=== PATIENT | male | born 1960 | race African-American/Black ===

== ENCOUNTER 2024-11-16 16:19 | Outpatient (AMB) | payer OTHER, SELFPAY ==
--- OUTSIDE RECORDS SUMMARY | 2024-11-16 16:20 | XMS_ITS | Clinical Summary ---
Author Organization [facility] Address [address] [place] [address] Care Team Providers Care President Practicing Urologist Name Role Phone Philomena Mendez Primary Care Provider [phone] Source Comments PLEASE NOTE, if this patient is a minor, it may be UNLAWFUL to discuss sensitive information that is contained in these records (such as FAMILY PLANNING, MENTAL HEALTH or SUBSTANCE ABUSE) with the minor patient's parent or other person without the patient's specific authorization.[facility] Allergies No known active allergies Medications metFORMIN (GLUCOPHAGE) 500 mg tablet Take 500 mg by mouth twice a day 4 Active BIKTARVY 50-200-25 mg tabIndications: Asymptomatic HIV infection (HCC-CMS) Take 1 Tablet by mouth daily. VACATION REFILL 90 Tablet 1 5 Active albuterol HFA (VENTOLIN HFA) 90 mcg/actuation inhalerIndicati ons:Chronic obstructive pulmonary disease, unspecified COPD type (HCC-CMS) Inhale 1-2 Puffs into the lungs every 6 (six) hours as needed for shortness of breath for up to 30 days 18 g 2 5 11/18/19 25 Active fluticasone propion-salmete roL (ADVAIR DISKUS) 250-50 mcg/dose diskus inhalerIndicati ons:Chronic obstructive pulmonary disease, unspecified COPD type (HCC-CMS) Inhale 1 Puff into the lungs 2 (two) times daily 120 Each 3 5 Active atorvastatin (LIPITOR) 80 mg tabletIndicatio ns:Coronary artery disease involving [place] heart without angina pectoris, unspecified vessel or lesion type Take 1 Tablet by mouth once daily 90 Tablet 1 5 Active apixaban (ELIQUIS) 5 mg tab Take 1 Tablet by mouth 2 (two) times daily 90 Tablet 5 Active metoprolol succinate XL (TOPROL-XL) 25 mg 24 hr tabletIndicatio ns:Coronary artery disease involving [place] heart without angina pectoris, unspecified vessel or lesion type Take 1 Tablet by mouth daily 90 Tablet 1 5 Active ezetimibe (ZETIA) 10 mg tablet Take 1 Tablet by mouth once daily 90 Tablet 1 5 Active TAB-A-RIC 400 mcg tab Take 1 Tablet by mouth daily. Separate from Biktarvy by 6 hours 90 Tablet 3 5 Active ammonium lactate (AMLACTIN) 12 % cream Apply topically as needed for dry skin 140 g 3 5 Active ammonium lactate (AMLACTIN) 12 % cream Apply topically as needed for dry skin 140 g 3 4 10/19/19 25 Discontinu ed(Reorder (E-Cancel Not Sent)) TAB-A-RIC 400 mcg tab Take 1 Tablet by mouth daily. Separate from Biktarvy by 6 hours 90 Tablet 3 4 10/19/19 25 Discontinu ed(Reorder (E-Cancel Not Sent)) atorvastatin (LIPITOR) 80 mg tabletIndicatio ns:Coronary artery disease involving [place] heart without angina pectoris, unspecified vessel or lesion type Take 1 Tablet by mouth once daily 90 Tablet 1 4 10/19/19 25 Discontinu ed(Reorder (E-Cancel Not Sent)) metoprolol succinate XL (TOPROL-XL) 25 mg 24 hr tabletIndicatio ns:Coronary artery disease involving [place] heart without angina pectoris, unspecified vessel or lesion type Take 1 Tablet by mouth daily 90 Tablet 1 4 10/19/19 25 Discontinu ed(Reorder (E-Cancel Not Sent)) albuterol HFA (VENTOLIN HFA) 90 mcg/actuation inhalerIndicati ons:Chronic obstructive pulmonary disease, unspecified COPD type (HCC-CMS) Inhale 1-2 Puffs into the lungs every 6 (six) hours as needed for shortness of breath for up to 30 days 18 g 2 4 10/19/19 25 Discontinu ed(Reorder (E-Cancel Not Sent)) ezetimibe (ZETIA) 10 mg tablet Take 1 Tablet by mouth once daily 90 Tablet 1 4 10/19/19 25 Discontinu ed(Reorder (E-Cancel Not Sent)) apixaban (ELIQUIS) 5 mg tab Take 1 Tablet by mouth 2 (two) times daily 90 Tablet 4 10/19/19 25 Discontinu ed(Reorder (E-Cancel Not Sent)) fluticasone propion-salmete roL (ADVAIR DISKUS) 250-50 mcg/dose diskus inhalerIndicati ons:Chronic obstructive pulmonary disease, unspecified COPD type ([facility]) Inhale 1 Puff into the lungs 2 (two) times daily 120 Each 3 4 10/19/19 25 Discontinu ed(Reorder (E-Cancel Not Sent)) BIKTARVY 50-200-25 mg tabIndications: Asymptomatic HIV infection ([facility]-CMS) Take 1 Tablet by mouth daily. VACATION REFILL 90 Tablet 1 4 10/19/19 25 Discontinu ed(Reorder (E-Cancel Not Sent)) Active Problems Problem Noted Date Diagnosed Date Multiple lung nodules on CT 01/21/2023 Overview (02/05/2023): LDCT 10/24/2022- 3mm solid nodule in upper lobe 5mm solid nodule in right upper lobe 8mm solid nodule in LL lobe 6mm solid nodule in RLL 4mm solid nodule in RLL 3mm solid nodule in JOHAN 6mm solid nodule in LLL Severe centrilobular emphysema, linear atelectasis left posterior costophrenic angle LUNG RADS category 4A( suspicious 5-15% chance of malignancy) Radiologist recommend LDCT repeat in 3 months - was done 01/29/2023 At risk for decreased bone density 01/21/2023 Overview (01/21/2023): Bone dexa 10/04/2022, normal bone density LS z score -1.4, L fem neck z-score -0.7, left total hip z-score -0.6 Coronary artery disease invo lving [place] heart without angina pectoris 09/21/2022 History of COPD 09/21/2022 History of heart attack 09/21/2022 Overview (09/23/2022): CA x1 2020- stents x 3. Sees radio board operator announcer Dr. Trey Chavez - sees three times a year Kaposi's sarcoma, unspecified ([facility]) 09/21/20 Chronic ulcer of left leg, l imited to breakdown of skin ([facility]) 09/21/2022 Tobacco abuse 09/21/2022 Adjustment disorder with mixed anxiety and depre ssed mood 08/15/2022 Asymptomatic HIV infection ([facility]) 02/24/2014 Overview (04/01/2023): Dx 1986 , vale 300 Initiated ART 1987 OI hx: PCP, [place] Denies lymphadenopathy, fatigue, night sweats, vision changes, myalgias, rashes ART Hx Viread, Combivir, TZV Atripla--->(switched 01/2018 bc VL 103 and CD4 >400 but KS growing despite only a few doses missed atripla) Biktarvy- does not recall otherwise. 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 -PI- intermediate resistance to SQV/IDV, low level resistance to ATR/FPV Cachexia ([facility]) 06/04/2012 History of DVT (deep vein thrombosis) 05/25/2012 Overview (09/23/2022): Hx DVT 1997 unknown cause (possibly r/t flight) -stopped coumadin 2012 ok'd by hem Resolved Problems Problem Noted Date Diagnosed Date Resolved Date Lichenified eczema 09/21/2022 2 Mixed emotional features as adjustment reaction 01/27/2014 09/23/2022 Lymphadenopathy 05/25/2012 09/23/2022 Encounters Date Type Department Care Team Description 09/01/2024 11:15 AM EST Office Visit [facility] [address] [place] [address] Philomena Mendez Asymptomatic HIV infection ([facility]) (Primary Dx); Encounter for long-term (current) use of medications from Last 3 Months Immunizations Name Administration Dates Next Due Flu, Preservative Free 08/21/2023,2020,08/26/2016,08/28 INFLUENZA, SEASONAL, INJECTA BLE, PRESERVATIVE FREE 07/07/2024 JASVIR COVID-19 VACCINE 01/10/2021 MENINGOCOCCAL MCV4O (MENVEO) 05/18/2019 MODERNA COVID-19 VACCINE BIV ALENT, BLUE CAP, 6M+ 09/23/2022 PNEUMOCOCCAL CONJUGATE PCV 13 03/19/2016 PNEUMOCOCCAL POLYSACCHARIDE PPV23 05/18/2019 Smallpox Mpox (JYNNEOS) Vaccine 07/03/2022,05/31 TDAP 11/08/2019 ZOSTER VACCINE, RECOMBINANT (SHINGRIX) 2 Family History Medical History Relation Name Comments Colon Cancer Other Father in Law Relation Name Status Comments Father Other Father in Law Social History Tobacco Use Types Packs/Day Years Used Date Smoking Tobacco: Every Day Cigarettes Smokeless Tobacco: Never Alcohol Use Standard Drinks/Week Comments Yes 0 (1 standard drink = 0.6 oz pur e alcohol) Social Connections Answer Date Recorded Connectedness 0 06/25/2024 Financial Resource Strain Answer Date R ecorded Financial Resource Strain 0 2021 Stress Answer Date Recorded Stress 0 07/12/2022 Physical Activity Answer Date Recorded Physical Activity 0 07/12/2022 Food Insecurity Answer Date Recorded Food 0 07/08/2024 Transportation Needs Answer Date Record ed Transportation 0 07/12/2022 Housing Stability Answer Date Recorded Housing 0 07/12/2022 Safety and Environment Answer Date Demarco rded Safety 0 07/12/2022 Utilities Answer Date Recorded Utilities 0 07/12/2022 Employment Answer Date Recorded Stress 0 06/25/2024 Sex and Gender Information Value Date Recorded Sex Assigned at Male 08/15/2022 5:19 AM PDT Legal Sex Male 6:59 AM PDT Gender Identity Male 07/22/2022 10:02 AM PDT Sexual Orientation Son 07/22/2022 10 :02 AM PDT Last Filed Vital Signs Vital Sign Reading Time Taken Comments Blood Pressure 132/75 09/01/2024 11:26 AM EST Pulse 71 09/01/2024 11:26 AM EST Temperature 36.8 ??C (98.2 ??F) 09/01/2024 11:[address] Respiratory Rate 16 09/01/2024 11:26 AM EST Oxygen Saturation 94% 09/01/2024 11:26 AM EST Inhaled Oxygen Concentration - - Weight 74.2 kg (163 lb 9.6 oz) 09/01/2024 11:26 AM EST Height 170.2 cm (5' 7 ) 09/01/2024 11:26 AM EST Body Mass Index 25.62 09/01/2024 11:26 AM EST Plan of Treatment Health Maintenance Due Date Last Done Comments Hepatitis B Screening 1960 Tobacco Cessation Counseling (#1) 1960 Imm-MMR (1 of 2 - Risk 2-dos e series) 1978 Imm-Hepatitis A (1 of 2 - Ri sk 2-dose series) 1979 CT Colonography 2005 Colonoscopy 2005 Colorectal Cancer Screening 2005 FIT/gFOBT 2005 Fecal DNA 2005 Flexible Sigmoidoscopy 2005 Imm-Meningococcal (2 - Risk 2-dose series) 07/13/2019 05/18/2019 Imm-Hepatitis B (1 of 3 - Ri sk 3-dose series) 2020 Lipid Screening 09/23/2023 09/23/2022, 01/2022, 03/25/2022, Additional history exists Imm-Pneumococcal (3 of 3 - PPSV23, PCV20 or PCV21) 05/18/2024 05/18/2019, 03/19/2016 Byt-UPSIW-25 ( season) 2024 09/23/2022, 03/25/2022, 08/27/2021, Additional history exists Alcohol and Drug Screen 10/13/2024 09/01/2024, 09/01 Depression Annual Screen 10/13/2024 09/23/2022 Anal Pap Testing 03/24/2025 03/24/2024, , 06/07/2020, Additional history exists Diabetes Screening 09/01/2025 09/01/2024, 0 04/06/2024, 03/24/2024, Additional history exists Hypertension Screening (#1) 09/01/2025 Imm-DTaP/Tdap/Td (2 - Td or Tdap) 11/08/2029 020 Imm-Zoster, Recombinant Discontinued 05/21/2022 Imm-Mpox (formerly Monkeypox) Completed 07/03/2022, 05/31/2022 Hepatitis C Screening Completed 01/20/2023 , 09/23/2022, 08/27/2021, Additional history exists Imm-Influenza Completed 07/07/2024, 06/2023, 08/27/2021, Additional history exists Procedures Procedure Name Priority Date/Time Associated Diagnosis Comments T CELLS ABSOLUTE CD4&CD8 COUNT RATIO Routine 09/01/2024 12:14 PM EST Asymptomatic HIV infection (HCC-CMS) Encounter for long-term (current) use of medications IADNA HIV-1 QUANT & REVERSE NAIL CUTTER Routine 09/01/2024 12:14 PM EST Asymptomatic HIV infection (HCC-[facility]) Encounter for long-term (current) use of medications HEMOGLOBIN GLYCOSYLATED A1C Routine 09/01/2024 12:14 PM EST Asymptomatic HIV infection (HCC-CMS) Encounter for long-term (current) use of medications ANAL (RECTAL) CYTOLOGY Routine 1:52 PM EDT Asymptomatic HIV infection (HCC-CMS) History of heart attack Coronary artery disease involving [place] heart without angina pectoris, unspecified vessel or lesion type Screening for malignant neoplasm of the rectum Encounter for long-term (current) use of medications HEPATITIS C ANTIBODY WITH REFLEX TO HCV, RNA, QUANTITATIVE, REAL-TIME PCR (REFL) Routine 01/20/2023 3:58 PM EDT Asymptomatic HIV infection (HCC-CMS) LIPID PANEL Routine 09/23/2022 2:54 PM EST Asymptomatic HIV infection (HCC-CMS) from Last 3 Months or Most Recently Relevant to Health Maintenance Results * HIV 1, QUANT, REAL-TIME PCR (09/01/2024 12:14 PM EST) HIV-1,RNA,PCR,ULTR A <20 D <20 copies/mL [facility] Comment: HIV-1 ULTRAQUANT,RNA INTERPRETATION ? HIV-1 (copies/mL) ?Interpretation ? <20 ND ?Not Detected ? <20 D ? Detected* ? 20 - >10,000,000 ?Detected ?*Low positive values for HIV-1, PCR may not be ?useful for diagnostic evaluation. NOTE: Results for [employer] 8800 HIV-1 assay reports ?with a range of <20-10 million copies/mL. This test ?should be used for prognostic purposes only. HIV-1 RNA (log-10) <1.30 D <1.30 log-10 [facility] Blood Blood / Unknown 09/01/2024 1 2:14 PM EST 09/01/2024 9:14 PM EST Philomena Mendez LAB - BLOOD DRAW Final Result [facility] [address] [place] [address], * (ABNORMAL) T CELLS ABSOLUTE CD4&CD8 COUNT RATIO (09/01/2024 12:14 PM EST) WBC 5.55 3.66 - 10.60 x10(3)/uL [facility] RBC 4.96 3.94 - 5.76 x10(6)/uL [facility] HGB 15.1 12.0 - 16.9 g/dL [facility] HCT 44.2 34.6 - 49.6 % [facility] MCV 89.1 78.0 - 98.0 fL [facility] MCH 30.4 25.8 - 33.1 pg [facility] MCHC 34.2 31.7 - 35.3 g/dL [facility] RDW 12.5 12.2 - 15.3 % [facility] POLYS 41.1 34.9 - 75.3 % [facility] ABSOLUTE POLYS COUNT 2.28 1.30 - 7.00 x10(3)/uL [facility] LYMPH % 45.9 14.0 - 51.8 % [facility] ABSOLUTE LYMPHOCYTE COUNT 2.55 0.80 - 3.00 x10(3)/uL [facility] MONOS 8.5 3.5 - 13.2 % [facility] ABSOLUTE MONOCYTE COUNT 0.47 0.00 - 1.00 x10(3)/uL [facility] EOS 3.6 0.0 - 6.2 % [facility] ABSOLUTE EOSINOPHIL COUNT 0.20 0.00 - 0.40 x10(3)/uL [facility] BASOPHILS 0.7 0.0 - 1.0 % [facility] ABSOLUTE BASOPHIL COUNT 0.04 0.00 - 0.10 x10(3)/uL [facility] IMMATURE GRANULOCYTES 0.2 0.0 - 1.0 % [facility] PLATELET 213 140 - 425 x10(3)/uL [facility] MPV 11.7 8.6 - 12.1 fL [facility] IG, ABS. COUNT 0.01 0.00 - 0.09 x10(3)/uL [facility] % CD 3 POS. LYMPH. 66.8 54.9 - 87.2 % [facility] ABSOLUTE CD 3 1,702 859 - 2,957 cells/uL [facility] % CD 4 POS. LYMPH. 26.1(L) 31.6 - 60.4 % [facility] ABSOLUTE CD 4 HELPER 665 591 - 1,588 cells/uL [facility] % CD 8 POS. LYMPH. 40.1 12.9 - 49.9 % [facility] ABSOLUTE CD 8 (SUPP) 1,022 213 - 1,782 cells/uL [facility] CD4/CD8 RATIO 0.65 0.60 - 4.40 [facility] CD19, PERCENTAGE 16.8 6.9 - 27.4 % [facility] TOTAL B CELLS CD19, ABSOLUTE 428 110 - 822 cells/uL [facility] CD16+/CD56+ NK-IUH 16.0 4.5 - 33.1 % [facility] ABS CD16+/CD56+-IUH 408 105 - 834 cells/uL [facility] Comment:Note: IMMUNE DEF.[facility])CD4/CD8: Reference ranges eff. 02/18/2014. Blood Blood / Unknown 09/01/2024 1 2:14 PM EST 09/01/2024 9:14 PM EST Philomena Mendez LAB - BLOOD DRAW Final Result [facility] [address] [place] [address], * (ABNORMAL) HEMOGLOBIN GLYCOSYLATED A1C (09/01/2024 12:14 PM EST) Hemoglobin A1c (Glycohgb) 6.7(H) <5.7 % [facility] Comment: HEMOGLOBIN A1c AND eAG REFERENCE RANGES ? A1c(%) ? DIABETES CATEGORY* ? <5.7 ? Normal (non-diabetic) ?5.7-6.4 ? Increased risk of diabetes ? =>6.5 ?Consistent with diabetes ? A1c(%) ? eAG(ESTIMATED AVERAGE PLASMA GLUCOSE)(mg/dL) ?6 ? 126 ?7 ? 154 ?8 ? 183 ?9 ? 212 ? 10 ? 240 ? 11 ? 269 ? 12 ? 298 ? *recommended ranges-[place] [employer](2010) NOTE: The amount of glycated hemoglobin as measured by the HbA1c test may be ?overestimated in Americans and should not be used as the sole ?parameter of glycemic burden. ??Similarly, hemolysis, genetic hemoglobin ?variants and chemically modified hemoglobin derivatives (as seen in ?renal failure, smoking, aspirin use) may also affect glycated hemoglobin ?levels. Blood Blood / Unknown 09/01/2024 1 2:14 PM EST 09/01/2024 9:14 PM EST Philomena Mendez LAB - BLOOD DRAW Final Result Performing Organization Address City/[facility] [address]/ZIP Co de Phone Number [facility] [address] [place] [address], * (ABNORMAL) ANAL (RECTAL) CYTOLOGY (03/24/2024 1:52 PM EDT) ANAL CYTOPATHOLOGY, THINPREP ASC-US(A) Normal [facility] Comment: DIAGNOSIS: ? Atypical squamous cells of undetermined ? significance (ASC-US) ADEQUACY: ?Satisfactory for evaluation / No transformation ? zone component identified. SPECIMEN SOURCE: ?? ANAL CYTOPATHOLOGY, THINPREP, ANAL CLINICAL ? INFORMATION: ? Provided Diagnosis Codes: ? Z21,I25.2,I25.10,Z12.12,Z79.899 ELECTRONICALLY ? SIGNED BY: ? Screened By: Adalgisa Hedrick CT (ASCP) ? Pathologist Review By: Amira Davila M.D. ? Case Electronically Signed 03/26/2024 RECTAL SWAB Specimen from rectum / Unknown 03/24/2024 1:52 PM EDT 03/24/2024 10:49 PM EDT Philomena Mendez LAB - NO BLOOD DRAW Final Result Performing Organization Address City/[facility] [address]/ZIP Co de Phone Number [facility] [address] [place] [address], [place] [phone] * HEPATITIS C ANTIBODY WITH REFLEX TO HCV, RNA, QUANTITATIVE, REAL-TIME PCR (REFL) (01/20/2023 3:58 PM EDT) HCV AB Non Reactive Non Reactive [facility] Blood Blood / Unknown 01/20/2023 3 :58 PM EDT 01/20/2023 Narrative [facility] - 01/21/2023 7:06 AM EDT Performed at: ??01 - [facility] [address] ??[id number] Airplane Navigator: Lou Aldana MD, Phone: ??[phone] Danyell Mitchell LAB - BLOOD DRAW Final Result Performing Organization Address [facility] [address]/[facility] de Phone Number [facility] * LIPID PANEL (09/23/2022 2:54 PM EST) CHOLESTEROL, TOTAL 161 100 - 199 mg/dL [facility] TRIGLYCERIDES 85 0 - 149 mg/dL [facility] HDL CHOLESTEROL 48 >39 mg/dL [facility] VLDL CHOLESTEROL KECIA 16 5 - 40 mg/dL [facility] LDL CHOL CALC (NIH) 97 0 - 99 mg/dL [facility] Blood Blood / Unknown 09/23/2022 2 :54 PM EST 09/23/2022 Narrative [facility] - 09/24/2022 3:06 AM EST Performed at: ??01 - [facility] [address] ??[id number] Airplane Navigator: Lilli Caruso MD, Phone: ??[phone] Danyell Mitchell LAB - BLOOD DRAW Final Result Performing Organization Address City/[facility] [address]/[facility] Co de Phone Number [facility] from Last 3 Months or Most Recently Relevant to Health Maintenance Insurance [facility] Member Subscriber Plan / Payer (Ef fective 2016-Present) Name:Dez Aaron Relation to Subscriber:Self Name:Dez Aaron Payer ID:[id number] Group ID:Not on file Type:Managed Medicaid Address: [address] [place] [address] [facility] Member Subscriber Plan / Payer (Ef fective 2016-Present) Name:Dez Aaron Relation to Subscriber:Self Name:Dez Aaron Payer ID:[id number] Group ID:Not on file Type:Medicaid Address: [address] [place] [address] Care Teams President Practicing Urologist Relationship Specialty Start Date End Date Philomena Mendez [address] [place] [address] PCP - General CONSUMER AFFAIRS DIRECTOR Nurse Practitioner 06/04/23
--- OUTSIDE RECORDS SUMMARY | 2024-11-16 16:20 | XMS_ITS | Encounter Summary ---
Author Organization [facility] Address [address] [place] [address] Care Team Providers Care Ed Educational Aide Name Role Phone Philomena Mendez Primary Care Provider [phone] Reason for Visit * Reason Comments Office Visit: Converted Data Conversion Encounter Details Date Type Department Care Team (Late st Contact Info) Description 08/06/2022 Dental Interim Note [facility] [address] [address] Default, Provider [place] Social History Tobacco Use Types Packs/Day Years Used Date Smoking Tobacco: Never Assessed Social Connections Answer Date Recorded Social Connections and Isolation 0 07/12/2022 Financial Resource Strain Answer Date R ecorded Financial Resource Strain 0 2021 Stress Answer Date Recorded Stress 0 07/12/2022 Physical Activity Answer Date Recorded Physical Activity 0 07/12/2022 Food Insecurity Answer Date Recorded Food 0 07/12/2022 Transportation Needs Answer Date Record ed Transportation 0 07/12/2022 Housing Stability Answer Date Recorded Housing 0 07/12/2022 Safety and Environment Answer Date Demarco rded Safety 0 07/12/2022 Utilities Answer Date Recorded Utilities 0 07/12/2022 Employment Answer Date Recorded Employment 0 07/12/2022 Sex and Gender Information Value Date Recorded Sex Assigned at Male 08/15/2022 5:19 AM PDT Legal Sex Male 6:59 AM PDT Gender Identity Male 07/22/2022 10:02 AM PDT Sexual Orientation Son 07/22/2022 10 :02 AM PDT documented as of this encounter Plan of Treatment Not on file documented as of this encounter Visit Diagnoses Not on filedocumented in this encounter Care Teams Ed Educational Aide Relationship Specialty Start Date End Date Philomena Mendez [address] [place] [address] PCP - General CAN OPERATOR Nurse Practitioner 06/04/23 documented as of this encounter
[2024-11-16 16:37] VITALS: BP 116/80; PULSE 82; O2SAT 96; BMI 26.5
--- NOTE | 2024-11-16 16:37 | A.OFFPC_ITS ---
Vital Signs 11/16/24 16:37 Height 5 ft 5.75 in Weight 163 lb BMI 26.5 BP 116/80 Blood Pressure Location Lt brachial Position Sitting Pulse 82 Pulse Source Pulse Oximeter Pulse Oximetry (%) 96 Oxygen Delivery Method Room Air Intake Visit Reasons: establish care Electronic Test Technician Required: No Accompanied by: Self / Same As Patient Allergies No Known Allergies Allergy (Verified 11/16/24 17:03) Medication List - Last Reconciled 11/16/24 by Roberto Carlos Nuñez MD ammonium lactate 12% appl topical apixaban (Eliquis) 5 mg PO BID atorvastatin 80 mg PO DAILY lsytrtdpg-zldmnlzj-sicnzgi ala 50-200-25 mg (Biktarvy) 1 tab PO DAILY ezetimibe 10 mg PO DAILY fluticasone propion-salmeterol 250-50 mcg/dose (Advair Diskus) inhalation isosorbide mononitrate ER 30 mg PO DAILY metformin 500 mg PO BID metoprolol succinate ER 25 mg PO DAILY multivitamin with folic acid 400 mcg (One Daily Essential) 1 tab PO DAILY multivitamin with folic acid 400 mcg (Tab-A-Landon) 1 tab PO DAILY Tobacco use date assessed: 11/16/24 Fall risk assessment: No Falls in past year Last assessed Fall Risk: 11/16/24 Dental Screening Dental Screen Date: 11/16/24 Did you have a dental visit in the last 12 months?: No Did you have a dental problem in the last 6 months where you did not have access to dental care?: No Was dental information given to patient?: No HPI establish care HPI Details Patient comes in today to establish care - is a new patient to the practice Patient moved here from [facility] a couple of months ago on 09/12/24 States that he has multiple medical conditions and is on several medications Relates that his previous PCP gave him enough refills on his medications for several months but he will eventually need to get his Rx refilled in a few months (+) HIV and states that his CD4 count wa s most recently at 665 on 09/01/24 Patient states that he feels okay He denies any headaches or dizziness Denies any chest pains, no increased SOB No nausea/vomiting, no abdominal pain No change in bowel habits noted Adds that he has a patch of hypopigmented rash around the tip of his penis that he states has been present for a couple of weeks now and would like to get checked and make sure that he does not have diabetes [facility] Medical History (Updated 11/22/24 @ 00:33 by Roberto Carlos Nuñez MD) History 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 History of cocaine abuse COPD (chronic obstructive pulmonary disease) Myocardial infarction Coronary atherosclerosis Kaposi's sarcoma Mixed hyperlipidemia HIV (human immunodeficiency virus infection) Surgical History (Updated 11/22/24 @ 00:09 by Roberto Carlos Nuñez MD) History of coronary artery stent placement History of mandibular surgery Family History Other Diabetes Social History Housing: Apartment Patient Tobacco Use Status: Former Tobacco user e-Cigarette/Vaping Use: Currently Using service: No Current occupational status: unemployed Current occupational exposures/hazards: No Cognitive needs: No Hearing needs: No Vision needs: No Questionnaire PHQ-9 Over the last 2 weeks, how often have you been bothered by any of the following problems? 1. Little interest or pleasure in doing things: several days 2. Feeling down, depressed, or hopeless: several days 3. Trouble falling or staying asleep, or sleeping too much: not at all 4. Feeling tired or having little energy: not at all 5. Poor appetite or overeating: not at all 6. Feeling bad about yourself - or that you are a failure or have let yourself or your family down: not at all 7. Trouble concentrating on things, such as reading the newspaper or watching television: several days 8. Moving or speaking so slowly that other people could have noticed. Or the opposite - being so fidgety or restless that you have been moving around a lot more than usual: not at all 9. Thoughts that you would be better off or of hurting yourself in some way: not at all Total score: 3 Depression Screening Interpretation: Negative Depression Screening Done: Yes 87213 - PHQ-9 Billing: Yes Source: Developed by Drs. Blade Aguilar, Mee Balderas, Leopoldo Sheppard and colleagues, with an educational bill from [employer]. Thrive Questionnaire Date Thrive assessed: 11/16/24 I am a: Patient What is your living situation today?: I have a place to live, but I am worried about losing it in the future Within the past 12 months, did the food you bought not last and you didn't have the money to get more?: Never true Within the past 12 months, did you worry whether your food would run out before you got money to buy more?: Never true Do you have trouble paying for medicines?: No Do you have trouble getting transportation to medical appointments?: No Do you have trouble paying your heating and electricity bill?: No Do you have trouble taking care of your child, family member or friend?: No Do you have trouble with day-to-day activities such as bathing, preparing meals, shopping, managing finances, etc.?: No Are you currently unemployed and looking for a job?: No Are you interested in more education?: No Please select the resources that you would like help with: Housing/Alf Currently or been in a relationship where the following occur: No concerns reported THRIVE Score: 1 AUDIT C Alcohol Use Questionnaire (AUDIT-C) 1. How often do you have a drink containing alcohol?: Never 3. How often do you have six or more drinks on one occasion?: Never Total Score: 0 Score Reviewed/Action Taken: Yes JUAN-7 AMB Questionnaire JUAN-7 Date JUAN - 7 assessed: 11/16/24 Feeling nervous, anxious, or on edge: 0 = Not at all Not being able to stop or control worryin = Not at all Worrying too much about different things: 0 = Not at all Trouble relaxin = Not at all Being so restless that it is hard to sit still: 0 = Not at all Becoming easily annoyed or irritable: 0 = Not at all Feeling afraid as if something awful might happen: 0 = Not at all Total JUAN-7 score (0-4 normal; 5-9 mild; 10-14 moderate; 15-21 severe): 0 Source: Developed by Drs. Blade Aguilar, Mee Balderas, Leopoldo Sheppard and colleagues, with an educational bill from [employer]. Review of Systems Const Denies chills, Denies fatigue, Denies fever(s) and Denies headache(s) ENT Denies dysphagia, Denies dizziness, Denies otalgia, Denies headache(s), Denies neck pain, Denies odynophagia and Denies sore throat Card Denies chest pain, Denies palpitations and Denies dyspnea Resp Denies chest congestion, Denies cough and Denies dyspnea GI Denies abdominal pain, Denies constipation, Denies dysphagia, Denies heartburn, Denies diarrhea, Denies nausea, Denies odynophagia and Denies vomiting Denies dysuria, Denies nocturia and Denies urinary frequency Musc Denies back pain and Denies neck pain Skin/Breast Reports rash (around the tip of the penis) Neuro Denies dizziness and Denies headache(s) Endo Denies fatigue and Denies palpitations Physical exam (Primary Care) Vital Signs: Last Vital Signs Pulse 82 11/16/24 16:37 BP 116/80 11/16/24 16:37 Pulse Ox 96 11/16/24 16:37 Oxygen Delivery Method Room Air 11/16/24 16:37 BMI result Body Mass Index 26.5 Tobacco/Smoking Status: Tobacco use Status Tobacco use date assessed 11/16/24 11/16/24 16:47 Patient Tobacco Use Status Former Tobacco user 11/16/24 16:47 e-Cigarette/Vaping Use Currently Using 11/16/24 16:47 PHQ-9: PHQ-9 Score PHQ-9: Total score 3 11/16/24 17:08 Depression Screening Interpretation: Negative Thrive Assessment: Date of Thrive Assessment Date Thrive assessed 11/16/24 11/16/24 16:47 Currently or been in a relationship where the following occur: No concerns reported Const General: no acute distress and alert HENMT Ears: TM's normal bilaterally and EAC's normal Throat: Yes posterior oropharynx normal and Yes tonsils normal (no TP congestion) Neck Neck: Yes supple and No lymphadenopathy Thyroid: Thyroid normal Resp Auscultation: clear to auscultation bilaterally, no rales and no wheezes Cardio Rate: regular rate Rhythm: regular rhythm Heart sounds: no murmurs GI Palpation (GI): Soft to palpation and nontender Auscultation: normal bowel sounds General: Yes no CVA tenderness Back/Spine/Pelvis Back: no CVA tenderness Thoracic/Lumbar Spine: No lumbar spinal tenderness Skin Other: (+) large patch of hypopigmented rash around the glans penis Extrem General: Yes no clubbing, cyanosis or edema Coding Level of Care Code New Pt Level 4 (21647) Diagnoses Atherosclerosis of [place] coronary artery of [place] heart without angina pectoris I25.10 Coronary Disease-Associated Artery/Lesion type: [place] artery [place] vs. transplanted heart: [place] heart Associated angina: without angina Mixed hyperlipidemia E78.2 Chronic bronchitis, unspecified chronic bronchitis type J42 COPD type: chronic bronchitis Chronic bronchitis type: unspecified Currently asymptomatic HIV infection, with history of HIV-related illness B20 HIV symptom status: currently asymptomatic, with history of HIV-related illness History of DVT of lower extremity Z86.718 Penile rash R21 Additional Codes PHQ-9 - 46304 - PHQ-9 Billing: Yes ([id number]) Assessment & Plan Assessment & Plan (1) Coronary atherosclerosis: Code(s): I25.10 - Atherosclerotic heart disease of [place] coronary artery without angina pectoris Category: Medical Qualifiers: Coronary Disease-Associated Artery/Lesion type: [place] artery [place] vs. transplanted heart: [place] heart Associated angina: without angina Qualified Code(s): I25.10 - Atherosclerotic heart disease of [place] coronary artery without angina pectoris Plan: S/P myocardial infarction on 02/02/2021 Patient underwent coronary angiography and stenting of the circulflex, LAD and RCA Continue Isosorbide Mononitrate ER 30 mg QD, Aspirin 81 mg QD and Metoprolol ER 25 mg QD (2) Mixed hyperlipidemia: Code(s): E78.2 - Mixed hyperlipidemia Category: Medical Plan: Reinforced low cholesterol diet Continue Atorvastatin 80 mg QD and Ezetimibe 10 mg QD Will have patient recheck his labs and fasting lipids in 2 months for follow up (3) COPD (chronic obstructive pulmonary disease): Code(s): J44.9 - Chronic obstructive pulmonary disease, unspecified Category: Medical Qualifiers: COPD type: chronic bronchitis Chronic bronchitis type: unspecified Qualified Code(s): J42 - Unspecified chronic bronchitis Plan: Continue Advair Diskus 250-50 mcg 1 inhalation BID (4) HIV (human immunodeficiency virus infection): Code(s): Z21 - Asymptomatic human immunodeficiency virus [HIV] infection status Category: Medical Qualifiers: HIV symptom status: currently asymptomatic, with history of HIV-related illness Qualified Code(s): B20 - Human immunodeficiency virus [HIV] disease Plan: (+) Hx of Kaposi's sarcoma Patient's most recent CD4 count was at 665 back on 09/01/2024 Continue Biktarvy 50-200-25 mg 1 tablet QD Will refer patient to infectious disease for continuing management of his HIV disease (5) History of DVT of lower extremity: Code(s): Z86.718 - Personal history of other venous thrombosis and embolism Category: Medical Plan: Continue Apixaban 5 mg BID (6) Penile rash: Code(s): R21 - Rash and other nonspecific skin eruption Category: Medical Plan: Patient is advised that this is likely balanitis Will start him for now on Clotrimazole 1% cream BID Will include testing for chlamydia and gonorrhea for further evaluation when patient gets his labs done in a couple of months Plan Follow up in 2 months Orders: Orders Comprehensive [place]. Panel Fast 11/17/24 E78.00 - Pure hypercholesterolemia, unspecified Lipid Panel 11/17/24 E78.00 - Pure hypercholesterolemia, unspecified TSH reflex Free T4 11/17/24 E78.00 - Pure hypercholesterolemia, unspecified UA CC w/rflx Micro + Cult 11/17/24 R30.0 - Dysuria Vitamin D 25-OH Total 11/17/24 E55.9 - Vitamin D deficiency, unspecified Hemoglobin A1c 11/17/24 E11.9 - Type 2 diabetes mellitus without complications Vitamin B12 and Folate 11/17/24 E53.8 - Deficiency of other specified B group vitamins HSV I and II,IHC 11/16/24 R21 - Rash and other nonspecific skin eruption Complete Blood Count Auto Diff 11/17/24 D64.9 - Anemia, unspecified CT NG by PCR 11/17/24 R21 - Rash and other nonspecific skin eruption Referrals Infectious Disease Referral Z21 - Asymptomatic human immunodeficiency virus [HIV] infection status Medications: New clotrimazole 1% 1 appl topical BID 2 weeks 30 grams 0RF
== END 2024-11-16 17:21 | disposition home or self-care (01) ==
PROVIDERS: PCP Internal Medicine; Visit Provider Internal Medicine
DX: I25.10 Atherosclerotic heart disease of native coronary artery without angina pectoris (principal); E78.2 Mixed hyperlipidemia; J42 Unspecified chronic bronchitis; B20 Human immunodeficiency virus [HIV] disease; Z86.718 Personal history of other venous thrombosis and embolism; R21 Rash and other nonspecific skin eruption

== ENCOUNTER → 2024-11-16 16:19 | Outpatient (BNVA) | payer OTHER, SELFPAY | PROVIDERS: Visit Provider Internal Medicine | DX: I25.10 Atherosclerotic heart disease of native coronary artery without angina pectoris (principal); E78.2 Mixed hyperlipidemia; J42 Unspecified chronic bronchitis; B20 Human immunodeficiency virus [HIV] disease; R21 Rash and other nonspecific skin eruption; Z86.718 Personal history of other venous thrombosis and embolism | CPT/HCPCS: 96127; 99202 ==

== ENCOUNTER 2024-11-17 14:51 | Outpatient (REF) | payer OTHER, SELFPAY ==
[2024-11-17 15:23] LABS: MANUAL DIFF FLAG NO
[2024-11-17 15:36] LABS: Basophils Percent Auto 0.7 % (0-2); Eosinophils Absolute Auto 0.2 X10*3/uL (0.0-0.4); Eosinophils Percent Auto 3.9 % (0-4); Hematocrit 41.7 % (42.0-52.0); Hemoglobin 13.8 g/dl (14.0-18.0); Imm Gran Abs Auto 0.01 X10*3/uL (0.00-0.03); Imm Gran Pct Auto 0.2 % (0.0-0.4); Lymphocytes Absolute Auto 2.1 X10*3/uL (1.2-4.9); Lymphocytes Percent Auto 35.7 % (20-40); Mean Corpuscular HGB Conc 33.1 g/dl (31.0-36.0); Mean Corpuscular Hemoglobin 29.6 pg (27.0-33.0); Mean Corpuscular Volume 89.5 fL (80.0-98.0); Mean Platelet Volume 9.5 fL (9.4-12.4); Monocytes Absolute Auto 0.5 X10*3/uL (0.1-1.2); Monocytes Percent Auto 8.7 % (2-11); Neutrophils Percent Auto 50.8 % (45-73); Platelet Count 224 X10*3/uL (160-400); Red Blood Count 4.66 X10*6/uL (4.60-5.80); White Blood Count 5.9 X10*3/uL (4.8-10.8)
[2024-11-17 15:42] LABS: Appearance Urine Clear; Color Urine Yellow; Glucose Urine UA Negative (Negative); Leukocyte Esterase Urine Trace (Negative); Nitrite Urine Negative (Negative); Specific Gravity - Urine 1.025 (1.005-1.025); UMIC TRIGGER UACC YES; Urine Blood Negative (Negative); Urine Ketones Trace mg/dL (Negative); Urine Protein Negative (Neg-Trace)
[2024-11-17 15:55] LABS: Bacteria Urine None Seen (None Seen); Hyaline Casts Urine 0-2 /LPF (0-2); RBC Urine 0-2 /HPF (0-2); WBC Urine 0-5 /HPF (0-5)
--- OUTSIDE RECORDS SUMMARY | 2024-11-17 15:59 | XMS_ITS | Encounter Summary ---
Author Organization [facility] Address [address] [place] [address] Care Team Providers Care Gas Engine Mechanic Name Role Phone Philomena Mendez Primary Care Provider [phone] Reason for Visit * Reason Comments Office Visit: Converted Data Conversion Encounter Details Date Type Department Care Team (Late st Contact Info) Description 08/06/2022 Dental Interim Note [facility] [address] [address] Default, Provider PA Social History Tobacco Use Types Packs/Day Years [...] on filedocumented in this encounter Care Teams Gas Engine Mechanic Relationship Specialty Start Date End Date Philomena Mendez [address] [place] [address] PCP - General LODGING FACILITIES ATTENDANT Nurse Practitioner 06/04/23 documented as of this encounter
--- OUTSIDE RECORDS SUMMARY | 2024-11-17 15:59 | XMS_ITS | Clinical Summary ---
Author Organization [facility] Address [address] [place] [address] Care Team Providers Care Communications Manager Name Role Phone Philomena Mendez Primary Care Provider [phone] Source Comments PLEASE NOTE, if this patient [...] 80 mg tabletIndicatio ns:Coronary artery disease involving [place]il[place] heart without angina pectoris, unspecified vessel or lesion type Take 1 Tablet by mouth once daily 90 Tablet 1 5 Active apixaban (ELIQUIS) 5 mg tab Take 1 Tablet by mouth 2 (two) times daily 90 Tablet 5 Active metoprolol succinate XL (TOPROL-XL) 25 mg 24 hr tabletIndicatio ns:Coronary artery disease involving [place] heart without angina pectoris, unspecified vessel or [...] 80 mg tabletIndicatio ns:Coronary artery disease involving [place]ilkat heart without angina pectoris, unspecified vessel or lesion type Take 1 Tablet by mouth once daily 90 Tablet 1 4 10/19/19 25 Discontinu ed(Reorder (E-Cancel Not Sent)) metoprolol succinate XL (TOPROL-XL) 25 mg 24 hr tabletIndicatio ns:Coronary artery disease involving chilkat heart without angina pectoris, unspecified vessel or [...] ons:Chronic obstructive pulmonary disease, unspecified COPD type ([facility]) Inhale 1 Puff into the lungs 2 (two) times daily 120 Each 3 4 10/19/19 25 Discontinu ed(Reorder (E-Cancel Not Sent)) BIKTARVY 50-200-25 mg tabIndications: Asymptomatic HIV infection ([facility]) Take 1 Tablet by [...] z-score -0.6 Coronary artery disease invo lving chilkat heart without angina pectoris 09/21/2022 History of COPD 09/21/2022 History of heart attack 09/21/2022 Overview (09/23/2022): NC x1 2020- stents x 3. Sees flag signaler Dr. Trey Chavez - sees three times a year Kaposi's sarcoma, unspecified ([facility]) 09/21/20 Chronic ulcer of left leg, l imited to breakdown of skin ([facility]) 09/21/2022 Tobacco abuse 09/21/2022 Adjustment disorder with mixed anxiety and depre ssed mood 08/15/2022 Asymptomatic HIV infection ([facility]) 02/24/2014 Overview (04/01/2023): Dx 1986 , vale [...] SQV/IDV, low level resistance to ATR/FPV Cachexia ([facility]) 06/04/2012 History of DVT (deep vein thrombosis) 05/25/2012 Overview (09/23/2022): Hx DVT 1997 unknown cause (possibly r/t flight) -stopped coumadin 2012 ok'd by hem Resolved Problems Problem Noted Date Diagnosed Date Resolved Date Lichenified eczema 09/21/2022 2 Mixed emotional features as adjustment reaction 01/27/2014 09/23/2022 Lymphadenopathy 05/25/2012 09/23/2022 Encounters Date Type Department Care Team Description 09/01/2024 11:15 AM EST Office Visit [facility] [address] [place] [address] Philomena Mendez Asymptomatic HIV infection ([facility]) (Primary Dx); Encounter for long-term (current) [...] PPSV23, PCV20 or PCV21) 05/18/2024 05/18/2019, 03/19/2016 [id number] ( season) 2024 09/23/2022, 03/25/2022, 08/27/2021, Additional [...] of medications IADNA HIV-1 QUANT & REVERSE TRAILER ASSEMBLER Routine 09/01/2024 12:14 PM EST Asymptomatic HIV infection ([facility]) Encounter for long-term (current) use of medications HEMOGLOBIN GLYCOSYLATED A1C Routine 09/01/2024 12:14 PM EST Asymptomatic HIV infection ([facility]) Encounter for long-term (current) use of medications ANAL (RECTAL) CYTOLOGY Routine 1:52 PM EDT Asymptomatic HIV infection ([facility]) History of heart attack Coronary artery disease involving chilkat heart without angina pectoris, unspecified vessel or [...] EST) HIV-1,RNA,PCR,ULTR A <20 D <20 copies/mL [facility] Comment: HIV-1 ULTRAQUANT,RNA INTERPRETATION ? HIV-1 (copies/mL) [...] HIV-1 RNA (log-10) <1.30 D <1.30 log-10 [facility] Blood Blood / Unknown 09/01/2024 1 2:14 PM EST 09/01/2024 9:14 PM EST Philomena Mendez LAB - BLOOD DRAW Final Result [facility] [address] [place] [address], * (ABNORMAL) T CELLS ABSOLUTE CD4&CD8 COUNT RATIO (09/01/2024 12:14 PM EST) WBC 5.55 3.66 - 10.60 x10(3)/uL [facility] RBC 4.96 3.94 - 5.76 x10(6)/uL [facility] HGB 15.1 12.0 - 16.9 g/dL [facility] HCT 44.2 34.6 - 49.6 % [facility] MCV 89.1 78.0 - 98.0 fL [facility] MCH 30.4 25.8 - 33.1 pg [facility] MCHC 34.2 31.7 - 35.3 g/dL [facility] RDW 12.5 12.2 - 15.3 % [facility] POLYS 41.1 34.9 - 75.3 % [facility] ABSOLUTE POLYS COUNT 2.28 1.30 - 7.00 x10(3)/uL [facility] LYMPH % 45.9 14.0 - 51.8 % [facility] ABSOLUTE LYMPHOCYTE COUNT 2.55 0.80 - 3.00 x10(3)/uL [facility] MONOS 8.5 3.5 - 13.2 % [facility] ABSOLUTE MONOCYTE COUNT 0.47 0.00 - 1.00 x10(3)/uL [facility] EOS 3.6 0.0 - 6.2 % [facility] ABSOLUTE EOSINOPHIL COUNT 0.20 0.00 - 0.40 x10(3)/uL [facility] BASOPHILS 0.7 0.0 - 1.0 % [facility] ABSOLUTE BASOPHIL COUNT 0.04 0.00 - 0.10 x10(3)/uL [facility] IMMATURE GRANULOCYTES 0.2 0.0 - 1.0 % [facility] PLATELET 213 140 - 425 x10(3)/uL [facility] MPV 11.7 8.6 - 12.1 fL [facility] IG, ABS. COUNT 0.01 0.00 - 0.09 x10(3)/uL [facility] % CD 3 POS. LYMPH. 66.8 54.9 - 87.2 % [facility] ABSOLUTE CD 3 1,702 859 - 2,957 cells/uL [facility] % CD 4 POS. LYMPH. 26.1(L) 31.6 - 60.4 % [facility] ABSOLUTE CD 4 HELPER 665 591 - 1,588 cells/uL [facility] % CD 8 POS. LYMPH. 40.1 12.9 - 49.9 % [facility] ABSOLUTE CD 8 (SUPP) 1,022 213 - 1,782 cells/uL [facility] CD4/CD8 RATIO 0.65 0.60 - 4.40 [facility] CD19, PERCENTAGE 16.8 6.9 - 27.4 % [facility] TOTAL B CELLS CD19, ABSOLUTE 428 110 - 822 cells/uL [facility] CD16+/CD56+ NK-IUH 16.0 4.5 - 33.1 % [facility] ABS CD16+/CD56+-IUH 408 105 - 834 cells/uL [facility] Comment:Note: IMMUNE DEF.DALTON EL([facility])CD4/CD8: Reference ranges eff. 02/18/2014. Blood Blood / Unknown 09/01/2024 1 2:14 PM EST 09/01/2024 9:14 PM EST Philomena Mendez LAB - BLOOD DRAW Final Result [facility] [address] [place] [address], * (ABNORMAL) HEMOGLOBIN GLYCOSYLATED A1C (09/01/2024 12:14 PM EST) Hemoglobin A1c (Glycohgb) 6.7(H) <5.7 % [facility] Comment: HEMOGLOBIN A1c AND eAG REFERENCE RANGES ? A1c(%) ? DIABETES CATEGORY* ? <5.7 ? Normal (non-diabetic) ?5.7-6.4 ? Increased risk of diabetes ? =>6.5 ?Consistent with diabetes ? A1c(%) ? eAG(ESTIMATED AVERAGE PLASMA GLUCOSE)(mg/dL) ?6 ? 126 ?7 ? 154 ?8 ? 183 ?9 ? 212 ? 10 ? 240 ? 11 ? 269 ? 12 ? 298 ? *recommended ranges-[place] [employer](2010) NOTE: The amount of glycated [...] BLOOD DRAW Final Result Performing Organization Address City/[facility]/ZIP Co de Phone Number [facility] [address] [place] [address], * (ABNORMAL) ANAL (RECTAL) CYTOLOGY (03/24/2024 1:52 PM EDT) ANAL CYTOPATHOLOGY, THINPREP ASC-US(A) Normal [facility] Comment: DIAGNOSIS: ? Atypical squamous cells [...] BLOOD DRAW Final Result Performing Organization Address City/[facility]/ZIP Co de Phone Number [facility] [address] [place] [address], [place] [phone] * HEPATITIS C ANTIBODY WITH REFLEX TO HCV, RNA, QUANTITATIVE, REAL-TIME PCR (REFL) (01/20/2023 3:58 PM EDT) HCV AB Non Reactive Non Reactive [facility] Blood Blood / Unknown 01/20/2023 3 :58 PM EDT 01/20/2023 Narrative [facility] - 01/21/2023 7:06 AM EDT Performed at: ??01 - [facility] [address] ??[id number] Adjunct Instructor In Economics: Lou Aldana MD, Phone: ??[phone] Danyell Mitchell LAB - BLOOD DRAW Final Result Performing Organization Address [facility] de Phone Number [facility] [...] AM EST Performed at: ??01 - [facility] [address] ??[id number] Adjunct Instructor In Economics: Lilli Caruso MD, Phone: ??[phone] Danyell Mitchell LAB - BLOOD DRAW Final Result Performing Organization Address City/[facility] Co de Phone Number [facility] from Last 3 Months or Most Recently Relevant to Health Maintenance Insurance [facility] Member Subscriber Plan / Payer (Ef fective 2016-Present) Name:Dez Aaron Relation to Subscriber:Self Name:Dez Aaron Payer ID:[id number] Group ID:Not on file Type:Managed Medicaid Address: [address] [place] [address] [facility] Medicaid Address: [address] [place] [id number] [facility] Member Subscriber Plan / Payer (Ef fective 2016-Present) Name:Dez Aaron Relation to Subscriber:Self Name:Dez Aaron Payer ID:[id number] Group ID:Not on file Type:Medicaid Address: [address] [place] [address] Care Teams Communications Manager Relationship Specialty Start Date End Date Philomena Mendez [address] [place] [address] PCP - General PROCUREMENT REPRESENTATIVE Nurse Practitioner 06/04/23
[2024-11-17 16:40] LABS: Estimated Average Glucose 126 mg/dL; Hemoglobin A1C 158.6163 umol/L; Total Hemoglobin (HGBA1C) 3747.9596 umol/L
[2024-11-17 16:52] LABS: Alanine Aminotransferase 21 U/L (0-40); Albumin Level 4.1 g/dL (3.5-5.0); Anion Gap 10 (12-20); Aspartate Amino Transferase 28 U/L (5-37); Bilirubin Total 0.6 mg/dL (0.0-1.0); Blood Urea Nitrogen 17 mg/dL (9-16); Calcium 10.2 mg/dL (8.4-10.2); Carbon Dioxide 28 mmol/L (22-29); Chloride 103 mmol/L (96-108); Cholesterol 135 mg/dL (<200); Estimated Glomerular Filt Rate > 60; Glucose Fasting 76 mg/dL (60-99); HDL Cholesterol 41 mg/dL (>40); LDL Cholesterol Calculated 78 mg/dL (<100); Potassium 3.9 mmol/L (3.3-5.1); Sodium 137 mmol/L (135-145); Total Protein 9.3 g/dL (6.5-8.0); Triglycerides 84 mg/dL (<150)
[2024-11-17 16:59] LABS: Vitamin D 25-OH Total 32.5 ng/mL (>30)
[2024-11-17 17:10] LABS: Alkaline Phosphatase 87 U/L (39-117)
[2024-11-17 17:11] LABS: Vitamin B12 521 pg/mL (200-900)
[2024-11-18 04:51] LABS: CT PCR NOT DETECTED (Not Detect.); NG PCR NOT DETECTED (Not Detect.)
== END 2024-11-17 14:52 | disposition home or self-care (01) ==
LOC: HO.LAB 14:51
PROVIDERS: PCP Internal Medicine; Visit Provider Internal Medicine
DX: E78.00 Pure hypercholesterolemia, unspecified (principal); E53.8 Deficiency of other specified B group vitamins; R21 Rash and other nonspecific skin eruption; E55.9 Vitamin D deficiency, unspecified; E11.9 Type 2 diabetes mellitus without complications; D64.9 Anemia, unspecified; R30.0 Dysuria; Z11.3 Encounter for screening for infections with a predominantly sexual mode of transmission
CPT/HCPCS: 36415; 80053; 80061; 81001; 82306; 82607; 82746; 83036; 84443; 85025; 86695; 86696; 87491; 87591

== ENCOUNTER 2024-12-13 14:07 | Outpatient (AMB) | payer OTHER, SELFPAY ==
--- NOTE | 2024-12-13 15:01 | A.OFFVIS_ITS ---
Vital Signs 12/13/24 15:02 Height 5 ft 5 in Weight 163 lb BMI 27.1 Pulse 76 Pulse Source Pulse Oximeter Temp 98.2 F Pulse Oximetry (%) 95 Oxygen Delivery Method Room Air Intake Visit Reasons: HIV,ref.DR Nuñez Allergies No Known Allergies Allergy (Verified 12/13/24 15:05) HPI Comments Details: He is here for HIV care. Records reviewed from [facility] in [place]. He has lived in [place] most of life. He is living with friend here now. He was diagnosed asymptomatic HIV positive in 1985 with CD4 count vale of 300. He reports OIs of PJP and KS. He started ART in 1987 with Viread, Combivir and then Trizivir. He has been on Atripla and in 01/2018 switched to Biktarvy as KS was still progressing with CD4 count over 400 and viral load 103. He had genotype pansensitive of HAART in 2011 and then again in 02/2023 showed some PI mutation ( E35D) and INSTIS maier sensitive. He has been adherent to Biktarvy and reports undetectable on 09/01/2024. He has ASCUS with negative HPV 05/2024 and due for recheck this May. He has persistent reddened lesion on tip penis which is shrinking with clotrimazole cream he reports. He also has multiple lung nodules on screening CT chest and is supposed to repeat. He reports normal PSA in past and is following with PCP. [facility] Medical History (Updated 12/14/24 @ 22:22 by Analilia Rodrigues MD) Osteopenia Lung nodules Penile ulcer History 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 History of cocaine abuse COPD (chronic obstructive pulmonary disease) Myocardial infarction Coronary atherosclerosis Kaposi's sarcoma Mixed hyperlipidemia HIV (human immunodeficiency virus infection) (Unknown) Surgical History History of coronary artery stent placement History of mandibular surgery Family History Other Diabetes Social History Housing: Apartment Patient Tobacco Use Status: Former Tobacco user e-Cigarette/Vaping Use: Currently Using service: No Current occupational status: unemployed Current occupational exposures/hazards: No Cognitive needs: No Hearing needs: No Vision needs: No Review of Systems Const All systems reviewed & are unremarkable except as noted in HPI and below Physical Exam Vital Signs: Last Vital Signs Temp 98.2 F 12/13/24 15:02 Pulse 76 12/13/24 15:02 Pulse Ox 95 12/13/24 15:02 Oxygen Delivery Method Room Air 12/13/24 15:02 BMI result Body Mass Index 27.1 Const General: cooperative Orientation/consciousness: patient oriented x3 HEENT Head: Yes normal to inspection Mouth: Normal oral and palatal mucosa present Eyes General: appearance normal, both eyes and all related structures Pupils: Equal, round and reactive pupils present Resp Effort & Inspection: normal respiratory effort Cardio Rate: regular rate Rhythm: regular rhythm GI Palpation (GI): Soft to palpation and nontender Other: 1 cm reddened nonnodular lesion tip of penis,not painful General: Yes no CVA tenderness Back/Spine/Pelvis Back: no CVA tenderness Skin General skin exam: no rashes or lesions noted Neuro General: patient oriented x3 Cranial nerves: Yes CN's II-XII intact bilaterally and Yes Equal, round and reactive pupils present Extrem General: Yes normal to inspection Psych Appearance: grossly normal Assessment & Plan Assessment & Plan (1) HIV (human immunodeficiency virus infection): Onset Date: Unknown Comment: He is doing well. Continue Biktarvy. Check CD4 count and viral load as well as syphilis,Hepatitis C testing per labs. See in six months and need to do rectal Pap then. Code(s): Z21 - Asymptomatic human immunodeficiency virus [HIV] infection status Category: Medical Qualifiers: HIV symptom status: currently asymptomatic, with history of HIV-related illness Qualified Code(s): B20 - Human immunodeficiency virus [HIV] disease Plan: na (2) Penile ulcer: Comment: Check RPR. Gave some Valtrex and let us know if better. Further check with Urology if not better for malignancy. Code(s): N48.5 - Ulcer of penis Category: Medical Plan: na (3) Lung nodules: Comment: Check screening CT chest Code(s): R91.8 - Other nonspecific abnormal finding of lung field Category: Medical Plan: na (4) Osteopenia: Comment: Check bone density Code(s): M85.80 - Other specified disorders of bone density and structure, unspecified site Category: Medical Plan: na Orders: Orders Complete Blood Count Auto Diff 12/13/24 - Human immunodeficiency virus [HIV] disease Hepatitis C Viral Load 12/13/24 - Human immunodeficiency virus [HIV] disease RPR Monitor reflex titer 12/13/24 B2 - Human immunodeficiency virus [HIV] disease HIV-1 RNA QN PCR Expanded 12/13/24 - Human immunodeficiency virus [HIV] disease PSA,Total (Free>4and<10) 12/13/24 B20 - Human immunodeficiency virus [HIV] disease Testosterone, Total 12/13/24 B20 - Human immunodeficiency virus [HIV] disease Hepatitis B Core Antibody 12/13/24 - Human immunodeficiency virus [HIV] disease Hepatitis B Surface Antigen 12/13/24 - Human immunodeficiency virus [HIV] disease T Spot TB 12/13/240 - Human immunodeficiency virus [HIV] disease XR DEXA axial skeleton Today M85.80 - Other specified disorders of bone density and structure, unspecified site Basic Metabolic Panel 12/13/24 B20 - Human immunodeficiency virus [HIV] disease Liver Panel 12/13/24 B20 - Human immunodeficiency virus [HIV] disease Lymphocyte Subset Panel 3 12/13/24 B20 - Human immunodeficiency virus [HIV] disease Hepatitis B Surface Antibody 12/13/240 - Human immunodeficiency virus [HIV] disease CT chest wo con - High Res Today R91.8 - Other nonspecific abnormal finding of lung field Medications: New valacyclovir (Valtrex) 1,000 mg PO TID 7 days 21 tabs 0RF Coding Level of Care Code New Pt Level 4 (61186) Diagnoses Currently asymptomatic HIV infection, with history of HIV-related illness B20 HIV symptom status: currently asymptomatic, with history of HIV-related illness Penile ulcer N48.5 Lung nodules R91.8 Osteopenia M85.80
[2024-12-13 15:02] VITALS: PULSE 76; TEMP 36.8; O2SAT 95; BMI 27.1
--- OUTSIDE RECORDS SUMMARY | 2024-12-13 16:56 | XMS_ITS | Encounter Summary ---
Author Organization [facility] Address [address] [place] [address] Care Team Providers Care Radio Mechanic Helper Name Role Phone Philomena Mendez Primary Care Provider [phone] Reason for Visit * Reason Comments Office Visit: Converted Data Conversion Encounter Details Date Type Department Care Team (Late st Contact Info) Description 08/06/2022 Dental Interim Note [facility] [address] [address] Default, Provider [place] Social History Tobacco Use Types Packs/Day Years [...] on filedocumented in this encounter Care Teams Radio Mechanic Helper Relationship Specialty Start Date End Date Philomena Mendez [address] [place] [address] PCP - General GEOTECHNICAL ENGINEERING TECHNICIAN Nurse Practitioner 06/04/23 documented as of this encounter
--- OUTSIDE RECORDS SUMMARY | 2024-12-13 16:56 | XMS_ITS | Clinical Summary ---
Author Organization [facility] Address [address] [place] [address] Care Team Providers Care Firmware Test Engineer Name Role Phone Philomena Mendez Primary Care Provider [phone] Source Comments PLEASE NOTE, if this patient [...] a day 4 Active BIKTARVY 50-200-25 mg tabIndications:A symptomatic HIV infection (HCC-CMS) Take 1 Tablet by mouth daily. VACATION REFILL 90 Tablet 1 5 Active albuterol HFA (VENTOLIN HFA) 90 mcg/actuation inhalerIndicatio ns:Chronic obstructive pulmonary disease, unspecified COPD type (HCC-CMS) Inhale 1-2 Puffs into the lungs every 6 (six) hours as needed for shortness of breath for up to 30 days 18 g 2 5 Active fluticasone propion-salmeter oL (ADVAIR DISKUS) 250-50 mcg/dose diskus inhalerIndicatio ns:Chronic obstructive pulmonary disease, unspecified COPD type (HCC-CMS) Inhale 1 Puff into the lungs 2 (two) times daily 120 Each 3 5 Active atorvastatin (LIPITOR) 80 mg tabletIndication s:Coronary artery disease involving [place] heart without angina pectoris, unspecified vessel or lesion type Take 1 Tablet by mouth once daily 90 Tablet 1 5 Active apixaban (ELIQUIS) 5 mg tab Take 1 Tablet by mouth 2 (two) times daily 90 Tablet 5 Active metoprolol succinate XL (TOPROL-XL) 25 mg 24 hr tabletIndication s:Coronary artery disease involving [place] heart without angina pectoris, unspecified vessel or [...] dry skin 140 g 3 5 Active Active Problems Problem Noted Date Diagnosed Date [...] z-score -0.6 Coronary artery disease invo lving [place] heart without angina pectoris 09/21/2022 History of COPD 09/21/2022 History of heart attack 09/21/2022 Overview (09/23/2022): [place] x1 2020- stents x 3. Sees scrapper Dr. Trey Chavez - sees three times a year Kaposi's sarcoma, unspecified ([facility]) 09/21/20 22 Chronic ulcer of left leg, l imited to breakdown of skin ([facility]) 09/21/2022 Tobacco abuse 09/21/2022 Adjustment disorder with mixed anxiety and depre ssed mood 08/15/2022 Asymptomatic HIV infection ([facility]) 02/24/2014 Overview (04/01/2023): Dx 1985 , vale 300 Initiated ART 1987 OI [...] SQV/IDV, low level resistance to ATR/FPV Cachexia ([facility]) 06/04/2012 History of DVT (deep vein thrombosis) 05/25/2012 Overview (09/23/2022): Hx DVT 1997 unknown cause (possibly r/t flight) -stopped coumadin 2012 ok'd by hem Resolved Problems Problem Noted Date Diagnosed Date Resolved Date Lichenified eczema 09/21/2022 2 Mixed emotional features as adjustment reaction 01/27/2014 09/23/2022 Lymphadenopathy 05/25/2012 09/23/2022 Immunizations Name Administration Dates Next Due Flu, Preservative Free 08/21/2023,2020,08/26/2016,08/28 INFLUENZA, SEASONAL, INJECTA BLE, PRESERVATIVE FREE 07/07/2024 JASVIR COVID-19 VACCINE 01/10/2021 MENINGOCOCCAL MCV4O (MENVEO) 05/18/2019 MODERNA COVID-19 VACCINE BIV YULIANA JOHNSON CAP, 6M+ 09/23/2022 PNEUMOCOCCAL CONJUGATE PCV 13 03/19/2016 PNEUMOCOCCAL POLYSACCHARIDE PPV23 05/18/2019 Smallpox Mpox (JYNNEOS) Vaccine 07/03/2022,05/31 TDAP 11/08/2019 ZOSTER VACCINE, RECOMBINANT (SHINGRIX) Family History Medical History Relation Name Comments [...] 3-dose series) 2020 Lipid Screening 09/23/2023 09/23/2022, 08/0 01/2022, 03/25/2022, Additional history exists Imm-Pneumococcal (3 of 3 - PPSV23, PCV20 or PCV21) 05/18/2024 05/18/2019, 03/19/2016 [id number] ( season) 2024 09/23/2022, 03/25/2022, 08/27/2021, Additional [...] Procedure Name Priority Date/Time Associated Diagnosis Comments HEMOGLOBIN GLYCOSYLATED A1C Routine 09/01/2024 12:14 PM EST Asymptomatic HIV infection (HCC-CMS) Encounter for long-term (current) use of medications ANAL (RECTAL) CYTOLOGY Routine 03/24/2024 1:52 PM EDT Asymptomatic HIV infection (HCC-CMS) History of heart attack Coronary artery disease involving [place] heart without angina pectoris, unspecified vessel or [...] Recently Relevant to Health Maintenance Results * (ABNORMAL) HEMOGLOBIN GLYCOSYLATED A1C (09/01/2024 12:14 PM EST) Hemoglobin A1c (Glycohgb) 6.7(H) <5.7 % [facility] Comment: HEMOGLOBIN A1c AND eAG REFERENCE RANGES ? A1c(%) ? DIABETES CATEGORY* ? <5.7 ? Normal (non-diabetic) ?5.7-6.4 ? Increased risk of diabetes ? =>6.5 ?Consistent with diabetes ? A1c(%) ? eAG(ESTIMATED AVERAGE PLASMA GLUCOSE)(mg/dL) ?6 ? 126 ?7 ? 154 ?8 ? 183 ?9 ? 212 ? 10 ? 240 ? 11 ? 269 ? 12 ? 298 ? *recommended ranges-[place] Diabetes Association(2010) NOTE: The amount of glycated [...] 2:14 PM EST 09/01/2024 9:14 PM EST us Philomena Mendez LAB - BLOOD DRAW Final Result Performing Organization Address City/[facility]/ZIP Co de Phone Number [facility] [address] [place] [address], * (ABNORMAL) ANAL (RECTAL) CYTOLOGY (03/24/2024 1:52 PM EDT) Pathologist [facility] ANAL CYTOPATHOLOGY, THINPREP ASC-US(A) Normal [facility] Comment: DIAGNOSIS: ? Atypical squamous cells of undetermined ? significance (ASC-US) ADEQUACY: ?Satisfactory for evaluation / No transformation ? zone component identified. SPECIMEN SOURCE: ?? ANAL CYTOPATHOLOGY, THINPREP, ANAL CLINICAL ? INFORMATION: ? Provided Diagnosis Codes: ? Z21,I25.2,I25.10,Z12.12,Z79.899 ELECTRONICALLY ? SIGNED BY: ? Screened By: ROSANNA Whitney (ASCP) ? Pathologist Review By: Amira Davila M.D. ? Case Electronically Signed 03/26/2024 RECTAL SWAB Specimen from rectum / Unknown 03/24/2024 1:52 PM EDT 03/24/2024 10:49 PM EDT Philomena Mendez LAB - NO BLOOD DRAW Final Result [facility] [address] [place] [address], * HEPATITIS C ANTIBODY WITH REFLEX TO HCV, RNA, QUANTITATIVE, REAL-TIME PCR (REFL) (01/20/2023 3:58 PM EDT) HCV AB Non Reactive Non Reactive [facility] Blood Blood / Unknown 01/20/2023 3 :58 PM EDT 01/20/2023 Narrative [facility] - 01/21/2023 7:06 AM EDT Performed at: ??01 - [facility] [address] ??[id number] Senior Sales Engineer: Lou Aldana MD, Phone: ??[phone] Danyell Mitchell LAB - BLOOD DRAW Final Result [facility] * LIPID PANEL (09/23/2022 2:54 PM EST) Pathologist [facility] CHOLESTEROL, TOTAL 161 100 - 199 mg/dL [facility] TRIGLYCERIDES 85 0 - 149 mg/dL [facility] HDL CHOLESTEROL 48 >39 mg/dL [facility] VLDL CHOLESTEROL KECIA 16 5 - 40 mg/dL [facility] LDL CHOL CALC (NIH) 97 0 - 99 mg/dL [facility] Blood Blood / Unknown 09/23/2022 2 :54 PM EST 09/23/2022 Narrative [facility] - 09/24/2022 3:06 AM EST Performed at: ??01 - [facility] [address] ??[id number] Senior Sales Engineer: Lilli Caruso MD, Phone: ??[phone] Danyell Mitchell LAB - BLOOD DRAW Final Result [facility] from Last 3 Months or Most Recently Relevant to Health Maintenance Insurance [employer] Member Subscriber Plan / Payer (Ef fective 2016-Present) Name:Dez Aaron Relation to Subscriber:Self Name:Galen Dez Payer ID:[id number] Group ID:Not on file Type:Managed Medicaid Address: [place] [address] [address] [place] [address] MEDICAID DENTAL [employer] Member Subscriber Plan / Payer (Ef fective 2016-Present) Name:Dez Aaron Relation to Subscriber:Self Name:Dez Aaron Payer ID:[id number] Group ID:Not on file Type:Medicaid Address: [address] [address] Care Teams Firmware Test Engineer Relationship Specialty Start Date End Date Philomena Mendez [address] [place] [address] PCP - General MANAGER SPECIALTY Nurse Practitioner 06/04/23
== END 2024-12-13 15:10 | disposition home or self-care (01) ==
PROVIDERS: PCP Internal Medicine; Visit Provider Internal Medicine
DX: B20 Human immunodeficiency virus [HIV] disease (principal); N48.5 Ulcer of penis; R91.8 Other nonspecific abnormal finding of lung field; M85.80 Other specified disorders of bone density and structure, unspecified site
CPT/HCPCS: 99204

== ENCOUNTER 2024-12-13 14:07 | Outpatient (REF) | payer OTHER, SELFPAY ==
[2024-12-13 15:54] LABS: MANUAL DIFF FLAG NO
[2024-12-13 16:41] LABS: Basophils Percent Auto 0.5 % (0-2); Eosinophils Absolute Auto 0.2 X10*3/uL (0.0-0.4); Eosinophils Percent Auto 2.9 % (0-4); Hematocrit 41.4 % (42.0-52.0); Hemoglobin 13.8 g/dl (14.0-18.0); Imm Gran Abs Auto 0.01 X10*3/uL (0.00-0.03); Imm Gran Pct Auto 0.2 % (0.0-0.4); Lymphocytes Percent Auto 34.6 % (20-40); Mean Corpuscular HGB Conc 33.3 g/dl (31.0-36.0); Mean Corpuscular Hemoglobin 29.6 pg (27.0-33.0); Mean Corpuscular Volume 88.7 fL (80.0-98.0); Mean Platelet Volume 10.3 fL (9.4-12.4); Monocytes Absolute Auto 0.4 X10*3/uL (0.1-1.2); Neutrophils Absolute Auto 3.2 x10*3/uL (2.0-8.3); Neutrophils Percent Auto 54.8 % (45-73); Platelet Count 222 X10*3/uL (160-400); Red Blood Count 4.67 X10*6/uL (4.60-5.80); Red Cell Distribution Width 13.2 % (11.0-16.0); White Blood Count 5.9 X10*3/uL (4.8-10.8)
[2024-12-13 17:15] LABS: Alanine Aminotransferase 20 U/L (0-40); Albumin Level 4.1 g/dL (3.5-5.0); Alkaline Phosphatase 78 U/L (39-117); Anion Gap 12 (12-20); Aspartate Amino Transferase 24 U/L (5-37); Bilirubin Direct 0.2 mg/dL (0.0-0.5); Bilirubin Total 0.4 mg/dL (0.0-1.0); Blood Urea Nitrogen 20 mg/dL (9-16); Calcium 10.1 mg/dL (8.4-10.2); Carbon Dioxide 27 mmol/L (22-29); Chloride 106 mmol/L (96-108); Estimated Glomerular Filt Rate > 60; Glucose Random 69 mg/dL (60-115); Potassium 3.9 mmol/L (3.3-5.1); Sodium 141 mmol/L (135-145); Total Protein 9.2 g/dL (6.5-8.0)
[2024-12-13 17:36] LABS: PSA,Total (Free>4and<10) 1.75 ng/mL (0.00-4.00)
--- OUTSIDE RECORDS SUMMARY | 2024-12-13 18:20 | XMS_ITS | Clinical Summary ---
Author Organization [facility] Address [address] [place] [address] Care Team Providers Care Combination Machine Tool Operator Name Role Phone Philomena Mendez Primary Care Provider [phone] Source Comments PLEASE NOTE, if this patient [...] 80 mg tabletIndication s:Coronary artery disease involving [place] heart without angina pectoris, unspecified vessel or lesion type Take 1 Tablet by mouth once daily 90 Tablet 1 5 Active apixaban (ELIQUIS) 5 mg tab Take 1 Tablet by mouth 2 (two) times daily 90 Tablet 5 Active metoprolol succinate XL (TOPROL-XL) 25 mg 24 hr tabletIndication s:Coronary artery disease involving [place] heart without angina pectoris, unspecified vessel or [...] z-score -0.6 Coronary artery disease invo lving [place] heart without angina pectoris 09/21/2022 History of COPD 09/21/2022 History of heart attack 09/21/2022 Overview (09/23/2022): [place] x1 2020- stents x 3. Sees cytology teacher Dr. Trey Chavez - sees three times a year Kaposi's sarcoma, unspecified ([facility]) 09/21/20 22 Chronic ulcer of left leg, l imited to breakdown of skin ([facility]) 09/21/2022 Tobacco abuse 09/21/2022 Adjustment disorder with mixed anxiety and depre ssed mood 08/15/2022 Asymptomatic HIV infection ([facility]) 02/24/2014 Overview (04/01/2023): Dx 1985 , vale [...] SQV/IDV, low level resistance to ATR/FPV Cachexia ([facility]) 06/04/2012 History of DVT (deep vein [...] PPSV23, PCV20 or PCV21) 05/18/2024 05/18/2019, 03/19/2016 [id number] ( season) 2024 09/23/2022, 03/25/2022, 08/27/2021, Additional [...] of heart attack Coronary artery disease involving [place] heart without angina pectoris, unspecified vessel or [...] EST) Hemoglobin A1c (Glycohgb) 6.7(H) <5.7 % [facility] Comment: HEMOGLOBIN A1c AND eAG REFERENCE RANGES ? A1c(%) ? DIABETES CATEGORY* ? <5.7 ? Normal (non-diabetic) ?5.7-6.4 ? Increased risk of diabetes ? =>6.5 ?Consistent with diabetes ? A1c(%) ? eAG(ESTIMATED AVERAGE PLASMA GLUCOSE)(mg/dL) ?6 ? 126 ?7 ? 154 ?8 ? 183 ?9 ? 212 ? 10 ? 240 ? 11 ? 269 ? 12 ? 298 ? *recommended ranges-[place] Diabetes Association(2010) NOTE: The amount of glycated [...] BLOOD DRAW Final Result Performing Organization Address City/[facility]/ZIP Co de Phone Number [facility] [address] [place] [address], * (ABNORMAL) ANAL (RECTAL) CYTOLOGY (03/24/2024 1:52 PM EDT) Pathologist [facility] ANAL CYTOPATHOLOGY, THINPREP ASC-US(A) Normal [facility] Comment: DIAGNOSIS: ? Atypical squamous cells [...] LAB - NO BLOOD DRAW Final Result [facility] [address] [place] [address], * HEPATITIS C ANTIBODY WITH REFLEX TO HCV, RNA, QUANTITATIVE, REAL-TIME PCR (REFL) (01/20/2023 3:58 PM EDT) HCV AB Non Reactive Non Reactive [facility] Blood Blood / Unknown 01/20/2023 3 :58 PM EDT 01/20/2023 Narrative [facility] - 01/21/2023 7:06 AM EDT Performed at: ??01 - [facility] [address] ??[id number] Tonal Regulator: Lou Aldana MD, Phone: ??[phone] Danyell Mitchell LAB - BLOOD DRAW Final Result [facility] * LIPID PANEL (09/23/2022 2:54 PM EST) Pathologist [facility] CHOLESTEROL, TOTAL 161 100 - 199 mg/dL [facility] TRIGLYCERIDES 85 0 - 149 mg/dL [facility] HDL CHOLESTEROL 48 >39 mg/dL [facility] VLDL CHOLESTEROL KECIA 16 5 - 40 mg/dL [facility] LDL CHOL CALC (NIH) 97 0 - 99 mg/dL [facility] Blood Blood / Unknown 09/23/2022 2 :54 PM EST 09/23/2022 Narrative [facility] - 09/24/2022 3:06 AM EST Performed at: ??01 - [facility] [address] ??[id number] Tonal Regulator: Lilli Caruso MD, Phone: ??[phone] Danyell Mitchell LAB - BLOOD DRAW Final Result [facility] from Last 3 Months or Most Recently Relevant to Health Maintenance Insurance [employer] Member Subscriber Plan / Payer (Ef fective 2016-Present) Name:Dez Aaron Relation to Subscriber:Self Name:Galen Dez Payer ID:[id number] Group ID:Not on file Type:Managed Medicaid Address: [place] [address] [address] [place] [address] MEDICAID DENTAL [facility] Member Subscriber Plan / Payer (Ef fective 2016-Present) Name:Dez Aaron Relation to Subscriber:Self Name:Dez Aaron Payer ID:[id number] Group ID:Not on file Type:Medicaid Address: [address] [address] Care Teams Combination Machine Tool Operator Relationship Specialty Start Date End Date Philomena Mendez [address] [place] [address] PCP - General HOME HEALTH PROVIDER Nurse Practitioner 06/04/23
--- OUTSIDE RECORDS SUMMARY | 2024-12-13 18:20 | XMS_ITS | Encounter Summary ---
Author Organization [facility] Address [address] [place] [address] Care Team Providers Care Outside Machinist Name Role Phone Philomena Mendez Primary Care Provider [phone] Reason for Visit * Reason Comments Office Visit: Converted Data Conversion Encounter Details Date Type Department Care Team (Late st Contact Info) Description 08/06/2022 Dental Interim Note [facility] [address] [address] Default, Provider [place] Social History Tobacco Use Types Packs/Day Years [...] on filedocumented in this encounter Care Teams Outside Machinist Relationship Specialty Start Date End Date Philomena Mendez [address] [place] [address] PCP - General MUSIC GRAPHER Nurse Practitioner 06/04/23 documented as of this encounter
[2024-12-14 08:14] LABS: HBS Num1 18.74 mIU/mL (0-7.99); HBc Num1 3.07 S/CO (0.00-0.79); HBsAGNum1 0.32 S/CO (0.00-0.99); Hepatitis B Surface Antigen Negative (Negative); ~Hepatitis B Surface Antibody REACTIVE (Nonreactive)
[2024-12-14 10:38] LABS: HBc Num2 2.98 S/CO; HBc Num3 3.18 S/CO; Hepatitis B Core Antibody Reactive (Nonreactive)
[2024-12-14 11:48] LABS: RPR Rapid Plasma Reagin NON-REACTIVE (NON-REACTIVE)
[2024-12-14 14:54] LABS: HCV Log PCR <1.18 NOT DETECTED Log IU/mL (NOT DETECTED); HepC Viral Load <15 NOT DETECTED IU/mL (NOT DETECTED)
[2024-12-15 14:54] LABS: HIV RNA PCR Qn Copies 89 copies/mL (NOT DETECTED); HIV RNA PCR Qn Log Copies 1.95 (NOT DETECTED)
[2024-12-16 16:08] LABS: TS Negative Control Passed; TS Panel A 1; TS Panel B 0; TS Positive Control Passed; TSpotTB Negative (Negative)
[2024-12-16 16:49] LABS: Absolute CD3 Count 1046 cells/uL (840-3060); Absolute CD4 Count 460 cells/uL (490-1740); Absolute CD8 Count 632 cells/uL (180-1170); Absolute Lymphocytes 1537 cells/uL (850-3900); CD4 CD8 Ratio 0.73 (0.86-5.00); Percent CD3 Cells 68 % (57-85); Percent CD4 Cells 30 % (30-61); Percent CD8 Cells 41 % (12-42)
[2024-12-19 13:54] LABS: Testosterone, Total 408 ng/dL (250-1100)
== END 2024-12-13 14:08 | disposition home or self-care (01) ==
LOC: HO.LAB 14:07
PROVIDERS: PCP Internal Medicine; Visit Provider Internal Medicine
DX: B20 Human immunodeficiency virus [HIV] disease (principal); N48.5 Ulcer of penis; R91.8 Other nonspecific abnormal finding of lung field; M85.80 Other specified disorders of bone density and structure, unspecified site
CPT/HCPCS: 36415; 80048; 80076; 84153; 84403; 85025; 86359; 86360; 86481; 86592; 86704; 86706; 87340; 87522; 87536; 99202

== ENCOUNTER 2025-01-10 13:30 | Outpatient (AMB) | payer OTHER, SELFPAY ==
--- NOTE | 2025-01-10 13:36 | A.OFFVIS_ITS ---
Vital Signs 01/10/25 13:42 Height 5 ft 5 in Weight 160 lb BMI 26.6 BP 90/59 L Blood Pressure Location Lt brachial Position Sitting Pulse 87 Pulse Source Pulse Oximeter Pulse Oximetry (%) 98 Oxygen Delivery Method Room Air Intake Visit Reasons: hiv lab result questions/and personal concern Allergies No Known Allergies Allergy (Verified 01/10/25 13:42) HPI HPI hiv lab result questions/and personal concern: Details: He has viral load of 89 and CD4 count of 460. He comes in to get lab results and complains his penile ulcer not better on Valtrex tid for 10 days I told him last visit to get referral to Urologist check biopsy and cultures if not better. [facility] Medical History Osteopenia Lung nodules Penile ulcer History 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 History of cocaine abuse COPD (chronic obstructive pulmonary disease) Myocardial infarction Coronary atherosclerosis Kaposi's sarcoma Mixed hyperlipidemia HIV (human immunodeficiency virus infection) (Unknown) Surgical History History of coronary artery stent placement History of mandibular surgery Family History Other Diabetes Social History Housing: Apartment Patient Tobacco Use Status: Former Tobacco user e-Cigarette/Vaping Use: Currently Using service: No Current occupational status: unemployed Current occupational exposures/hazards: No Cognitive needs: No Hearing needs: No Vision needs: No Review of Systems Const All systems reviewed & are unremarkable except as noted in HPI and below Physical Exam Vital Signs: Last Vital Signs Pulse 87 01/10/25 13:42 BP 90/59 L 01/10/25 13:42 Pulse Ox 98 01/10/25 13:42 Oxygen Delivery Method Room Air 01/10/25 13:42 BMI result Body Mass Index 26.6 Assessment & Plan Assessment & Plan (1) Penile rash: Code(s): R21 - Rash and other nonspecific skin eruption Category: Medical Plan: Follow with PCP for Urology referral. (2) HIV (human immunodeficiency virus infection): Onset Date: Unknown Comment: He is doing well. Continue Biktarvy. Check CD4 count and viral load as well as syphilis,Hepatitis C testing per labs. See in six months and need to do rectal Pap then. Code(s): Z21 - Asymptomatic human immunodeficiency virus [HIV] infection status Category: Medical Qualifiers: HIV symptom status: currently asymptomatic, with history of HIV-related illness Qualified Code(s): B20 - Human immunodeficiency virus [HIV] disease Plan: na Coding Level of Care Code Est Pt Level 3 (00763) Diagnoses Penile rash R21 Currently asymptomatic HIV infection, with history of HIV-related illness B20 HIV symptom status: currently asymptomatic, with history of HIV-related illness
[2025-01-10 13:42] VITALS: BP 90/59; PULSE 87; O2SAT 98; BMI 26.6
--- OUTSIDE RECORDS SUMMARY | 2025-01-10 15:14 | XMS_ITS | Encounter Summary ---
Author Organization [facility] Address [address] [place] [address] Care Team Providers Care Camp Dishwasher Name Role Phone Philomena Mendez Primary Care Provider [phone] Reason for Visit * Reason Comments Office Visit: Converted Data Conversion Encounter Details Date Type Department Care Team (Late st Contact Info) Description 08/06/2022 Dental Interim Note [facility] [address] [address] Default, Provider [place] Social History Tobacco Use Types Packs/Day Years [...] on filedocumented in this encounter Care Teams Camp Dishwasher Relationship Specialty Start Date End Date Philomena Mendez [address] [place] [address] PCP - General TACK CUTTER Nurse Practitioner 06/04/23 documented as of this encounter
--- OUTSIDE RECORDS SUMMARY | 2025-01-10 15:14 | XMS_ITS | Clinical Summary ---
Author Organization [facility] Address [address] [place] [address] Care Team Providers Care Stoner Hand Name Role Phone Philomena Mendez Primary Care Provider [phone] Source Comments PLEASE NOTE, if this patient [...] History of heart attack 09/21/2022 Overview (09/23/2022): ID x1 2020- stents x 3. Sees utility tech Dr. Trey Chavez - sees three times a year Kaposi's sarcoma, unspecified ([facility]) 09/21/20 22 Chronic ulcer of left leg, l imited to breakdown of skin ([facility]) 09/21/2022 Tobacco abuse 09/21/2022 Adjustment disorder with mixed anxiety and depre ssed mood 08/15/2022 Asymptomatic HIV infection ([facility]) 02/24/2014 Overview (04/01/2023): Dx 1985 , vale [...] SQV/IDV, low level resistance to ATR/FPV Cachexia ([facility]) 06/04/2012 History of DVT (deep vein thrombosis) 05/25/2012 Overview (09/23/2022): Hx DVT 1997 unknown cause (possibly r/t flight) -stopped coumadin 2012 ok'd by hem Resolved Problems Problem Noted Date Diagnosed Date Resolved Date Lichenified eczema 09/21/2022 2 Mixed emotional features as adjustment reaction 01/27/2014 09/23/2022 Lymphadenopathy 05/25/2012 09/23/2022 Immunizations Immunization Administration Dates Next Due Flu, Preservative Free [...] Health Maintenance Due Date Last Done Comments Anxiety Screening 1960 Hepatitis B Screening 1960 Tobacco Cessation Counseling [...] 3-dose series) 2020 Lipid Screening 09/23/2023 09/23/2022, 08/01/2022, 03/25/2022, Additional history exists Imm-Pneumococcal (3 of 3 - PPSV23, PCV20 or PCV21) 05/18/2024 05/18/2019, 03/19/2016 [id number] ( season) 2024 09/23/2022, 03/25/2022, 08/27/2021, Additional [...] EST) Hemoglobin A1c (Glycohgb) 6.7(H) <5.7 % [facility] Comment: HEMOGLOBIN A1c AND eAG REFERENCE RANGES ? A1c(%) ? DIABETES CATEGORY* ? <5.7 ? Normal (non-diabetic) ?5.7-6.4 ? Increased risk of diabetes ? =>6.5 ?Consistent with diabetes ? A1c(%) ? eAG(ESTIMATED AVERAGE PLASMA GLUCOSE)(mg/dL) ?6 ? 126 ?7 ? 154 ?8 ? 183 ?9 ? 212 ? 10 ? 240 ? 11 ? 269 ? 12 ? 298 ? *recommended ranges-[place] [employer](2010) NOTE: The amount of glycated [...] BLOOD DRAW Final Result Performing Organization Address City/[facility]/ZIP Co de Phone Number [facility] [address] [place] [address], * (ABNORMAL) ANAL (RECTAL) CYTOLOGY (03/24/2024 1:52 PM EDT) ANAL CYTOPATHOLOGY, THINPREP ASC-US(A) Normal [facility] Comment: DIAGNOSIS: ? Atypical squamous cells [...] LAB - NO BLOOD DRAW Final Result [facility] [address] [place] [address], [place] [phone] * HEPATITIS C ANTIBODY WITH REFLEX TO HCV, RNA, QUANTITATIVE, REAL-TIME PCR (REFL) (01/20/2023 3:58 PM EDT) HCV AB Non Reactive Non Reactive [facility] Blood Blood / Unknown 01/20/2023 3 :58 PM EDT 01/20/2023 Narrative [facility] - 01/21/2023 7:06 AM EDT Performed at: ??01 - [facility] [address] ??[id number] Yarder Boss: Lou Aldana MD, Phone: ??[phone] Danyell Mitchell LAB - BLOOD DRAW Final Result [facility] * LIPID PANEL (09/23/2022 2:54 PM EST) Pathologist [facility] CHOLESTEROL, TOTAL 161 100 - 199 mg/dL [facility] TRIGLYCERIDES 85 0 - 149 mg/dL [facility] HDL CHOLESTEROL 48 >39 mg/dL [facility] VLDL CHOLESTEROL KECIA 16 5 - 40 mg/dL [facility] LDL CHOL CALC (NIH) 97 0 - 99 mg/dL [facility] Blood Blood / Unknown 09/23/2022 2 :54 PM EST 09/23/2022 Narrative [facility] - 09/24/2022 3:06 AM EST Performed at: ??01 - [facility] [address] ??[id number] Yarder Boss: Lilli Caruso MD, Phone: ??[phone] Danyell Mitchell LAB - BLOOD DRAW Final Result [facility] from Last 3 Months or Most Recently Relevant to Health Maintenance Insurance [facility] Member Subscriber Plan / Payer (Ef fective 2016-Present) Name:Galen Dez Relation to Subscriber:Self Name:Galen Dez Payer ID:[id number] Group ID:Not on file Type:Managed Medicaid Address: [place] [address] [address] [place] [address] MEDICAID DENTAL [facility] Member Subscriber Plan / Payer (Ef fective 2016-Present) Name:Dez Aaron Relation to Subscriber:Self Name:Dez Aaron Payer ID:[id number] Group ID:Not on file Type:Medicaid Address: [address] [address] Care Teams Stoner Hand Relationship Specialty Start Date End Date Philomena Mendez [address] [place] [address] PCP - General TICKET SALES SUPERVISOR Nurse Practitioner 06/04/23
== END 2025-01-10 14:33 | disposition home or self-care (01) ==
LOC: HO.HID 13:30
PROVIDERS: PCP Internal Medicine; Visit Provider Internal Medicine
DX: R21 Rash and other nonspecific skin eruption (principal); B20 Human immunodeficiency virus [HIV] disease
CPT/HCPCS: 99213

== ENCOUNTER → 2025-01-10 13:30 | Outpatient (BNVA) | payer OTHER, SELFPAY | PROVIDERS: PCP Internal Medicine; Visit Provider Internal Medicine | DX: B20 Human immunodeficiency virus [HIV] disease (principal); R21 Rash and other nonspecific skin eruption; L98.499 Non-pressure chronic ulcer of skin of other sites with unspecified severity | CPT/HCPCS: 99212 ==

== ENCOUNTER 2025-01-17 08:34 | Outpatient (AMB) | payer OTHER, SELFPAY ==
[2025-01-17 08:39] VITALS: BP 130/74; PULSE 82; O2SAT 95; BMI 26.3
--- NOTE | 2025-01-17 08:39 | A.OFFPC_ITS ---
Vital Signs 01/17/25 08:39 Height 5 ft 5 in Weight 158 lb 4 oz BMI 26.3 BP 130/74 Blood Pressure Location Lt brachial Position Sitting Pulse 82 Pulse Source Pulse Oximeter Pulse Oximetry (%) 95 Oxygen Delivery Method Room Air Intake Visit Reasons: discuss neurologist referral/lab results Cardiac Tech Required: No Accompanied by: Self / Same As Patient Allergies No Known Allergies Allergy (Verified 01/17/25 09:12) Medication List - Last Reconciled 01/17/25 by Roberto Carlos Nuñez MD ammonium lactate 12% appl topical apixaban (Eliquis) 5 mg PO BID atorvastatin 80 mg PO DAILY sfbwxlpne-useqdvbt-wplqkhr ala 50-200-25 mg (Biktarvy) 1 tab PO DAILY 90 days ezetimibe 10 mg PO DAILY fluticasone propion-salmeterol 250-50 mcg/dose (Advair Diskus) 1 inh inhalation BID isosorbide mononitrate ER 30 mg PO DAILY metformin 500 mg PO BID 90 days metoprolol succinate ER 25 mg PO DAILY multivitamin with folic acid 400 mcg (Tab-A-Landon) 1 tab PO DAILY 90 days valacyclovir (Valtrex) 1,000 mg PO TID 7 days Tobacco use date assessed: 01/17/25 Fall risk assessment: No Falls in past year Last assessed Fall Risk: 01/17/25 Dental Screening Dental Screen Date: 01/17/25 Did you have a dental visit in the last 12 months?: No Did you have a dental problem in the last 6 months where you did not have access to dental care?: No Was dental information given to patient?: No HPI discuss neurologist referral/lab results HPI Details Patient comes in today for his follow up visit States that he continues to have the penile rash/lesion that he previously complained about and that the topical Rx that we prescribed for him helped only temporarily and he is requesting for a referral to see urology to have this further evaluated and possibly biopsied States that he feels okay otherwise He denies any headaches or dizziness Denies any chest pains, no increased shortness of breath No nausea/vomiting, no abdominal pain No change in bowel habits noted He also needs several of his Rx refilled States that he had some labs done last month after he was seen by Dr. Rodrigues for Infectious Disease consult then was somewhat concerned about the slight rise in his HIV viral load Recalls that he was out of his antiviral Rx for a few weeks earlier this year when his prescription ran out [facility] Medical History Osteopenia Lung nodules Penile ulcer History 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 History of cocaine abuse COPD (chronic obstructive pulmonary disease) Myocardial infarction Coronary atherosclerosis Kaposi's sarcoma Mixed hyperlipidemia HIV (human immunodeficiency virus infection) (Unknown) Surgical History History of coronary artery stent placement History of mandibular surgery Family History Other Diabetes Social History Housing: Apartment Patient Tobacco Use Status: Former Tobacco user e-Cigarette/Vaping Use: Currently Using service: No Current occupational status: unemployed Current occupational exposures/hazards: No Cognitive needs: No Hearing needs: No Vision needs: No Questionnaire PHQ-9 Over the last 2 weeks, how often have you been bothered by any of the following problems? 1. Little interest or pleasure in doing things: several days 2. Feeling down, depressed, or hopeless: several days 3. Trouble falling or staying asleep, or sleeping too much: not at all 4. Feeling tired or having little energy: not at all 5. Poor appetite or overeating: not at all 6. Feeling bad about yourself - or that you are a failure or have let yourself or your family down: not at all 7. Trouble concentrating on things, such as reading the newspaper or watching television: several days 8. Moving or speaking so slowly that other people could have noticed. Or the opposite - being so fidgety or restless that you have been moving around a lot more than usual: not at all 9. Thoughts that you would be better off or of hurting yourself in some way: not at all Total score: 3 Depression Screening Interpretation: Negative Depression Screening Done: Yes 07175 - PHQ-9 Billing: Yes Source: Developed by Drs. Blade Aguilar, Mee Balderas, Leopoldo Sheppard and colleagues, with an educational bill from [employer]. Thrive Questionnaire Date Thrive assessed: 01/17/25 I am a: Patient What is your living situation today?: I have a place to live, but I am worried about losing it in the future Within the past 12 months, did the food you bought not last and you didn't have the money to get more?: Never true Within the past 12 months, did you worry whether your food would run out before you got money to buy more?: Never true Do you have trouble paying for medicines?: No Do you have trouble getting transportation to medical appointments?: No Do you have trouble paying your heating and electricity bill?: No Do you have trouble taking care of your child, family member or friend?: No Do you have trouble with day-to-day activities such as bathing, preparing meals, shopping, managing finances, etc.?: No Are you currently unemployed and looking for a job?: No Are you interested in more education?: No Please select the resources that you would like help with: Housing/Nursing Home Currently or been in a relationship where the following occur: No concerns reported THRIVE Score: 1 AUDIT C Alcohol Use Questionnaire (AUDIT-C) 1. How often do you have a drink containing alcohol?: Never 3. How often do you have six or more drinks on one occasion?: Never Total Score: 0 Score Reviewed/Action Taken: Yes JUAN-7 AMB Questionnaire JUAN-7 Date JUAN - 7 assessed: 01/17/25 Feeling nervous, anxious, or on edge: 0 = Not at all Not being able to stop or control worryin = Not at all Worrying too much about different things: 0 = Not at all Trouble relaxin = Not at all Being so restless that it is hard to sit still: 0 = Not at all Becoming easily annoyed or irritable: 0 = Not at all Feeling afraid as if something awful might happen: 0 = Not at all Total JUAN-7 score (0-4 normal; 5-9 mild; 10-14 moderate; 15-21 severe): 0 Source: Developed by Drs. Blade Aguilar, Mee Balderas, Leopoldo Sheppard and colleagues, with an educational bill from [employer]. Review of Systems Const Denies chills, Denies fatigue, Denies fever(s) and Denies headache(s) ENT Denies dysphagia, Denies dizziness, Denies otalgia, Denies headache(s), Denies neck pain, Denies odynophagia and Denies sore throat Card Denies chest pain, Denies palpitations and Denies dyspnea Resp Denies chest congestion, Denies cough and Denies dyspnea GI Denies abdominal pain, Denies constipation, Denies dysphagia, Denies heartburn, Denies diarrhea, Denies nausea, Denies odynophagia and Denies vomiting Details: (+) recurrent penile rash/lesion - see HPI Denies difficulty urinating, Denies dysuria, Denies nocturia and Denies urinary frequency Musc Denies back pain and Denies neck pain Skin/Breast Reports rash (around the tip of the penis - recurrent) Neuro Denies dizziness and Denies headache(s) Endo Denies fatigue and Denies palpitations Physical exam (Primary Care) Vital Signs: Last Vital Signs Pulse 82 01/17/25 08:39 BP 130/74 01/17/25 08:39 Pulse Ox 95 01/17/25 08:39 Oxygen Delivery Method Room Air 01/17/25 08:39 BMI result Body Mass Index 26.3 Tobacco/Smoking Status: Tobacco use Status Tobacco use date assessed 01/17/25 01/17/25 08:42 Patient Tobacco Use Status Former Tobacco user 01/17/25 08:42 e-Cigarette/Vaping Use Currently Using 01/17/25 08:42 PHQ-9: PHQ-9 Score PHQ-9: Total score 3 01/17/25 09:14 Depression Screening Interpretation: Negative Thrive Assessment: Date of Thrive Assessment Date Thrive assessed 01/17/25 01/17/25 08:42 Currently or been in a relationship where the following occur: No concerns re ported Const General: no acute distress and alert HENMT Ears: TM's normal bilaterally and EAC's normal Throat: Yes posterior oropharynx normal and Yes tonsils normal (no TP congestion) Neck Neck: Yes supple and No lymphadenopathy Thyroid: Thyroid normal Resp Auscultation: clear to auscultation bilaterally, no rales and no wheezes Cardio Rate: regular rate Rhythm: regular rhythm Heart sounds: no murmurs GI Palpation (GI): Soft to palpation and nontender Auscultation: normal bowel sounds General: Yes no CVA tenderness Back/Spine/Pelvis Back: no CVA tenderness Thoracic/Lumbar Spine: No lumbar spinal tenderness Skin Other: (+) large patch of hypopigmented rash around the glans penis Extrem General: Yes no clubbing, cyanosis or edema Results Reviewed Results Reviewed: Laboratory Tests 11/17/24 11/17/24 12/13/24 15:18 15:22 15:52 WBC 5.9 Hgb 13.8 L Hct 41.4 L Plt Count 222 Sodium 141 Potassium 3.9 Creatinine 1.09 Estimated GFR > 60 Random Glucose 69 Hemoglobin A1c % 6.0 Calcium 10.1 AST 24 ALT 20 Triglycerides 84 Cholesterol 135 LDL Cholesterol, Calc 78 HDL Cholesterol 41 Total PSA 1.75 Vitamin B12 521 25-OH Vitamin D Total 32.5 TSH 2.30 Total Testosterone 408 Ur Specific [place] 1.025 Urine Protein Negative Urine Glucose (UA) Negative Urine Blood Negative Urine Nitrite Negative Ur Leukocyte Esterase Trace H Absolute CD4 Count 460 L Laboratory Tests 11/17/24 12/13/24 15:22 15:52 Hep C Viral Load <15 NOT DETECTED Hep C Viral Load Log <1.18 NOT DETECTED HSV I IgG Ab 33.10 H HSV II IgG 19.80 H HIV-1 RNA copies/mL 89 H HIV-1 RNA logcopies/mL 1.95 H Coding Level of Care Code Est Pt Level 4 (41781) Complex EM visit Add On G2211 Diagnoses Atherosclerosis of ramona coronary artery of ramona heart without angina pectoris I25.10 Associated angina: without angina Coronary Disease-Associated Artery/Lesion type: ramona artery [place] vs. transplanted heart: ramona heart Mixed hyperlipidemia E78.2 Chronic bronchitis, unspecified chronic bronchitis type J42 COPD type: chronic bronchitis Chronic bronchitis type: unspecified Currently asymptomatic HIV infection, with history of HIV-related illness B20 HIV symptom status: currently asymptomatic, with history of HIV-related illness History of DVT of lower extremity Z86.718 Penile rash R21 Additional Codes PHQ-9 - 17463 - PHQ-9 Billing: Yes ([id number]) Time Spent (min) 38 Assessment & Plan Assessment & Plan (1) Coronary atherosclerosis: Code(s): I25.10 - Atherosclerotic heart disease of ramona coronary artery without angina pectoris Category: Medical Qualifiers: Associated angina: without angina Coronary Disease-Associated Artery/Lesion type: ram[place] artery [place] vs. transplanted heart: ramona heart Qualified Code(s): I25.10 - Atherosclerotic heart disease of ramona coronary artery without angina pectoris Plan: S/P myocardial infarction on 02/02/2021 Patient underwent coronary angiography and stenting of the circumflex, LAD and RCA at [facility] Continue Isosorbide Mononitrate ER 30 mg QD, Aspirin 81 mg QD and Metoprolol ER 25 mg QD Will refer him to cardiology here locally for continuing follow up and management as patient relocated here to [facility] last year (2) Mixed hyperlipidemia: Code(s): E78.2 - Mixed hyperlipidemia Category: Medical Plan: Results of his labs done last month reviewed and discussed with patient Reinforced low cholesterol diet Continue Atorvastatin 80 mg QD and Ezetimibe 10 mg QD Will have patient recheck his labs and fasting lipids in 4 months for follow up (3) COPD (chronic obstructive pulmonary disease): Code(s): J44.9 - Chronic obstructive pulmonary disease, unspecified Category: Medical Qualifiers: COPD type: chronic bronchitis Chronic bronchitis type: unspecified Qualified Code(s): J42 - Unspecified chronic bronchitis Plan: Controlled - continue Advair Diskus 250-50 mcg 1 inhalation BID (4) HIV (human immunodeficiency virus infection): Onset Date: Unknown Comment: He is doing well. Continue Biktarvy. Check CD4 count and viral load as well as syphilis,Hepatitis C testing per labs. See in six months and need to do rectal Pap then. Code(s): Z21 - Asymptomatic human immunodeficiency virus [HIV] infection status Category: Medical Qualifiers: HIV symptom status: currently asymptomatic, with history of HIV-related illness Qualified Code(s): B20 - Human immunodeficiency virus [HIV] disease Plan: (+) Hx of Kaposi's sarcoma Patient's most recent CD4 count was at 460 last month (was previously at 665 back on 09/01/2024) Continue Biktarvy 50-200-25 mg 1 tablet QD Follow up with nfectious disease (Dr. Rodrigues) for continuing management of his HIV disease (5) History of DVT of lower extremity: Code(s): Z86.718 - Personal history of other venous thrombosis and embolism Category: Medical Plan: Continue Apixaban 5 mg BID (6) Penile rash: Code(s): R21 - Rash and other nonspecific skin eruption Category: Medical Plan: Patient is advised that this is likely balanitis He was started previously on Clotrimazole 1% cream BID, which he states helped only temporarily Tests for syphilis, GC and Chlamydia done last month all came back negative Will refer him to urology for further evaluation and management - may need Bx for further evaluation Plan Follow up in 4 months Orders: Orders Complete Blood Count Auto Diff 4 Months D64.9 - Anemia, unspecified Lipid Panel 4 Months E78.00 - Pure hypercholesterolemia, unspecified Hemoglobin A1c 4 Months E11.9 - Type 2 diabetes mellitus without complications Microalbumin, Random (w Creat) 4 Months E11.9 - Type 2 diabetes mellitus without complications TSH reflex Free T4 4 Months E78.00 - Pure hypercholesterolemia, unspecified Vitamin D 25-OH Total 4 Months E55.9 - Vitamin D deficiency, unspecified Comprehensive [place]. Panel Fast 4 Months E78.00 - Pure hypercholesterolemia, unspecified UA CC w/rflx Micro + Cult 4 Months R30.0 - Dysuria Referrals Cardiology Referral B20 - Human immunodeficiency virus [HIV] disease, I25.10 - Atherosclerotic heart disease of ramona coronary artery without angina pectoris Urology Referral N48.5 - Ulcer of penis Medications: Changed From clotrimazole 1% 1 appl topical BID 2 weeks 30 grams 0RF To clotrimazole 1% 1 appl topical BID 45 grams 0RF Refilled atorvastatin 80 mg PO DAILY 90 tabs 1RF E78.2 - Mixed hyperlipidemia fluticasone propion-salmeterol 250-50 mcg/dose (Advair Diskus) 1 inh inhalation BID 60 ea 5RF J42 - Unspecified chronic bronchitis isosorbide mononitrate ER 30 mg PO DAILY 90 tabs 1RF I25.10 - Atherosclerotic heart disease of ramona coronary artery without angina pectoris metoprolol succinate ER 25 mg PO DAILY 90 tabs 1RF I25.10 - Atherosclerotic he art disease of ramona coronary artery without angina pectoris ezetimibe 10 mg PO DAILY 90 tabs 1RF E78.2 - Mixed hyperlipidemia
--- OUTSIDE RECORDS SUMMARY | 2025-01-17 09:05 | XMS_ITS | Encounter Summary ---
Author Organization [facility] Address [address] [place] [address] Care Team Providers Care Hide Grader Name Role Phone Philomena Mendez Primary Care Provider [phone] Reason for Visit * Reason Comments Office Visit: Converted Data Conversion Encounter Details Date Type Department Care Team (Late st Contact Info) Description 08/06/2022 Dental Interim Note [facility] [address] [address] Default, Provider MD Social History Tobacco Use Types Packs/Day Years [...] on filedocumented in this encounter Care Teams Hide Grader Relationship Specialty Start Date End Date Philomena Mendez [address] [place] [address] PCP - General ADAPTIVE PHYSICAL EDUCATION SPECIALIST Nurse Practitioner 06/04/23 documented as of this encounter
--- OUTSIDE RECORDS SUMMARY | 2025-01-17 09:05 | XMS_ITS | Clinical Summary ---
Author Organization [facility] Address [address] [place] [address] Care Team Providers Care Back Digger Operator Name Role Phone Philomena Mendez Primary Care Provider [phone] Source Comments PLEASE NOTE, if this patient [...] 80 mg tabletIndication s:Coronary artery disease involving [place] heart without angina pectoris, unspecified vessel or lesion type Take 1 Tablet by mouth once daily 90 Tablet 1 5 Active apixaban (ELIQUIS) 5 mg tab Take 1 Tablet by mouth 2 (two) times daily 90 Tablet 5 Active metoprolol succinate XL (TOPROL-XL) 25 mg 24 hr tabletIndication s:Coronary artery disease involving [place] heart without angina pectoris, unspecified vessel or [...] z-score -0.6 Coronary artery disease invo lving [place] heart without angina pectoris 09/21/2022 History of COPD 09/21/2022 History of heart attack 09/21/2022 Overview (09/23/2022): [place] x1 2020- stents x 3. Sees lumber puller Dr. Trey Chavez - sees three times a year Kaposi's sarcoma, unspecified ([facility]) 09/21/20 22 Chronic ulcer of left leg, l imited to breakdown of skin ([facility]) 09/21/2022 Tobacco abuse 09/21/2022 Adjustment disorder with mixed anxiety and depre ssed mood 08/15/2022 Asymptomatic HIV infection ([facility]) 02/24/2014 Overview (04/01/2023): Dx 1985 , vale [...] SQV/IDV, low level resistance to ATR/FPV Cachexia ([facility]) 06/04/2012 History of DVT (deep vein thrombosis) [...] PPSV23, PCV20 or PCV21) 05/18/2024 05/18/2019, 03/19/2016 [id number] ( season) 2024 09/23/2022, 03/25/2022, 08/27/2021, Additional [...] of heart attack Coronary artery disease involving [place] heart without angina pectoris, unspecified vessel or [...] EST) Hemoglobin A1c (Glycohgb) 6.7(H) <5.7 % [facility] Comment: HEMOGLOBIN A1c AND eAG REFERENCE RANGES ? A1c(%) ? DIABETES CATEGORY* ? <5.7 ? Normal (non-diabetic) ?5.7-6.4 ? Increased risk of diabetes ? =>6.5 ?Consistent with diabetes ? A1c(%) ? eAG(ESTIMATED AVERAGE PLASMA GLUCOSE)(mg/dL) ?6 ? 126 ?7 ? 154 ?8 ? 183 ?9 ? 212 ? 10 ? 240 ? 11 ? 269 ? 12 ? 298 ? *recommended ranges-[place] [employer](2010) NOTE: The amount of glycated [...] BLOOD DRAW Final Result Performing Organization Address City/[facility]/ZIP Co de Phone Number [facility] [address] [place] [address], * (ABNORMAL) ANAL (RECTAL) CYTOLOGY (03/24/2024 1:52 PM EDT) ANAL CYTOPATHOLOGY, THINPREP ASC-US(A) Normal [facility] Comment: DIAGNOSIS: ? Atypical squamous cells [...] LAB - NO BLOOD DRAW Final Result [facility] [address] [place] [address], [place] [phone] * HEPATITIS C ANTIBODY WITH REFLEX TO HCV, RNA, QUANTITATIVE, REAL-TIME PCR (REFL) (01/20/2023 3:58 PM EDT) HCV AB Non Reactive Non Reactive [facility] Blood Blood / Unknown 01/20/2023 3 :58 PM EDT 01/20/2023 Narrative [facility] - 01/21/2023 7:06 AM EDT Performed at: ??01 - [facility] [address] ??[id number] Knock Out Hand: Lou Aldana MD, Phone: ??[phone] Danyell Mitchell LAB - BLOOD DRAW Final Result [facility] * LIPID PANEL (09/23/2022 2:54 PM EST) Pathologist [facility] CHOLESTEROL, TOTAL 161 100 - 199 mg/dL [facility] TRIGLYCERIDES 85 0 - 149 mg/dL [facility] HDL CHOLESTEROL 48 >39 mg/dL [facility] VLDL CHOLESTEROL KECIA 16 5 - 40 mg/dL [facility] LDL CHOL CALC (NIH) 97 0 - 99 mg/dL [facility] Blood Blood / Unknown 09/23/2022 2 :54 PM EST 09/23/2022 Narrative [facility] - 09/24/2022 3:06 AM EST Performed at: ??01 - [facility] [address] ??[id number] Knock Out Hand: Lilli Caruso MD, Phone: ??[phone] Danyell Mitchell LAB - BLOOD DRAW Final Result [facility] from Last 3 Months or Most Recently Relevant to Health Maintenance Insurance [facility] Member Subscriber Plan / Payer (Ef fective 2016-Present) Name:Galen Dez Relation to Subscriber:Self Name:Galen Dez Payer ID:[id number] Group ID:Not on file Type:Managed Medicaid Address: [place] [address] [address] [place] [address] MEDICAID DENTAL [facility] Member Subscriber Plan / Payer (Ef fective 2016-Present) Name:Dez Aaron Relation to Subscriber:Self Name:Dez Aaron Payer ID:[id number] Group ID:Not on file Type:Medicaid Address: [address] [address] Care Teams Back Digger Operator Relationship Specialty Start Date End Date Philomena Mendez [address] [place] [address] PCP - General OFFICE SUPPORT ASSOCIATE Nurse Practitioner 06/04/23
== END 2025-01-17 09:30 | disposition home or self-care (01) ==
LOC: HO.HMCH 08:34
PROVIDERS: PCP Internal Medicine; Visit Provider Internal Medicine
DX: I25.10 Atherosclerotic heart disease of native coronary artery without angina pectoris (principal); E78.2 Mixed hyperlipidemia; J42 Unspecified chronic bronchitis; B20 Human immunodeficiency virus [HIV] disease; Z86.718 Personal history of other venous thrombosis and embolism; R21 Rash and other nonspecific skin eruption

== ENCOUNTER → 2025-01-17 08:34 | Outpatient (BNVA) | payer OTHER, SELFPAY | PROVIDERS: PCP Internal Medicine; Visit Provider Internal Medicine | DX: B20 Human immunodeficiency virus [HIV] disease (principal); I25.10 Atherosclerotic heart disease of native coronary artery without angina pectoris; E78.2 Mixed hyperlipidemia; J42 Unspecified chronic bronchitis; Z86.718 Personal history of other venous thrombosis and embolism; R21 Rash and other nonspecific skin eruption | CPT/HCPCS: 96127; 99212 ==

== ENCOUNTER 2025-03-14 14:41 | Outpatient (REF) | payer MEDICAID, SELFPAY ==
[2025-03-14 16:36] LABS: Urine Cytology See Pathology rpt
== END 2025-03-14 14:42 | disposition home or self-care (01) ==
LOC: HO.LAB 14:41
PROVIDERS: PCP Internal Medicine; Visit Provider Nurse Practitioner Family
DX: N48.5 Ulcer of penis (principal); R31.29 Other microscopic hematuria; B20 Human immunodeficiency virus [HIV] disease; C46.9 Kaposi's sarcoma, unspecified; F17.200 Nicotine dependence, unspecified, uncomplicated
CPT/HCPCS: 81003; 88112; 99212

== ENCOUNTER 2025-03-14 14:41 | Outpatient (AMB) | payer MEDICAID, SELFPAY ==
--- NOTE | 2025-03-14 14:44 | A.OFFVIS_ITS ---
Intake Visit Reasons: penile rash (balanitis) Intake Note: New Patient presents for initial visit for Balanitis Urology Medications: none - previously treated with clotrimazole cream Blood Thinner: none Machinery Cleaner Required: No Accompanied by: Self / Same As Patient Allergies No Known Allergies Allergy (Verified 03/14/25 15:28) Medication List - Last Reconciled 03/14/25 by MARIAMA Horta-NICKI ammonium lactate 12% appl topical apixaban (Eliquis) 5 mg PO BID atorvastatin 80 mg PO DAILY wemzboglm-fbciaxoc-cypcfot ala 50-200-25 mg (Biktarvy) 1 tab PO DAILY 90 days ezetimibe 10 mg PO DAILY fluticasone propion-salmeterol 250-50 mcg/dose (Advair Diskus) 1 inh inhalation BID isosorbide mononitrate ER 30 mg PO DAILY metformin 500 mg PO BID 90 days metoprolol succinate ER 25 mg PO DAILY multivitamin with folic acid 400 mcg (Tab-A-Landon) 1 tab PO DAILY 90 days valacyclovir (Valtrex) 1,000 mg PO TID 7 days HPI Comments Details: Dez is a very pleasant 64-year-old male patient of Dr. Nuñez. He has a past medical history of osteopenia, penile ulcer, DVT of lower extremity, cocaine abuse in remission, COPD, [place] 2020, mixed hyperlipidemia, HIV, and Kaposis sarcoma. He presents to the office today as a new patient for penile lesion. In discussion with the patient today he reports penile lesion has been present for approximately 1 year. He reports he was given, clomitrazole cream with minimal improvement at which time recommendations were made for urology referral for further assessment evaluation. In assessment of the patient today the penis is uncircumcised. Upon retraction of penile foreskin near penile meatus there is a 3-5 mm open area noted. There are otherwise no other lesions or open areas noted. There is no drainage and or foul order noted. We did discuss obtaining penile biopsy for further assessment evaluation. In office urinalysis results reviewed with the patient today 2+ microscopic hematuria. When asked he does report over a 40 year history of nicotine dependence however quit smoking 1 year ago and has switch to vaping. We did discussed at length potential causes of microscopic hematuria as well as further workup in risks and benefits of these interventions. He denies urinary urgency, urinary frequency, incontinence, nocturia, hematuria, dysuria, foul smelling urine, changes to urinary stream, flank pain, fever, and or chills. He is happy with his current voiding parameters. I discussed reasons for blood in the urine may include but are not limited to kidney stones, cancer in the urinary tract, BPH, kidney stone disease or inflammatory conditions of the urinary tract. I have discussed workup to include cystoscopy evaluation. All questions were answered. He otherwise offers no other issues or concerns at this time. In review of patient's chart it appears PSA 01/04 1.8 and total testosterone 408. PFSH Medical History Osteopenia Lung nodules Penile ulcer History 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 History of cocaine abuse COPD (chronic obstructive pulmonary disease) Myocardial infarction Coronary atherosclerosis Kaposi's sarcoma Mixed hyperlipidemia HIV (human immunodeficiency virus infection) (Unknown) Surgical History History of coronary artery stent placement History of mandibular surgery Family History Other Diabetes Social History Housing: Apartment Patient Tobacco Use Status: Former Tobacco user e-Cigarette/Vaping Use: Currently Using service: No Current occupational status: unemployed Current occupational exposures/hazards: No Cognitive needs: No Hearing needs: No Vision needs: No Review of Systems Const All systems reviewed & are unremarkable except as noted in HPI and below Physical Exam Const General: cooperative, comfortable, no acute distress, well developed, alert and awake Orientation/consciousness: patient oriented x3 Limitations: no limitations HEENT Head: Yes normal to inspection, Yes normocephalic and Yes atraumatic Ears: hearing grossly normal bilaterally Eyes General: appearance normal, both eyes and all related structures Neck Neck: Yes normal visual inspection and Yes trachea midline Chest Chest palpation & inspection: normal inspection of the chest Resp Effort & Inspection: normal respiratory effort and able to speak in complete sentences Cardio Rate: regular rate GI Inspection: Yes normal to inspection Other: As per HPI General: Yes no CVA tenderness Back/Spine/Pelvis Back: no CVA tenderness Skin General skin exam: no rashes or lesions noted Neuro General: patient oriented x3 Extrem General: Yes normal to inspection Psych Appearance: grossly normal and well kempt Mental Status: mental status grossly normal Speech and movement: Normal speech and movement present and Clear speech present Affect: normal affect Attitude: cooperative Thought process: Normal thought process present Thought content: Normal thought content present Insight: Fair insight present (Psych) Judgement: Fair judgement present (Psych) Results AMB Urinalysis, Automated UA Leukoctes 15 Ted/uL Last Edit by Andre Cannon on 03/14/25 15:02 UA Nitrite Negative Last Edit by Andre Cannon on 03/14/25 15:02 UA Urobilinogen 0.2 mg/dL Last Edit by Andre Cannon on 03/14/25 15:02 UA Protein 30 mg/dL Last Edit by Andre Cannon on 03/14/25 15:02 UA pH 6.0 Last Edit by Andre Cannon on 03/14/25 15:02 UA Blood 200 Fletcher/uL Last Edit by Andre Cannon on 03/14/25 15:02 UA Specific [place] 1.20 Last Edit by Andre Cannon on 03/14/25 15:02 UA Ketone Negative Last Edit by Andre Cannon on 03/14/25 15:02 UA Bilirubin 0 mg/dL Last Edit by Andre Cannon on 03/14/25 15:02 UA Glucose 0 mg/dL Last Edit by Andre Cannon on 03/14/25 15:02 Results Reviewed Results Reviewed: Laboratory Last Values Urine pH (Auto) 6.0 03/14/25 15:00 Specific [place] (Auto) 1.20 03/14/25 15:00 Urine Protein (Auto) 30 mg/dL 03/14/25 15:00 Glucose (UA)(Auto) 0 mg/dL 03/14/25 15:00 Urine Ketones (Auto) Negative 03/14/25 15:00 Urine Blood (Auto) 200 Fletcher/uL 03/14/25 15:00 Urine Nitrite (Auto) Negative 03/14/25 15:00 Urine Bilirubin (Auto) 0 mg/dL 03/14/25 15:00 Urine Urobilinogen (Auto) 0.2 mg/dL 03/14/25 15:00 Leukocyte Esterase (Auto) 15 Ted/uL 03/14/25 15:00 Assessment & Plan Assessment & Plan (1) Microscopic hematuria: Code(s): R31.29 - Other microscopic hematuria Category: Medical (2) Nicotine dependence: Code(s): F17.200 - Nicotine dependence, unspecified, uncomplicated Category: Medical (3) Penile ulcer: Comment: Check RPR. Gave some Valtrex and let us know if better. Further check with Urology if not better for malignancy. Code(s): N48.5 - Ulcer of penis Category: Medical Plan In office urinalysis results reviewed with the patient today; as noted above; will send for urine cytology. We discussed obtaining penile biopsy for further assessment evaluation of penile lesion. We also discussed potential causes of microscopic hematuria as well as further workup in risks and benefits of these interventions Recent PSA results reviewed with the patient today; as noted above. He currently denies any bothersome urinary issues. He reports be happy with current voiding parameters. We discussed the importance of limiting/quitting vaping for overall health and well-being. All questions were answered. Will proceed with penile biopsy. Orders: Orders Urine Cytology Today F17.200 - Nicotine dependence, unspecified, uncomplicated, R31.29 - Other microscopic hematuria AMB Urinalysis Automated Today Z13.9 - Encounter for screening, unspecified Patient Instructions: The patient had an opportunity to ask questions regarding the treatment plan. All questions were answered. Physical exam, labs, and imaging were discussed and reviewed in detail. As well as risks, benefits, and discussion of treatment choices. No major barriers to understanding were identified. The patient expressed understanding and agreement with the above treatment plan. The patient was made aware they should contact our office by phone for worsening of their current condition, the appearance of new symptoms, or with any questions or concerns. Compliance is encouraged with any medications and follow up testing that is ordered. It is a privilege to be allowed the opportunity to participate in? your urological care.? Again, if you have any questions or concerns If you have any questions or concerns please do not hesitate to contact me. The office is [phone]. This note is constructed using voice recognition software. While every effort has been made to ensure accuracy roofer applicator errors may have been included. Yours sincerely, MARIAMA Horta-NICKI Coding Level of Care Code New Pt Level 3 (10153) Diagnoses Microscopic hematuria R31.29 Nicotine dependence F17.200 Penile ulcer N48.5
--- OUTSIDE RECORDS SUMMARY | 2025-03-14 15:58 | XMS_ITS | Encounter Summary ---
Author Organization [facility] Address [address] [place] [address] Care Team Providers Care Sales Engineer Name Role Phone Philomena Mendez Primary Care Provider Reason for Visit * Reason Comments Office Visit: Converted Data Conversion Encounter Details Date Type Department Care Team (Late st Contact Info) Description 08/06/2022 Dental Interim Note [facility] [address] [address] Default, Provider [place] Social History Tobacco Use Types Packs/Day Years [...] on filedocumented in this encounter Care Teams Sales Engineer Relationship Specialty Start Date End Date Philomena Mendez [address] [place] [address] PCP - General COUNTERSINKER Nurse Practitioner 06/04/23 documented as of this encounter
== END 2025-03-14 15:24 | disposition home or self-care (01) ==
LOC: HO.HUSH 14:42
PROVIDERS: PCP Internal Medicine; Visit Provider Nurse Practitioner Family
DX: R31.29 Other microscopic hematuria (principal); F17.200 Nicotine dependence, unspecified, uncomplicated; N48.5 Ulcer of penis; Z13.9 Encounter for screening, unspecified
CPT/HCPCS: 99203

== ENCOUNTER 2025-03-24 16:42 | Outpatient (REF) | payer MEDICAID, SELFPAY ==
--- OUTSIDE RECORDS SUMMARY | 2025-03-24 18:20 | XMS_ITS | Encounter Summary ---
Author Organization [facility] Address [address] [place] [address] Care Team Providers Care Evp Of Products & Co Founder Name Role Phone Philomena Mendez Primary Care Provider [phone] Reason for Visit * Reason Comments Office Visit: Converted Data Conversion Encounter Details Date Type Department Care Team (Late st Contact Info) Description 08/06/2022 Dental Interim Note [facility] [address] [address] Default, Provider [place] Social History Tobacco Use Types Packs/Day Years [...] on filedocumented in this encounter Care Teams Evp Of Products & Co Founder Relationship Specialty Start Date End Date Philomena Mendez [address] [place] [address] PCP - General INVENTORY PLANNER Nurse Practitioner 06/04/23 documented as of this encounter
== END 2025-03-24 16:43 | disposition home or self-care (01) ==
LOC: HO.HHCLNP 16:42
PROVIDERS: Visit Provider Internal Medicine
DX: B20 Human immunodeficiency virus [HIV] disease (principal)
CPT/HCPCS: 88112

== ENCOUNTER 2025-03-25 10:37 | Outpatient (REF) | payer MEDICAID, SELFPAY ==
--- OUTSIDE RECORDS SUMMARY | 2025-03-25 11:40 | XMS_ITS | Encounter Summary ---
Author Organization [facility] Address [address] [place] [address] Care Team Providers Care Smoking Tobacco Packing Machine Hand Name Role Phone Philomena Mendez Primary Care Provider [phone] Reason for Visit * Reason Comments Office Visit: Converted Data Conversion Encounter Details Date Type Department Care Team (Late st Contact Info) Description 08/06/2022 Dental Interim Note [facility] [address] [address] Default, Provider [place] Social History Tobacco Use Types Packs/Day Years [...] on filedocumented in this encounter Care Teams Smoking Tobacco Packing Machine Hand Relationship Specialty Start Date End Date Philomena Mendez [address] [place] [address] PCP - General ELEVATOR STARTER Nurse Practitioner 06/04/23 documented as of this encounter
[2025-03-25 13:02] LABS: MANUAL DIFF FLAG NO
[2025-03-25 13:23] LABS: Basophils Percent Auto 0.5 % (0-2); Eosinophils Absolute Auto 0.1 X10*3/uL (0.0-0.4); Eosinophils Percent Auto 3.4 % (0-4); Hematocrit 39.9 % (42.0-52.0); Hemoglobin 13.4 g/dl (14.0-18.0); Imm Gran Abs Auto 0.01 X10*3/uL (0.00-0.03); Imm Gran Pct Auto 0.2 % (0.0-0.4); Lymphocytes Absolute Auto 1.5 X10*3/uL (1.2-4.9); Lymphocytes Percent Auto 36.7 % (20-40); Mean Corpuscular HGB Conc 33.6 g/dl (31.0-36.0); Mean Corpuscular Hemoglobin 30.2 pg (27.0-33.0); Mean Corpuscular Volume 89.9 fL (80.0-98.0); Mean Platelet Volume 10.4 fL (9.4-12.4); Monocytes Absolute Auto 0.4 X10*3/uL (0.1-1.2); Monocytes Percent Auto 8.5 % (2-11); Neutrophils Absolute Auto 2.1 x10*3/uL (2.0-8.3); Neutrophils Percent Auto 50.7 % (45-73); Platelet Count 229 X10*3/uL (160-400); Red Blood Count 4.44 X10*6/uL (4.60-5.80); Red Cell Distribution Width 13.3 % (11.0-16.0); White Blood Count 4.1 X10*3/uL (4.8-10.8)
[2025-03-25 13:25] LABS: Alanine Aminotransferase 24 U/L (0-40); Albumin Level 4.5 g/dL (3.5-5.0); Alkaline Phosphatase 74 U/L (39-117); Anion Gap 10 (12-20); Aspartate Amino Transferase 34 U/L (5-37); Bilirubin Total 0.5 mg/dL (0.0-1.0); Blood Urea Nitrogen 19 mg/dL (9-16); Calcium 9.9 mg/dL (8.4-10.2); Carbon Dioxide 28 mmol/L (22-29); Chloride 106 mmol/L (96-108); Cholesterol 125 mg/dL (<200); Estimated Glomerular Filt Rate > 60; Glucose Random 78 mg/dL (60-115); HDL Cholesterol 47 mg/dL (>40); LDL Cholesterol Calculated 68 mg/dL (<100); Potassium 4.3 mmol/L (3.3-5.1); Sodium 140 mmol/L (135-145); Total Protein 8.6 g/dL (6.5-8.0); Triglycerides 50 mg/dL (<150)
[2025-03-25 13:56] LABS: Prostate Specific Antigen Scr 2.46 ng/mL (<0.05-4.0)
[2025-03-25 14:07] LABS: Reflex LDLD? No
[2025-03-27 10:38] LABS: HIV RNA PCR Qn Copies 296 copies/mL (NOT DETECTED); HIV RNA PCR Qn Log Copies 2.47 (NOT DETECTED)
[2025-03-28 04:19] LABS: HBS Num1 15.61 mIU/mL (0-7.99); HBc Num1 2.72 S/CO (0.00-0.79); ~HepC Num1 0.17 S/CO (0.00-0.79); ~Hepatitis B Surface Antibody REACTIVE (Nonreactive); ~Hepatitis C Antibody Nonreactive (Nonreactive)
[2025-03-28 05:00] LABS: HBc Num2 2.85 S/CO; HBc Num3 2.82 S/CO; Hepatitis B Core Antibody Reactive (Nonreactive)
[2025-03-30 16:07] LABS: Absolute CD3 Count 920 cells/uL (840-3060); Absolute CD4 Count 382 cells/uL (490-1740); Absolute CD8 Count 623 cells/uL (180-1170); Absolute Lymphocytes 1355 cells/uL (850-3900); CD4 CD8 Ratio 0.61 (0.86-5.00); Percent CD3 Cells 68 % (57-85); Percent CD4 Cells 28 % (30-61); Percent CD8 Cells 46 % (12-42)
[2025-04-01 08:35] LABS: Hepatitis A Antibody IgG REACTIVE (Nonreactive); ~Hepatitis A Antibody IgG 8.86 S/CO (0.00-0.99)
== END 2025-03-25 10:38 | disposition home or self-care (01) ==
LOC: HO.HHCL 10:37
PROVIDERS: Visit Provider Internal Medicine
DX: B20 Human immunodeficiency virus [HIV] disease (principal); N40.0 Benign prostatic hyperplasia without lower urinary tract symptoms
CPT/HCPCS: 36415; 80053; 80061; 84153; 85025; 86359; 86360; 86704; 86705; 86706; 86708; 86803; 87536

== ENCOUNTER 2025-05-04 14:02 | Outpatient (AMB) | payer MEDICAID, SELFPAY ==
--- NOTE | 2025-05-04 14:08 | MHC.OFFVIS ---
Vital Signs 05/04/25 14:09 Height 5 ft 5 in Weight 152 lb 1.903 oz BMI 25.3 BP 106/60 Blood Pressure Location Lt brachial Position Sitting Pulse 99 Pulse Source Monitor Intake Visit Reasons: REPRODUCTION PRODUCTION MANAGER/Joaquin/Heart disease Allergies No Known Allergies Allergy (Verified 03/14/25 15:28) Medication List - Last Reconciled 05/04/25 by Veto Miguel MD ammonium lactate 12% appl topical apixaban (Eliquis) 5 mg PO BID atorvastatin 80 mg PO DAILY nxmamprqg-zzcnlvmj-zrxarec ala 50-200-25 mg (Biktarvy) 1 tab PO DAILY 90 days ezetimibe 10 mg PO DAILY fluticasone propion-salmeterol 250-50 mcg/dose (Advair Diskus) 1 inh inhalation BID isosorbide mononitrate ER 30 mg PO DAILY metformin 500 mg PO BID 90 days metoprolol succinate ER 25 mg PO DAILY multivitamin with folic acid 400 mcg (Tab-A-Landon) 1 tab PO DAILY 90 days valacyclovir (Valtrex) 1,000 mg PO TID 7 days HPI Comments Details: Dez is here for consultation regarding coronary artery disease. It seems that he used to live in [place] but has moved to the local area. History of coronary artery disease and in 2020, he had acute myocardial infarction. At that time, it appears that he had multivessel PCI to LAD, circumflex and RCA. Culprit was thought to be circumflex. Since that time, it seems that he has generally been stable. He has not had any exertional angina or any other form of chest pain. He does get some shortness of breath but it seems that he used to be a smoker and has COPD. More recently, he states he has just been vaping and not smoking cigarettes. Otherwise, has many comorbidities including diabetes, hypertension HIV, Kaposi sarcoma. He is here to establish cardiology care. [facility] Medical History Osteopenia Lung nodules Penile ulcer History 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 History of cocaine abuse COPD (chronic obstructive pulmonary disease) Myocardial infarction Coronary atherosclerosis Kaposi's sarcoma Mixed hyperlipidemia HIV (human immunodeficiency virus infection) (Unknown) Surgical History History of coronary artery stent placement History of mandibular surgery Family History (Updated 05/04/25 @ 14:19 by Amira Bryan) Mother No problems noted. Father No problems noted. Other Diabetes Social History (Updated 05/04/25 @ 14:18 by Amira Bryan) Housing: Apartment Alcohol intake: never Patient Tobacco Use Status: Former Tobacco user e-Cigarette/Vaping Use: Currently Using service: No Current occupational status: unemployed Current occupational exposures/hazards: No Cognitive needs: No Hearing needs: No Vision needs: No Review of Systems Const Denies weakness ENT Reports dizziness Card Denies chest pain, Denies chest pain with activity, Denies syncope, Denies rapid heart rate, Denies pedal edema, Denies edema, Denies leg edema, Denies lightheadedness, Denies palpitations, Reports dyspnea, Reports dyspnea on exertion and Denies orthopnea Resp Reports cough, Reports dyspnea and Reports dyspnea on exertion GI Denies hematochezia and Denies change in stool character Musc Denies abnormal gait, Denies muscle cramps, Denies muscle weakness, Denies numbness, Denies radiating pain into limb and Denies tingling Neuro Denies abnormal gait, Reports dizziness, Denies syncope, Denies numbness, Denies tingling and Denies weakness Endo Denies palpitations Physical Exam Vital Signs: Last Vital Signs Pulse 99 05/04/25 14:09 BP 106/60 05/04/25 14:09 BMI result Body Mass Index 25.3 Const General: comfortable and no acute distress Orientation/consciousness: patient oriented x3 HEENT Other: Unremarkable Head: Yes normal to inspection Neck Neck: Yes normal visual inspection Chest Chest palpation & inspection: normal inspection of the chest Resp Auscultation: clear to auscultation bilaterally Cardio Palpation: normal PMI Heart sounds: S1 normal heart sound present, S2 normal heart sound present, no gallops, no murmurs and no rubs GI Palpation (GI): Soft to palpation Back/Spine/Pelvis Other: unremarkable Skin General skin exam: no rashes or lesions noted Neuro General: patient oriented x3 Extrem General: Yes normal to inspection Psych Mental Status: mental status grossly normal Office Procedures EKG Details: EKG with underlying sinus rhythm at 99/Min; nonspecific ST-T changes; [place]. [id number]-[id number], Complete Assessment & Plan Assessment & Plan (1) Atherosclerotic cardiovascular disease: Code(s): I25.10 - Atherosclerotic heart disease of [place] coronary artery without angina pectoris Category: Medical (2) Ischemic cardiomyopathy: Code(s): I25.5 - Ischemic cardiomyopathy Category: Medical Plan Cardiac studies reviewed. Pharmacological stress test-10/2023-nontransmural infarct with emelina-infarct ischemia in the inferolateral wall. EF 64%. Cardiac catheterization-11/2023-WELFARE OFFICER of OM with collaterals; distal RCA severe disease; prior stents in LAD, circumflex, RCA were patent. No new lesions for intervention. [id number] 50%. Apical akinesis. Mild diastolic dysfunction. Overall, established coronary disease, multivessel PCI, hypertension, diabetes, dyslipidemia, HIV. We will repeat his echocardiogram for cardiac function assessment and wall motion abnormalities as baseline. With regard to medications, he is on rather Eliquis for DVT and not anymore antiplatelet drugs. He can continue that way. Continue beta-blockers, long-acting nitrates. Remains on statins and Zetia. Last LDL 68 mg/dL and triglycerides 50 mg/dL. We will see him in about 3 months' time with the echocardiogram. Orders: Orders CA echo transthoracic complete Today I25.5 - Ischemic cardiomyopathy Coding Level of Care Code New Pt Level 4 (15686) Complex EM visit Add On G2211 Diagnoses Atherosclerotic cardiovascular disease I25.10 Ischemic cardiomyopathy I25.5 CPT Codes EKG - CPT: 55245-Zaycujbszntjrleeu, Complete ([id number])
[2025-05-04 14:09] VITALS: BP 106/60; PULSE 99; BMI 25.3
--- OUTSIDE RECORDS SUMMARY | 2025-05-04 14:47 | XMS_ITS | Encounter Summary ---
Author Organization [facility] Address [address] [place] [address] Care Team Providers Care Dough Mixer Name Role Phone Philomena Mendez Primary Care Provider Reason for Visit * Reason Comments Office Visit: Converted Data Conversion Encounter Details Date Type Department Care Team (Late st Contact Info) Description 08/06/2022 Dental Interim Note [facility] [address] [address] Default, Provider [place] Social History Tobacco Use Types Packs/Day Years [...] on filedocumented in this encounter Care Teams Dough Mixer Relationship Specialty Start Date End Date Philomena Mendez [address] [place] [address] PCP - General VP STRATEGY Nurse Practitioner 06/04/23 documented as of this encounter
== END 2025-05-04 14:40 | disposition home or self-care (01) ==
LOC: HO.HCS 14:03
PROVIDERS: Visit Provider Internal Medicine
DX: I25.10 Atherosclerotic heart disease of native coronary artery without angina pectoris (principal); I25.5 Ischemic cardiomyopathy
CPT/HCPCS: 93010; 99204

== ENCOUNTER → 2025-05-04 14:02 | Outpatient (BNVA) | payer MEDICAID, SELFPAY | PROVIDERS: Visit Provider Internal Medicine | DX: I25.10 Atherosclerotic heart disease of native coronary artery without angina pectoris (principal); I25.5 Ischemic cardiomyopathy; Z79.01 Long term (current) use of anticoagulants; Z79.84 Long term (current) use of oral hypoglycemic drugs; Z79.899 Other long term (current) drug therapy; R94.31 Abnormal electrocardiogram [ECG] [EKG] | CPT/HCPCS: 93005; 99202 ==

== ENCOUNTER 2025-05-19 16:54 | Outpatient (REF) | payer MEDICAID, SELFPAY | END 2025-05-19 16:55 | disposition home or self-care (01) | LOC: HO.HHCLNP 16:54 | PROVIDERS: Visit Provider Family Medicine | DX: R31.9 Hematuria, unspecified (principal) | CPT/HCPCS: 87086 ==

== ENCOUNTER 2025-05-24 08:18 | Outpatient (REF) | payer MEDICAID, SELFPAY ==
--- OUTSIDE RECORDS SUMMARY | 2025-05-24 08:36 | XMS_ITS | Encounter Summary ---
Author Organization [facility] Address [address] [place] [address] Care Team Providers Care It Infrastructure Architect Name Role Phone Philomena Mendez Primary Care Provider [phone] Reason for Visit * Reason Comments Office Visit: Converted Data Conversion Encounter Details Date Type Department Care Team (Late st Contact Info) Description 08/06/2022 Dental Interim Note [facility] [address] [address] Default, Provider [place] Social History Tobacco Use Types Packs/Day Years [...] on filedocumented in this encounter Care Teams It Infrastructure Architect Relationship Specialty Start Date End Date Philomena Mendez [address] [place] [address] PCP - General RESIDENTIAL PROPERTY TAX APPRAISER Nurse Practitioner 06/04/23 documented as of this encounter
[2025-05-24 11:25] LABS: MANUAL DIFF FLAG NO
[2025-05-24 11:31] LABS: Hematocrit 42.6 % (42.0-52.0); Hemoglobin 13.8 g/dl (14.0-18.0); Imm Gran Abs Auto 0.01 X10*3/uL (0.00-0.03); Imm Gran Pct Auto 0.2 % (0.0-0.4); Lymphocytes Absolute Auto 1.9 X10*3/uL (1.2-4.9); Mean Corpuscular HGB Conc 32.4 g/dl (31.0-36.0); Mean Corpuscular Hemoglobin 29.6 pg (27.0-33.0); Mean Corpuscular Volume 91.2 fL (80.0-98.0); NRBC Abs Auto 0.000 X10*3/uL (0.0-0.012); NRBC Pct Auto 0.0 /100WBC (0.0-0.2); Platelet Count 260 X10*3/uL (160-400); Red Blood Count 4.67 X10*6/uL (4.60-5.80); White Blood Count 5.1 X10*3/uL (4.8-10.8)
[2025-05-24 11:32] LABS: Hematocrit 42.5 % (42.0-52.0); Hemoglobin 13.6 g/dl (14.0-18.0); Imm Gran Abs Auto 0.02 X10*3/uL (0.00-0.03); Imm Gran Pct Auto 0.4 % (0.0-0.4); Lymphocytes Absolute Auto 1.8 X10*3/uL (1.2-4.9); Mean Corpuscular HGB Conc 32.0 g/dl (31.0-36.0); Mean Corpuscular Hemoglobin 29.4 pg (27.0-33.0); Mean Corpuscular Volume 91.8 fL (80.0-98.0); NRBC Abs Auto 0.000 X10*3/uL (0.0-0.012); NRBC Pct Auto 0.0 /100WBC (0.0-0.2); Platelet Count 257 X10*3/uL (160-400); Red Blood Count 4.63 X10*6/uL (4.60-5.80); White Blood Count 5.0 X10*3/uL (4.8-10.8)
[2025-05-24 11:40] LABS: Appearance Urine Turbid; Glucose Urine UA Negative (Negative); PH 6.0 (5.0-9.0); Specific Gravity - Urine 1.020 (1.005-1.025); UMIC TRIGGER UACC YES
[2025-05-24 11:47] LABS: UACC Culture Trigger YES
[2025-05-24 11:55] LABS: Hemoglobin A1C 154.5301 umol/L; Total Hemoglobin (HGBA1C) 3628.9882 umol/L
[2025-05-24 12:35] LABS: Alanine Aminotransferase 34 U/L (0-40); Albumin Level 4.3 g/dL (3.5-5.0); Alkaline Phosphatase 74 U/L (39-117); Anion Gap 12 (12-20); Aspartate Amino Transferase 31 U/L (5-37); Blood Urea Nitrogen 13 mg/dL (9-16); Calcium 9.6 mg/dL (8.4-10.2); Carbon Dioxide 30 mmol/L (22-29); Chloride 104 mmol/L (96-108); Cholesterol 146 mg/dL (<200); Estimated Glomerular Filt Rate > 60; HDL Cholesterol 50 mg/dL (>40); Potassium 4.0 mmol/L (3.3-5.1); Sodium 142 mmol/L (135-145); Total Protein 8.7 g/dL (6.5-8.0); Triglycerides 84 mg/dL (<150)
[2025-05-24 12:53] LABS: PSA,Total (Free>4and<10) 3.39 ng/mL (0.00-4.00)
[2025-05-24 13:02] LABS: Microalbum/Creatinine Ratio Ur 399.0 ug/mg cr (<30)
[2025-05-25 04:13] LABS: HBsAGNum1 0.40 S/CO (0.00-0.99); Hepatitis B Surface Antigen Negative (Negative)
== END 2025-05-24 08:19 | disposition home or self-care (01) ==
LOC: HO.HHCL 08:18
PROVIDERS: Internal Medicine; PCP Internal Medicine Geriatric Medicine; Referring Provider Family Medicine; Visit Provider Internal Medicine
DX: D64.9 Anemia, unspecified (principal); E11.9 Type 2 diabetes mellitus without complications; E78.00 Pure hypercholesterolemia, unspecified; E55.9 Vitamin D deficiency, unspecified; B20 Human immunodeficiency virus [HIV] disease; R31.0 Gross hematuria; R30.0 Dysuria
CPT/HCPCS: 36415; 80053; 80061; 81001; 82043; 82306; 82570; 83036; 84153; 84443; 85025; 87086; 87340

== ENCOUNTER → 2025-06-03 13:08 | Outpatient (REF) | payer MEDICAID, SELFPAY ==
--- OUTSIDE RECORDS SUMMARY | 2025-06-03 13:10 | XMS_ITS | Encounter Summary ---
Author Organization [facility] Address [address] [place] [address] Care Team Providers Care Rehabilitation Director Name Role Phone Philomena Mendez Primary Care Provider [phone] Reason for Visit * Reason Comments Office Visit: Converted Data Conversion Encounter Details Date Type Department Care Team (Late st Contact Info) Description 08/06/2022 Dental Interim Note [facility] [address] [address] Default, Provider [place] Social History Tobacco Use Types Packs/Day Years [...] on filedocumented in this encounter Care Teams Rehabilitation Director Relationship Specialty Start Date End Date Philomena Mendez [address] [place] [address] PCP - General CORN CUTTER OPERATOR Nurse Practitioner 06/04/23 documented as of this encounter
--- NOTE | 2025-06-03 13:11 | CA_ITS ---
Transthoracic Echocardiogram Patient (Last, First, Middle): Dez Aaron, Gender: M Date of : 1960 Age: 64 Procedure Date: 06/03/2025 Procedure Type: Transthoracic Echocardiogram Location: OP Height: 165.1 cm Weight: 68.95 kg BSA: 1.76 m2 Heart Rate: 85 bpm BP: 106 / 60 mmHg Home Health Lvn: BISI Referring MD: Veto Miguel MD Roll Weigher: Alo Vick MD Symptoms: I25.5 - Ischemic cardiomyopathy Study Quality: Adequate w contrast ECG Rhythm: Sinus Conclusions: - 1. Normal LV ejection fraction 55-60% with grade 1 diastolic dysfunction with regional wall motion abnormality suggestive of underlying coronary artery disease 2. Normal cardiac valvular Dopplers with mild calcific aortic valve changes noted 3. No gross pericardial effusion Findings Procedure Information Contrast agent, definity, is being given per protocol without apparent complications. Left Ventricle Normal left ventricular size, thickness, and systolic function. The visually estimated ejection fraction is between 55-60%. Spectral Doppler is indicative of an impaired relaxation filling pattern. E/E prime ratio is <8, consistent with normal filling pressures. Evidence suggests grade I (mild) diastolic dysfunction. Wall Motion Rest Echo Findings The basal inferior, apical lateral, basal inferoseptal, mid anterolateral, and basal inferolateral segments are hypokinetic. All other scored wall segments showed normal motion. Right Ventricle Normal right ventricular cavity size and systolic function. Atria Both atria are normal in size. There is no evidence of interatrial shunt. Aortic Valve There is mild calcification of the aortic valve. There is mild thickening of the aortic valve. There is no aortic valve stenosis. There is no aortic valve regurgitation. Mitral Valve There is mild anterior and posterior mitral leaflet thickening. There is trace mitral valve regurgitation. There is no mitral valve stenosis. Pulmonic Valve The pulmonic valve is likely normal. Tricuspid Valve Normal tricuspid valve structure. Tricuspid regurgitation envelope is inadequate for calculation of right ventricular systolic pressure. Normal right atrial pressure. Great Vessels The pulmonary artery was not well visualized. There is no dilatation of the ascending aorta measuring 3.50 cm. Venous The inferior vena cava is normal in size and collapses greater than 50% with inspiration. Pericardium/Pleural There is no evidence of pericardial effusion. Prior Study Comparison No prior study available for comparison. Measurements 2D Linear Measurements IVSd: 0.68 0.6-0.9/0.6-1.0 cm LVIDd: 4.66 3.9-5.3/4.2-5.9 cm LVIDd Index: 2.65 2.4-3.2/2.2-3.1 cm/m2 LVIDs: 3.29 2.0-3.6 cm LVPWd: 0.55 0.7-1.1 cm LA Diam: 3.30 2.7-3.8/3.0-4.0 cm LAIDs Index: 1.88 1.5-2.3 cm/m2 LV Mass: 106.29 67-162/88-224 g LV Mass Index: 60.39 43-95/49-115 g/m2 LVOT Diam: 2.20 3.0+(-)1.3 cm 2D Systolic Function EF 4C: 54.30 >55% EF 2C: 62.50 >55% EF BiP: 59.40 >55% Mitral Valve MV Pk E: 0.60 MV PK A: 0.99 MV Decel Time: 198.00 E/A: 0.60 E'Lateral: 10.70 E'Medial: 7.94 E/E' Med: 7.60 E/E' Lat: 5.60 PHT: 58.00 MVA PHT: 3.79 Decel Marathon: 3.05 Aortic Valve AoV Pk Moise: 1.34 AoV Pk Grad: 7.00 TIFFANY: 2.54 LVOT LVOT Pk Moise: 0.92 LVOT Mn Moise: 0.60 LVOT VTI: 0.16 LVOT Pk Grad: 3.00 LVOT Mn Grad: 2.00 LVOT Diam: 2.20 LVOT Area: 3.80 Diastolic Function MV Pk E: 0.60 MV Pk A: 0.99 E/A: 0.60 E'Medial: 7.94 E/E' Med: 7.60 E' Laterial: 10.70 E/E' Lat: 5.60 Right Ventricle TAPSE (mm): 19.50 TVS' Moise: 13.40 Tricuspid Valve RA Press: 3.00 Great Vessels Aorta Sinus of Valsalva: 3.00 2.0-3.5 cm Ao Asc: 3.50 2.1-3.4 cm Pulmonary Veins Pulm Vein S/D 1.10 Pulmonary Valve PV Pk Moise: 1.02 Peak PV Grad: 4.00 Updated in Other Vendor System with Status of Final Alo Vick MD electronically signed on 06/04/2025 11:30:35 AM with status of Final
== END ==
LOC: HO.CARD 13:08
PROVIDERS: PCP Internal Medicine Geriatric Medicine; Visit Provider Internal Medicine
DX: I25.5 Ischemic cardiomyopathy (principal)
CPT/HCPCS: 93306; Q9957

== ENCOUNTER → 2025-06-03 13:11 | Outpatient (BNV) | payer MEDICAID, SELFPAY | PROVIDERS: PCP Internal Medicine Geriatric Medicine; Visit Provider Internal Medicine Cardiovascular Disease | DX: I25.5 Ischemic cardiomyopathy (principal); I35.8 Other nonrheumatic aortic valve disorders | CPT/HCPCS: 93306 ==

== ENCOUNTER 2025-06-09 09:05 | Outpatient (REF) | payer MEDICAID, SELFPAY ==
[2025-06-09 09:22] LABS: MANUAL DIFF FLAG NO
[2025-06-09 09:51] LABS: Hematocrit 42.0 % (42.0-52.0); Hemoglobin 13.5 g/dl (14.0-18.0); Imm Gran Abs Auto 0.01 X10*3/uL (0.00-0.03); Imm Gran Pct Auto 0.2 % (0.0-0.4); Lymphocytes Absolute Auto 2.0 X10*3/uL (1.2-4.9); Mean Corpuscular HGB Conc 32.1 g/dl (31.0-36.0); Mean Corpuscular Hemoglobin 29.3 pg (27.0-33.0); Mean Corpuscular Volume 91.1 fL (80.0-98.0); NRBC Abs Auto 0.000 X10*3/uL (0.0-0.012); NRBC Pct Auto 0.0 /100WBC (0.0-0.2); Platelet Count 212 X10*3/uL (160-400); Red Blood Count 4.61 X10*6/uL (4.60-5.80); White Blood Count 4.9 X10*3/uL (4.8-10.8)
--- OUTSIDE RECORDS SUMMARY | 2025-06-09 10:03 | XMS_ITS | Clinical Summary ---
Author Organization [facility] Address [address] [place] [address] Care Team Providers Care Flight Test Supervisor Name Role Phone Philomena Mendez Primary Care Provider [phone] Source Comments PLEASE NOTE, if this patient [...] BIKTARVY 50-200-25 mg tabIndications:A symptomatic HIV infection ([facility]) Take 1 Tablet by mouth daily. VACATION REFILL 90 Tablet 1 5 Active albuterol HFA (VENTOLIN HFA) 90 mcg/actuation inhalerIndicatio ns:Chronic obstructive pulmonary disease, unspecified COPD type ([facility]) Inhale 1-2 Puffs into the lungs every 6 (six) hours as needed for shortness of breath for up to 30 days 18 g 2 5 Active fluticasone propion-salmeter oL (ADVAIR DISKUS) 250-50 mcg/dose diskus inhalerIndicatio ns:Chronic obstructive pulmonary disease, unspecified COPD type ([facility]) Inhale 1 Puff into the lungs 2 (two) times daily 120 Each 3 5 Active atorvastatin (LIPITOR) 80 mg tabletIndication s:Coronary artery disease involving sleetmute heart without angina pectoris, unspecified vessel or lesion type Take 1 Tablet by mouth once daily 90 Tablet 1 5 Active apixaban (ELIQUIS) 5 mg tab Take 1 Tablet by mouth 2 (two) times daily 90 Tablet 5 Active metoprolol succinate XL (TOPROL-XL) 25 mg 24 hr tabletIndication s:Coronary artery disease involving sleetmute heart without angina pectoris, unspecified vessel or lesion type Take 1 Tablet by mouth daily 90 Tablet 1 5 Active ezetimibe (ZETIA) 10 mg tablet Take 1 Tablet by mouth once daily 90 Tablet 1 5 Active TAB-A-RIC 400 mcg tab Take 1 Tablet by mouth daily. Separate from Biktarvy by 6 hours 90 Tablet 3 5 Active ammonium lactate (AMLACTIN) 12 % creamIndications :Chronic ulcer of left leg, limited to breakdown of skin (CMS & HHS-HCC) APPLY TOPICALLY DAILY NEEDED FOR DRY SKIN 140 g 5 Active Active Problems Problem Noted Date [...] z-score -0.6 Coronary artery disease invo lving sleetmute heart without angina pectoris 09/21/2022 History of COPD 09/21/2022 History of heart attack 09/21/2022 Overview (09/23/2022): DC x1 2020- stents x 3. Sees clinical program manager Dr. Trey Chavez - sees three times a year Kaposi's sarcoma, unspecified ([facility]) Chronic ulcer of left leg, l imited to breakdown of skin ([facility]) 09/21/2022 Tobacco abuse 09/21/2022 Adjustment disorder with mixed anxiety and depre ssed mood 08/15/2022 Asymptomatic HIV infection ([facility]) 02/24 Overview (04/01/2023): Dx 1985 , vale 300 [...] SQV/IDV, low level resistance to ATR/FPV Cachexia ([facility]) 06/04/2012 History of DVT (deep [...] CONJUGATE PCV 13 03/19/2016 PNEUMOCOCCAL POLYSACCHARIDE PPV23 (Pneumovax 23) 05/18/2019 Smallpox Mpox (JYNNEOS) Vaccine 07/03/2022,05/31 TDAP [...] 71 09/01/2024 11:26 AM EST Temperature 36.8 C (98.2 F) 09/01/2024 11:26 AM EST Respiratory Rate 16 09/01/2024 11:26 AM EST [...] 1960 Imm-MMR (1 of 2 - Risk 2-dose series) 1978 Imm-Hepatitis A (1 of 2 - Risk 2-dose series) 1979 CT Colonography 2005 Colonoscopy 2005 Colorectal Cancer Screening 2005 FIT/gFOBT 2005 Fecal DNA 2005 Flexible Sigmoidoscopy 2005 Imm-Meningococcal (2 - Risk 2-dose series) 07/13/2019 05/18/2019 Imm-Hepatitis B (1 of 3 - Risk 3-dose series) 2020 Lipid Screening 09/23/2023 09/23/2022, 08/0 01/2022, 03/25/2022, Additional history exists Imm-Pneumococcal 50+ (3 of 3 - PCV20 or PCV21) 05/18/2024 05/18/2019, 03/19/2016 [id number] ( season) 2024 09/23/2022, 03/25/2022, 08/27/2021, Additional history exists Alcohol and Drug Screen 10/13/2024 09/01/2024, 09/01 Depression Annual Screen 10/13/2024 09/23/2022 Anal Cancer Screening 03/24/2025 Anal Pap 03/24/2025 03/24/2024, 08/13, 06/07/2020, Additional history exists Imm-Influenza (#1) 2025 07/07/2024, 1 10/21/2022, 08/27/2021, Additional history exists Diabetes Screening 09/01/2025 09/01/2024, 0 04/06/2024, 03/24/2024, Additional history exists Hypertension Screening (#1) 09/01/2025 Imm-DTaP/Tdap/Td (2 - Td or Tdap) 11/08/2029 11/08/2019 Imm-Zoster, Recombinant Discontinued 05/21/2022 Imm-Mpox (formerly Monkeypox) Completed 07/03/2022, 05/31/2022 Hepatitis C Screening Completed 01/20/2023 , 09/23/2022, 08/27/2021, Additional history exists HRA Discontinued 05/18/2024 Imm-HIB Aged Out No longer eligi ble based on patient's age to complete this topic Procedures Procedure Name Priority Date/Time Associated Diagnosis Comments HEMOGLOBIN GLYCOSYLATED A1C Routine 09/01/2024 12:14 PM EST Asymptomatic HIV infection (HCC-CMS) Encounter for long-term (current) use of medications ANOSCOPY DX W/HRA &CHEM AGNTS ENHANCEMENT W/BX Routine 05/18/2024 1:30 PM EDT Pap smear of anus with ASCUS ANAL (RECTAL) CYTOLOGY Routine 03/24/2024 1:52 PM EDT Asymptomatic HIV infection (HCC-CMS) History of heart attack Coronary artery disease involving sleetmute heart without angina pectoris, unspecified vessel or [...] Relevant to Health Maintenance Results * (ABNORMAL) > Hemoglobin A1C (HgbA1C) (B 0102-4) (09/01/2024 12:14 PM EST) Hemoglobin A1c (Glycohgb) 6.7(H) <5.7 % [facility] Comment: HEMOGLOBIN A1c AND eAG REFERENCE RANGES A1c(%) DIABETES CATEGORY* <5.7 Normal (non-diabetic) 5.7-6.4 Increased risk of diabetes =>6.5 Consistent with diabetes A1c(%) eAG(ESTIMATED AVERAGE PLASMA GLUCOSE)(mg/dL) 6 126 7 154 8 183 9 212 10 240 11 269 12 298 *recommended ranges-[employer](2010) NOTE: The amount of glycated hemoglobin as measured by the HbA1c test may be overestimated in Americans and should not be used as the sole parameter of glycemic burden. Similarly, hemolysis, genetic hemoglobin variants and chemically modified hemoglobin derivatives (as seen in renal failure, smoking, aspirin use) may also affect glycated hemoglobin levels. Blood Blood / Unknown 09/01/2024 1 2:14 PM EST 09/01/2024 9:14 PM EST Philomena Mendez LAB - BLOOD DRAW Final Result Performing Organization Address [facility] Co de Phone Number [facility] [place] [address], * (ABNORMAL) > Anal cytology (anal pap) (B 6626-6) (03/24/2024 1:52 PM EDT) ANAL CYTOPATHOLOGY, THINPREP ASC-US(A) Normal [facility] Comment: DIAGNOSIS: Atypical squamous cells of undetermined significance (ASC-US) ADEQUACY: Satisfactory for evaluation / No transformation zone component identified. SPECIMEN SOURCE: ANAL CYTOPATHOLOGY, THINPREP, ANAL CLINICAL INFORMATION: Provided Diagnosis Codes: Z21,I25.2,I25.10,Z12.12,Z79.899 ELECTRONICALLY SIGNED BY: Screened By: ROSANNA Whitney (ASCP) Pathologist Review By: Amira Davila M.D. Case Electronically Signed 03/26/2024 RECTAL SWAB Specimen from rectum / Unknown 03/24/2024 1:52 PM EDT 03/24/2024 10:49 PM EDT Philomena Mendez LAB - PATHOLOGY AND CYTOLOGY AMB ULATORY Final Result Performing Organization Address [facility] Co de Phone Number [employer] [address] [place] [address], * HEP C ANTIBODY W/REFLEX TO HCV RNA QUANT PCR (01/20/2023 3:58 PM EDT) HCV AB Non Reactive Non Reactive [facility] Blood Blood / Unknown 01/20/2023 3 :58 PM EDT 01/20/2023 Narrative [facility] - 01/21/2023 7:06 AM EDT Performed at: - [facility] [address] [id number] Sand Technician: Lou Aldana MD, Phone: [phone] Danyell Mitchell LAB - BLOOD DRAW Final Result [facility] * LIPID PANEL (0009-1) (09/23/2022 2:54 PM EST) Pathologist [facility] CHOLESTEROL, TOTAL 161 100 - 199 mg/dL [facility] TRIGLYCERIDES 85 0 - 149 mg/dL [facility] HDL CHOLESTEROL 48 >39 mg/dL [facility] VLDL CHOLESTEROL KECIA 16 5 - 40 mg/dL [facility] LDL CHOL CALC (NIH) 97 0 - 99 mg/dL [facility] Blood Blood / Unknown 09/23/2022 2 :54 PM EST 09/23/2022 Narrative [facility] - 09/24/2022 3:06 AM EST Performed at: - [facility] [address] [id number] Sand Technician: Lilli Caruso MD, Phone: [phone] Danyell Mitchell LAB - BLOOD DRAW Final Result [facility] from Last 3 Months or Most Recently Relevant to Health Maintenance Insurance [facility] Member Subscriber Plan / Payer (Ef fective 2016-Present) Name:Dez Aaron Relation to Subscriber:Self Name:Dez Aaron Payer ID:[id number] Group ID:Not on file Type:Managed Medicaid Address: [address] [place] [address] [facility] MEDICAID DENTAL , [facility] [address] [place] [address] [facility] Member Subscriber Plan / Payer (Ef fective 2016-Present) Name:Dez Aaron Relation to Subscriber:Self Name:Dez Aaron Payer ID:[id number] Group ID:Not on file Type:Medicaid Address: [address] [place] [address] Care Teams Flight Test Supervisor Relationship Specialty Start Date End Date Philomena Mendez [address] [place] [address] PCP - General [employer] Nurse Practitioner 06/04/23
--- OUTSIDE RECORDS SUMMARY | 2025-06-09 10:03 | XMS_ITS | Encounter Summary ---
Author Organization [facility] Address [address] [place] [address] Care Team Providers Care Housing Coordinator Name Role Phone Philomena Mendez Primary Care Provider [phone] Reason for Visit * Reason Comments Office Visit: Converted Data Conversion Encounter Details Date Type Department Care Team (Late st Contact Info) Description 08/06/2022 Dental Interim Note [facility] [address] [address] Default, Provider [place] Social History Tobacco Use Types Packs/Day Years [...] on filedocumented in this encounter Care Teams Housing Coordinator Relationship Specialty Start Date End Date Philomena Mendez [address] [place] [address] PCP - General [employer] Nurse Practitioner 06/04/23 documented as of this encounter
[2025-06-09 10:27] LABS: Alanine Aminotransferase 20 U/L (0-40); Albumin Level 4.2 g/dL (3.5-5.0); Alkaline Phosphatase 71 U/L (39-117); Anion Gap 10 (12-20); Aspartate Amino Transferase 18 U/L (5-37); Blood Urea Nitrogen 21 mg/dL (9-16); Calcium 9.8 mg/dL (8.4-10.2); Carbon Dioxide 29 mmol/L (22-29); Chloride 105 mmol/L (96-108); Estimated Glomerular Filt Rate > 60; Potassium 4.0 mmol/L (3.3-5.1); Sodium 140 mmol/L (135-145); Total Protein 8.6 g/dL (6.5-8.0)
[2025-06-09 10:30] LABS: Appearance Urine Clear; Glucose Urine UA Negative (Negative); PH 6.0 (5.0-9.0); Specific Gravity - Urine 1.025 (1.005-1.025); UMIC TRIGGER UACC YES
[2025-06-09 10:33] LABS: UACC Culture Trigger YES
[2025-06-09 10:59] LABS: Microalbum/Creatinine Ratio Ur 73.4 ug/mg cr (<30)
[2025-06-10 20:43] LABS: HIV RNA PCR Qn Copies <20 DETECTED copies/mL (NOT DETECTED); HIV RNA PCR Qn Log Copies <1.30 DETECTED (NOT DETECTED)
[2025-06-12 12:12] LABS: TS Negative Control Passed; TS Panel A 0; TS Panel B 1; TS Positive Control Passed; TSpotTB Negative (Negative)
[2025-06-15 16:12] LABS: Absolute CD3 Count 1173 cells/uL (840-3060); Absolute CD8 Count 829 cells/uL (180-1170); Percent CD3 Cells 71 % (57-85); Percent CD8 Cells 51 % (12-42)
== END 2025-06-09 09:06 | disposition home or self-care (01) ==
LOC: HO.LAB 09:05
PROVIDERS: Family Medicine; Internal Medicine; PCP Internal Medicine Geriatric Medicine; Visit Provider Internal Medicine
DX: Z11.1 Encounter for screening for respiratory tuberculosis (principal); Z11.3 Encounter for screening for infections with a predominantly sexual mode of transmission; B20 Human immunodeficiency virus [HIV] disease; R31.0 Gross hematuria
CPT/HCPCS: 36415; 80053; 81001; 81003; 82043; 82570; 85025; 86359; 86360; 86481; 86592; 87086; 87536

== ENCOUNTER 2025-06-22 14:07 | Outpatient (AMB) | payer MEDICAID, SELFPAY ==
--- NOTE | 2025-06-22 14:09 | A.OFFVIS_ITS ---
Vital Signs 06/22/25 14:12 Height 5 ft 5 in Weight 160 lb BMI 26.6 Pulse 100 Pulse Source Pulse Oximeter Pulse Oximetry (%) 97 Oxygen Delivery Method Room Air Intake Visit Reasons: 6 month f/u Allergies No Known Allergies Allergy (Verified 06/22/25 14:10) HPI Comments Details: The patient is a 64-year-old male presenting with a 6-month follow-up for HIV care. In May, his HIV viral load was undetectable with a stable CD4 count of 436 cells/?L. Laboratory assessments revealed normal hematology and liver function, alongside a glucose level indicative of prediabetes, for which lifestyle modifications are being undertaken. He currently manages hypercholesterolemia with atorvastatin and ezetimibe. Recent lipid profile included a total cholesterol of 146 mg/dL, an LDL of 80 mg/dL, and an HDL of 50 mg/dL. PSA screening showed a level of 3.39 ng/mL. Urological evaluation for a persistent penile ulcer resulted in an initial prescription of Valtrex, but subsequent management requires a biopsy after inconclusive outcomes. Vitamin D deficiency has been identified and supplementation is planned, with the patient maintaining stable health and denying any emergent issues. [facility] Medical History Osteopenia Lung nodules Penile ulcer History 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 History of cocaine abuse COPD (chronic obstructive pulmonary disease) Myocardial infarction Coronary atherosclerosis Kaposi's sarcoma Mixed hyperlipidemia HIV (human immunodeficiency virus infection) (Unknown) Surgical History History of coronary artery stent placement History of mandibular surgery Family History (Updated 05/04/25 @ 14:19 by Amira Bryan) Mother No problems noted. Father No problems noted. Other Diabetes Social History (Updated 05/04/25 @ 14:18 by Amira Bryan) Housing: Apartment Alcohol intake: never Patient Tobacco Use Status: Former Tobacco user e-Cigarette/Vaping Use: Currently Using service: No Current occupational status: unemployed Current occupational exposures/hazards: No Cognitive needs: No Hearing needs: No Vision needs: No Physical Exam Vital Signs: Last Vital Signs Pulse 100 06/22/25 14:12 Pulse Ox 97 06/22/25 14:12 Oxygen Delivery Method Room Air 06/22/25 14:12 BMI result Body Mass Index 26.6 Assessment & Plan Assessment & Plan (1) HIV (human immunodeficiency virus infection): Onset Date: Unknown Comment: He is doing well. Continue Biktarvy. Check CD4 count and viral load as well as syphilis,Hepatitis C testing per labs. See in six months and need to do rectal Pap then. Code(s): Z21 - Asymptomatic human immunodeficiency virus [HIV] infection status Category: Medical Qualifiers: HIV symptom status: currently asymptomatic, with history of HIV-related illness Qualified Code(s): B20 - Human immunodeficiency virus [HIV] disease Plan viral load and CD4 count before next visit in six months. Coding Level of Care Code Est Pt Level 4 (73999) Diagnoses Currently asymptomatic HIV infection, with history of HIV-related illness B20 HIV symptom status: currently asymptomatic, with history of HIV-related illness
[2025-06-22 14:12] VITALS: PULSE 100; O2SAT 97; BMI 26.6
--- OUTSIDE RECORDS SUMMARY | 2025-06-22 17:20 | XMS_ITS | Clinical Summary ---
Author Organization [facility] Address [address] [place] [address] Care Team Providers Care Coil Winding Machines Set Up Mechanic Name Role Phone Philomena Mendez Primary Care Provider [phone] Source Comments PLEASE NOTE, if this patient [...] BIKTARVY 50-200-25 mg tabIndications:A symptomatic HIV infection ([facility]) Take 1 Tablet by mouth daily. VACATION REFILL 90 Tablet 1 5 Active albuterol HFA (VENTOLIN HFA) 90 mcg/actuation inhalerIndicatio ns:Chronic obstructive pulmonary disease, unspecified COPD type ([facility]) Inhale 1-2 Puffs into the lungs every 6 (six) hours as needed for shortness of breath for up to 30 days 18 g 2 5 Active fluticasone propion-salmeter oL (ADVAIR DISKUS) 250-50 mcg/dose diskus inhalerIndicatio ns:Chronic obstructive pulmonary disease, unspecified COPD type ([facility]) Inhale 1 Puff into the lungs 2 (two) times daily 120 Each 3 5 Active atorvastatin (LIPITOR) 80 mg tabletIndication s:Coronary artery disease involving [place] heart without angina pectoris, unspecified vessel or lesion type Take 1 Tablet by mouth once daily 90 Tablet 1 5 Active apixaban (ELIQUIS) 5 mg tab Take 1 Tablet by mouth 2 (two) times daily 90 Tablet 5 Active metoprolol succinate XL (TOPROL-XL) 25 mg 24 hr tabletIndication s:Coronary artery disease involving [place] heart without angina pectoris, unspecified vessel or [...] z-score -0.6 Coronary artery disease invo lving [place] heart without angina pectoris 09/21/2022 History of COPD 09/21/2022 History of heart attack 09/21/2022 Overview (09/23/2022): [place] x1 2020- stents x 3. Sees rip tailer Dr. Trey Chavez - sees three times a year Kaposi's sarcoma, unspecified ([facility]) Chronic ulcer of left leg, l imited to breakdown of skin ([facility]) 09/21/2022 Tobacco abuse 09/21/2022 Adjustment disorder with mixed anxiety and depre ssed mood 08/15/2022 Asymptomatic HIV infection ([facility]) 02/24 Overview (04/01/2023): Dx 1985 , vale [...] SQV/IDV, low level resistance to ATR/FPV Cachexia ([facility]) 06/04/2012 History of DVT (deep vein [...] - PCV20 or PCV21) 05/18/2024 05/18/2019, 03/19/2016 Alcohol and Drug Screen 10/13/2024 09/01/2024, 09/01 Depression Annual Screen 10/13/2024 09/23/2022 Anal Cancer Screening 03/24/2025 Anal Pap 03/24/2025 03/24/2024, 08/13, 06/07/2020, Additional history exists Xty-ERERS-62 (2024- season) 2025 09/23/2022, 03/25/2022, 08/27/2021, Additional history exists Imm-Influenza (#1) 2025 07/07/2024, 1 10/21/2022, 08/27/2021, Additional history exists Diabetes Screening 09/01/2025 09/01/2024, 0 04/06/2024, 03/24/2024, Additional history exists Hypertension Screening (#1) 09/01/2025 Imm-DTaP/Tdap/Td (2 - Td or Tdap) 11/08/2029 11/08/2019 Imm-Zoster, Recombinant Discontinued 05/21/2022 Imm-Mpox (formerly Monkeypox) Completed 07/03/2022, 05/31/2022 Hepatitis C Screening Completed 01/20/2023 , 09/23/2022, 08/27/2021, Additional history exists Syphilis Screening Discontinued 03/24/2024, 0 05/19/2023, 01/20/2023, Additional history exists HRA Discontinued 05/18/2024 Imm-HIB [...] of heart attack Coronary artery disease involving [place] heart without angina pectoris, unspecified vessel or lesion type Screening for malignant neoplasm of the rectum Encounter for long-term (current) use of medications RPR Routine 03/24/2024 1:18 PM EDT Asymptomatic HIV infection ([facility]CC-CMS) History of heart attack Coronary artery disease involving [place] heart without angina pectoris, unspecified vessel or lesion type Encounter for screening for infections with a predominantly sexual mode of transmission Encounter for long-term (current) use of medications [...] EST) Hemoglobin A1c (Glycohgb) 6.7(H) <5.7 % [facility] Comment: HEMOGLOBIN A1c AND eAG REFERENCE RANGES A1c(%) DIABETES CATEGORY* <5.7 Normal (non-diabetic) 5.7-6.4 Increased risk of diabetes =>6.5 Consistent with diabetes A1c(%) eAG(ESTIMATED AVERAGE PLASMA GLUCOSE)(mg/dL) 6 126 7 154 8 183 9 212 10 240 11 269 12 298 *recommended ranges-[place] [employer](2010) NOTE: The amount of glycated [...] [facility] - BLOOD DRAW Final Result [facility] [address] [place] [address], * (ABNORMAL) > Anal cytology (anal pap) (B 6626-6) (03/24/2024 1:52 PM EDT) ANAL CYTOPATHOLOGY, THINPREP ASC-US(A) Normal [facility] Comment: DIAGNOSIS: Atypical squamous cells of [...] 1:52 PM EDT 03/24/2024 10:49 PM EDT Philomenaamy Mendez LAB - PATHOLOGY AND CYTOLOGY AMB ULATORY Final Result Performing Organization Address City/[facility]/ZIP Co de Phone Number [facility] [address] [place] [address] [place] [address], [place] [phone] * > RPR w/reflex to TPA (B 0142-0) (03/24/2024 1:18 PM EDT) Pathologist [facility] RPR Serology Non-Reacti ve Non-React rory {titer} [facility] Blood Blood / Unknown 03/24/2024 1 :18 PM EDT 03/24/2024 9:34 PM EDT Philomena Mendez LAB - BLOOD DRAW Final Result Performing Organization Address [facility]/ZIP Co de Phone Number [facility] [address] [place] [address] [place] [address], [place] [phone] * HEP C ANTIBODY W/REFLEX TO HCV RNA QUANT PCR (01/20/2023 3:58 PM EDT) [facility] HCV AB Non Reactive Non Reactive [facility] Blood Blood / Unknown 01/20/2023 3 :58 PM EDT 01/20/2023 Narrative [facility] - 01/21/2023 7:06 AM EDT Performed at: 01 - [facility] [id number] Geospatial Image Analyst: Lou Aldana MD, Phone: [phone] Danylel Mitchell [facility] - BLOOD DRAW Final Result Performing Organization Address City/[facility]/ZIP Co de Phone Number [facility] * LIPID PANEL ([id number]) (09/23/2022 2:54 PM EST) CHOLESTEROL, TOTAL 161 100 - 199 mg/dL [facility] TRIGLYCERIDES 85 0 - 149 mg/dL [facility] HDL CHOLESTEROL 48 >39 mg/dL [facility] VLDL CHOLESTEROL KECIA 16 5 - 40 mg/dL [facility] LDL CHOL CALC ([facility]) 97 0 - 99 mg/dL [facility] Blood Blood / Unknown 09/23/2022 2 :54 PM EST 09/23/2022 Narrative [facility] - 09/24/2022 3:06 AM EST Performed at: 01 - [facility] [address] [id number] Geospatial Image Analyst: Lilli Caruso MD, Phone: [phone] Danyell Mitchell [facility] - BLOOD DRAW Final Result [facility] from Last 3 Months or Most Recently Relevant to Health Maintenance Insurance [facility] Member Subscriber Plan / Payer (Ef fective 2016-Present) Name:Dez Aaron Relation to Subscriber:Self Name:Dez Aaron Payer ID:[id number] Group ID:Not on file Type:[employer] Medicaid Address: [address] [place] [id number] [employer] MEDICAID DENTAL [facility] Medicaid Address: [address] [place] [id number] [facility] Member Subscriber Plan / Payer (Ef fective 2016-Present) Name:Dez Aaron Relation to Subscriber:Self Name:Dez Aaron Payer ID:[id number] Group ID:Not on file Type:Medicaid Address: [address] [address] Care Teams Coil Winding Machines Set Up Mechanic Relationship Specialty Start Date End Date Philomena Mendez [address] [place] [address] PCP - General SODA FOUNTAIN MANAGER Nurse Practitioner 06/04/23
--- OUTSIDE RECORDS SUMMARY | 2025-06-22 17:20 | XMS_ITS | Encounter Summary ---
Author Organization [facility] Address [address] [place] [address] Care Team Providers Care Sole Molder Name Role Phone Philomena Mendez Primary Care Provider [phone] Reason for Visit * Reason Comments Office Visit: Converted Data Conversion Encounter Details Date Type Department Care Team (Late st Contact Info) Description 08/06/2022 Dental Interim Note [facility] [address] [address] Default, Provider [place] Social History Tobacco Use Types Packs/Day Years [...] on filedocumented in this encounter Care Teams Sole Molder Relationship Specialty Start Date End Date Philomena Mendez [address] [place] [address] PCP - General FINISHER MAP AND CHART Nurse Practitioner 06/04/23 documented as of this encounter
== END 2025-06-22 14:49 | disposition home or self-care (01) ==
LOC: HO.HID 14:07
PROVIDERS: PCP Internal Medicine Geriatric Medicine; Visit Provider Internal Medicine
DX: B20 Human immunodeficiency virus [HIV] disease (principal)
CPT/HCPCS: 99214

== ENCOUNTER → 2025-06-22 14:07 | Outpatient (BNVA) | payer MEDICAID, SELFPAY | PROVIDERS: PCP Internal Medicine Geriatric Medicine; Visit Provider Internal Medicine | DX: B20 Human immunodeficiency virus [HIV] disease (principal) | CPT/HCPCS: 99212 ==

== ENCOUNTER → 2025-07-28 09:40 | Outpatient (BNV) | payer MEDICAID, SELFPAY | PROVIDERS: PCP Internal Medicine Geriatric Medicine; Referring Provider Internal Medicine Geriatric Medicine; Visit Provider Internal Medicine | DX: Z85.831 Personal history of malignant neoplasm of soft tissue (principal) | CPT/HCPCS: 99204 ==

== ENCOUNTER 2025-08-04 14:10 | Outpatient (AMB) | payer MEDICAID, SELFPAY ==
--- NOTE | 2025-08-04 14:19 | A.OFFVIS_ITS ---
Vital Signs 08/04/25 14:20 Height 5 ft 7 in Weight 159 lb 2.78 oz BMI 24.9 BP 108/52 L Blood Pressure Location Lt brachial Position Sitting Pulse 90 Pulse Source Pulse Oximeter Intake Visit Reasons: 3 mth f/up Mangle Roller Required: No Accompanied by: Self / Same As Patient Allergies No Known Allergies Allergy (Verified 08/04/25 14:23) Medication List - Last Reconciled 08/04/25 by Kb Euceda NP albuterol sulfate 90 mcg/actuation (Ventolin HFA) 2 puffs inhalation Q6H PRN ammonium lactate 12% appl topical apixaban (Eliquis) 5 mg PO BID atorvastatin 80 mg PO DAILY azithromycin 250 mg PO BID mfybvbicn-ywgebjtm-qlxcchd ala 50-200-25 mg (Biktarvy) 1 tab PO DAILY 90 days ezetimibe 10 mg PO DAILY fluticasone propion-salmeterol 250-50 mcg/dose (Advair Diskus) 1 inh inhalation BID isosorbide mononitrate ER 30 mg PO DAILY metformin 500 mg PO BID 90 days metoprolol succinate ER 25 mg PO DAILY multivitamin with folic acid 400 mcg (Tab-A-Landon) 1 tab PO DAILY 90 days prednisone 20 mg PO BID valacyclovir (Valtrex) 1,000 mg PO TID 7 days HPI Comments Details: This is a 64-year-old male patient coming in for a follow-up visit. Patient with a history of coronary artery disease status post PCI to LAD, circumflex, and RCA in 2020. Patient also with a history of hyperlipidemia, and DVT on Eliquis. Today, patient reports that lately he has been having intermittent blood in his urine and is following with Urology for this and seems to have history of penile lesion as well. Patient is otherwise denying any cardiac symptoms of exertional chest pain, shortness of breath, palpitations, dizziness, orthopnea, PND, leg edema, presyncope or syncope. Patient is reporting compliance with all his medications. [facility] Medical History History of DC (myocardial infarction) Microscopic hematuria Kaposi sarcoma Ischemic cardiomyopathy Personal history of nicotine dependence Osteopenia Lung nodules Penile ulcer History 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 History of cocaine abuse COPD (chronic obstructive pulmonary disease) Coronary atherosclerosis Kaposi's sarcoma Mixed hyperlipidemia HIV (human immunodeficiency virus infection) (Unknown) Surgical History History of coronary artery stent placement History of mandibular surgery Family History Mother Anemia Father No problems noted. Brother Diabetes Social History Household Members: None Housing: Apartment Alcohol intake: never Patient Tobacco Use Status: Former Tobacco user e-Cigarette/Vaping Use: Currently Using service: No Current occupational status: unemployed and disabled Current occupational exposures/hazards: No Cognitive needs: No Hearing needs: No Vision needs: No Review of Systems Const Denies daytime sleepiness, Denies difficulty sleeping, Denies snoring, Denies stops breathing during sleep and Denies weakness Card Denies chest pain, Denies rapid heart rate, Denies irregular heart rhythm, Denies claudication, Denies leg edema, Denies lightheadedness, Denies palpitations, Reports dyspnea, Denies dyspnea on exertion, Denies orthopnea, Denies paroxysmal nocturnal dyspnea and Denies slow heart rate Resp Denies cough, Reports dyspnea, Denies dyspnea on exertion and Denies snoring GI Reports no additional complaints, Denies hematochezia, Denies change in stool character and Denies dyspepsia Musc Denies abnormal gait, Denies muscle weakness and Denies numbness Neuro Denies abnormal gait, Denies numbness and Denies weakness Endo Denies palpitations Physical Exam Vital Signs: Last Vital Signs Pulse 90 08/04/25 14:20 BP 108/52 L 08/04/25 14:20 BMI result Body Mass Index 24.9 Const General: cooperative, healthy appearing, comfortable and no acute distress Orientation/consciousness: patient oriented x3 HEENT Head: Yes normal to inspection Neck Neck: Yes normal visual inspection, Yes trachea midline and Yes supple Chest Chest palpation & inspection: normal inspection of the chest Resp Effort & Inspection: normal respiratory effort Auscultation: clear to auscultation bilaterally, no crackles, no rales, no rhonchi and no wheezes Cardio Jugular venous distension: no JVD Palpation: normal PMI Rate: regular rate Rhythm: regular rhythm Heart sounds: S1 normal heart sound present, S2 normal heart sound present, no click, no gallops, no murmurs and no rubs Peripheral pulses: Peripheral pulses 2+ throughout GI Inspection: Yes normal to inspection Palpation (GI): Soft to palpation Auscultation: normal bowel sounds Skin General skin exam: no rashes or lesions noted Neuro General: patient oriented x3 Extrem General: Yes normal to inspection, No no pedal edema and No calf tenderness Psych Appearance: grossly normal Mental Status: mental status grossly normal Speech and movement: Normal speech and movement present Assessment & Plan Assessment & Plan (1) Ischemic cardiomyopathy: Code(s): I25.5 - Ischemic cardiomyopathy Category: Medical Plan: In 2020 patient had an acute DC and underwent cardiac catheterization with a multivessel PCI to LAD, circumflex, and LAD. 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 06/03/2025-echo study showed a normal LV systolic function with an ejection fraction between 55-60% with grade 1 diastolic dysfunction with regional wall motion suggestive of underlying coronary artery disease. Clinically stable without any cardiac symptoms. Patient was previously on aspirin therapy however with his history of DVT, patient was switched to Eliquis. Continue Eliquis therapy. Patient is currently denying any hematuria but has had intermittent hematuria for which patient is following with Urology. Recent H&H is stable. Patient also notes that he does not drink enough water and discussed kidney stones as 1 of the possible causes and therefore adequate hydration was advised with at least 30-40oz a day. Continue atorvastatin and Zetia therapy with an LDL goal less than 70. Most recent LDL at 80. Advised on diet and exercise. Continue isosorbide and metoprolol therapy as well. We will monitor labs periodically. Advised to seek ER care in case of exertional chest pain not resolved with rest. (2) Atherosclerotic cardiovascular disease: Code(s): I25.10 - Atherosclerotic heart disease of [place] coronary artery without angina pectoris Category: Medical Plan: As above. (3) Mixed hyperlipidemia: Code(s): E78.2 - Mixed hyperlipidemia Category: Medical Plan: As above. Advised heart healthy diet, regular exercise, med compliance, and aggressive management of vascular risk factors. Follow up in 6 months. In the interim, patient will call the office with any concerns or change in symptoms. This note was generated using voice recognition software. While every effort has been made to ensure accuracy and proper slicing machine operator, there may be occasional errors that could affect the content or meaning of the described symptoms. Orders: Orders Basic Metabolic Panel 5 Months I25.10 - Atherosclerotic heart disease of [place] coronary artery without angina pectoris Complete Blood Count no Diff 5 Months I25.10 - Atherosclerotic heart disease of [place] coronary artery without angina pectoris Lipid Panel 5 Months I25.10 - Atherosclerotic heart disease of [place] coronary artery without angina pectoris Coding Level of Care Code Est Pt Level 4 (30137) Complex EM visit Add On G2211 Diagnoses Ischemic cardiomyopathy I25.5 Atherosclerotic cardiovascular disease I25.10 Mixed hyperlipidemia E78.2 Time Spent (min) 32 Comment Time spent in reviewing the chart, test results, assessment, counseling and documentation.
[2025-08-04 14:20] VITALS: BP 108/52; PULSE 90; BMI 24.9
--- OUTSIDE RECORDS SUMMARY | 2025-08-04 18:01 | XMS_ITS | Clinical Summary ---
Author Organization [facility] Address [address] [place] [address] Care Team Providers Care Lead Burner Supervisor Name Role Phone Philomena Mendez Primary Care Provider [phone] Source Comments PLEASE NOTE, if this patient [...] BIKTARVY 50-200-25 mg tabIndications:A symptomatic HIV infection Take 1 Tablet by mouth daily. VACATION REFILL 90 Tablet 1 5 Active albuterol HFA (VENTOLIN HFA) 90 mcg/actuation inhalerIndicatio ns:Chronic obstructive pulmonary disease, unspecified COPD type Inhale 1-2 Puffs into the lungs every 6 (six) hours as needed for shortness of breath for up to 30 days 18 g 2 5 Active fluticasone propion-salmeter oL (ADVAIR DISKUS) 250-50 mcg/dose diskus inhalerIndicatio ns:Chronic obstructive pulmonary disease, unspecified COPD type Inhale 1 Puff into the lungs 2 (two) times daily 120 Each 3 5 Active atorvastatin (LIPITOR) 80 mg tabletIndication s:Coronary artery disease involving [place] heart without angina pectoris, unspecified vessel or lesion type Take 1 Tablet by mouth once daily 90 Tablet 1 5 Active apixaban (ELIQUIS) 5 mg tab Take 1 Tablet by mouth 2 (two) times daily 90 Tablet 5 Active metoprolol succinate XL (TOPROL-XL) 25 mg 24 hr tabletIndication s:Coronary artery disease involving [place] heart without angina pectoris, unspecified vessel or [...] left leg, limited to breakdown of skin APPLY TOPICALLY DAILY NEEDED FOR DRY SKIN [...] z-score -0.6 Coronary artery disease invo lving [place] heart without angina pectoris 09/21/2022 History of COPD 09/21/2022 History of heart attack 09/21/2022 Overview (09/23/2022): [place] x1 2020- stents x 3. Sees regional controller Dr. Trey Chavez - sees three times a year Kaposi's sarcoma, unspecified 09/21/2022 Chronic ulcer of left leg, limited to breakdown of skin 09/21/2022 Tobacco abuse 09/21/2022 Adjustment disorder with mixed anxiety and depre ssed mood 08/15/2022 Asymptomatic HIV infection 02/24/2014 Overview (04/01/2023): Dx 1986 , vale [...] SQV/IDV, low level resistance to ATR/FPV Cachexia 06/04/2012 History of DVT (deep vein thrombosis) [...] 03/24/2025 03/24/2024, 08/13, 06/07/2020, Additional history exists [id number]-99 ( season) 2025 09/23/2022, 03/25/2022, 08/27/2021, Additional history [...] of heart attack Coronary artery disease involving [place] heart without angina pectoris, unspecified vessel or lesion type Screening for malignant neoplasm of the rectum Encounter for long-term (current) use of medications RPR Routine 03/24/2024 1:18 PM EDT Asymptomatic HIV infection (HCC-CMS) History of heart attack Coronary artery disease involving [place] heart without angina pectoris, unspecified vessel or [...] EST) Hemoglobin A1c (Glycohgb) 6.7(H) <5.7 % [email or web address] Comment: HEMOGLOBIN A1c AND eAG REFERENCE RANGES A1c(%) DIABETES CATEGORY* <5.7 Normal (non-diabetic) 5.7-6.4 Increased risk of diabetes =>6.5 Consistent with diabetes A1c(%) eAG(ESTIMATED AVERAGE PLASMA GLUCOSE)(mg/dL) 6 126 7 154 8 183 9 212 10 240 11 269 12 298 *recommended ranges-[place] [employer](2010) NOTE: The amount of glycated [...] Mendez [facility] - BLOOD DRAW Final Result [facility] [address] [place] [address], * (ABNORMAL) > Anal cytology (anal pap) (B 6626-6) (03/24/2024 1:52 PM EDT) Pathologist [facility] ANAL CYTOPATHOLOGY, THINPREP ASC-US(A) Normal [email or web address] Comment: DIAGNOSIS: Atypical squamous cells of [...] AMB ULATORY Final Result Performing Organization Address [facility]ZIP Co de Phone Number [employer] [address] [place] [address] [place] [address], [place] [phone] * > RPR w/reflex to TPA (B 0142-0) (03/24/2024 1:18 PM EDT) Pathologist [facility] RPR Serology Non-Reacti ve Non-React rory {titer} [facility] Blood Blood / Unknown 03/24/2024 1 :18 PM EDT 03/24/2024 9:34 PM EDT Philomena Mendez LAB - BLOOD DRAW Final Result Performing Organization Address [facility] de Phone Number [facility] [address] [place] [address] [place] [address], [place] [phone] * HEP C ANTIBODY W/REFLEX TO HCV RNA QUANT PCR (01/20/2023 3:58 PM EDT) Pathologist [facility] HCV AB Non Reactive Non Reactive [facility] Blood Blood / Unknown 01/20/2023 3 :58 PM EDT 01/20/2023 Narrative [facility] - 01/21/2023 7:06 AM EDT Performed at: [address] [place] [id number] Personal Financial Planner: Lou Aldana MD, Phone: [phone] Danyell Mitchell [facility] - BLOOD DRAW Final Result Performing Organization Address [facility]ZIP Co de Phone Number [facility] * LIPID PANEL ([id number]) (09/23/2022 2:54 PM EST) Pathologist [facility] CHOLESTEROL, TOTAL 161 100 - 199 mg/dL [facility] TRIGLYCERIDES 85 0 - 149 mg/dL [facility] HDL CHOLESTEROL 48 >39 mg/dL [facility] VLDL CHOLESTEROL KECIA 16 5 - 40 mg/dL [facility] LDL CHOL CALC ([facility]) 97 0 - 99 mg/dL [facility] Blood Blood / Unknown 09/23/2022 2 :54 PM EST 09/23/2022 Narrative [facility] - 09/24/2022 3:06 AM EST Performed at: 01 - [facility] [address] [id number] Personal Financial Planner: Lilli Caruso MD, Phone: [phone] Danyell Mitchell [facility] - BLOOD DRAW Final Result [facility] from Last 3 Months or Most Recently Relevant to Health Maintenance [facility] Member Subscriber Plan / Payer (Ef fective 2016-Present) Name:Dez Aaron Relation to Subscriber:Self Name:Dez Aaron Payer ID:[id number] Group ID:Not on file Type:Managed Medicaid Address: [facility] [address] [place], [place] [id number] [employer] MEDICAID DENTAL [facility] Member Subscriber Plan / Payer (Ef fective 2016-Present) Name:Dez Aaron Relation to Subscriber:Self Name:Dez Aaron Payer ID:[id number] Group ID:Not on file Type:Medicaid Address: [address] [place] [address] Care Teams Lead Burner Supervisor Relationship Specialty Start Date End Date Philomena Mendez [address] [place] [address] PCP - General AUTOMOTIVE PARTS COUNTER PERSON Nurse Practitioner 06/04/23
--- OUTSIDE RECORDS SUMMARY | 2025-08-04 18:01 | XMS_ITS | Encounter Summary ---
Author Organization [facility] Address [address] [place] [address] Care Team Providers Care Scalemaker Name Role Phone Philomena Mendez Primary Care Provider [phone] Reason for Visit * Reason Comments Office Visit: Converted Data Conversion Encounter Details Date Type Department Care Team (Late st Contact Info) Description 08/06/2022 Dental Interim Note [facility] [address] [address] Default, Provider [place] Social History Tobacco Use Types Packs/Day Years [...] on filedocumented in this encounter Care Teams Scalemaker Relationship Specialty Start Date End Date Philomena Mendez [address] [place] [address] PCP - General ROOF FITTER Nurse Practitioner 06/04/23 documented as of this encounter
== END 2025-08-04 14:58 | disposition home or self-care (01) ==
LOC: HO.HCS 14:11
PROVIDERS: PCP Internal Medicine Geriatric Medicine
DX: I25.5 Ischemic cardiomyopathy (principal); I25.10 Atherosclerotic heart disease of native coronary artery without angina pectoris; E78.2 Mixed hyperlipidemia
CPT/HCPCS: 99214

== ENCOUNTER → 2025-08-04 14:10 | Outpatient (BNVA) | payer MEDICAID, SELFPAY | PROVIDERS: PCP Internal Medicine Geriatric Medicine | DX: I25.10 Atherosclerotic heart disease of native coronary artery without angina pectoris (principal); I25.5 Ischemic cardiomyopathy; E78.2 Mixed hyperlipidemia | CPT/HCPCS: 99212 ==

== ENCOUNTER 2025-09-06 09:39 | Outpatient (REF) | payer MEDICAID, SELFPAY | END 2025-09-06 09:40 | disposition home or self-care (01) | LOC: HO.LAB 09:39 | PROVIDERS: Visit Provider Urology | DX: E78.2 Mixed hyperlipidemia (principal); R31.29 Other microscopic hematuria; Z13.89 Encounter for screening for other disorder | CPT/HCPCS: 88112 ==

== ENCOUNTER 2025-09-06 09:39 | Outpatient (AMB) | payer MEDICAID, SELFPAY ==
--- NOTE | 2025-09-06 10:05 | A.OFFVIS_ITS ---
Intake Visit Reasons: intermittent hematuria Intake Note: Patient is present for INTERMITTENT HEMATURIA Urology Medication:VALTREX Antibiotic Allergy:NONE Blood Thinner:[employer]IX[employer]AN Electrical [employer] Required: No Allergies No Known Allergies Allergy (Verified 09/06/25 10:06) HPI Comments Details: Dez is a pleasant male. He is a patient of Dr. Nuñez. He is seen for the following urologic issues - microscopic hematuria Background significant for HIV, Kaposi sarcoma, had moved from [facility] a number of years ago. Current issue microscopic hematuria Long-term smoker Has been on Eliquis 5 mg p.o. b.i.d. for 2 years Did have prior stenting but for reasons that are unclear has been kept on anticoagulation He reports never having seen hematuria Discussed workup including upper tract imaging with lower tract cystoscopy At this point he would prefer to defer and he will talk to the clinical rn about coming off anticoagulation Labs - 01/04 PSA 1.8, T 400 PFSH Medical History History of [place] (myocardial infarction) Microscopic hematuria Kaposi sarcoma Ischemic cardiomyopathy Personal history of nicotine dependence Osteopenia Lung nodules Penile ulcer History 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 History of cocaine abuse COPD (chronic obstructive pulmonary disease) Coronary atherosclerosis Kaposi's sarcoma Mixed hyperlipidemia HIV (human immunodeficiency virus infection) (Unknown) Surgical History History of coronary artery stent placement History of mandibular surgery Family History Mother Anemia Father No problems noted. Brother Diabetes Social History Household Members: None Housing: Apartment Alcohol intake: never Patient Tobacco Use Status: Former Tobacco user e-Cigarette/Vaping Use: Currently Using service: No Current occupational status: unemployed and disabled Current occupational exposures/hazards: No Cognitive needs: No Hearing needs: No Vision needs: No Review of Systems Const Denies chills and Denies fever(s) Card Reports no additional complaints and Denies syncope Resp Denies cough GI Denies abdominal pain and Denies heartburn Reports as per HPI and Denies change in libido Neuro Denies syncope Psych Denies change in libido Endo Denies change in libido Physical Exam Const General: cooperative, healthy appearing, comfortable and no acute distress Orientation/consciousness: patient oriented x3 HEENT Face and sinus: Yes normal facial exam Mouth: moist mucous membranes Neck Neck: Yes normal visual inspection, Yes full ROM and Yes trachea midline Chest Chest palpation & inspection: normal inspection of the chest Resp Effort & Inspection: normal respiratory effort, able to speak in complete sentences and no respiratory distress GI Inspection: Yes normal to inspection Back/Spine/Pelvis Cervical Spine: normal cervical lordosis Thoracic/Lumbar Spine: thoracic and lumbar spine normal to inspection Skin General skin exam: no rashes or lesions noted Neuro General: patient oriented x3, gait normal, tone normal and moves all extremities Extrem General: Yes normal to inspection and Yes capillary refill normal Results AMB Urinalysis, Automated UA Leukoctes 70 Ted/uL Last Edit by STEPAN Douglas on 09/06/25 10:12 UA Nitrite Negative Last Edit by STEPAN Douglas on 09/06/25 10:12 UA Urobilinogen 0.2 mg/dL Last Edit by STEPAN Douglas on 09/06/25 10:1 2 UA Protein 100 mg/dL Last Edit by STEPAN Douglas on 09/06/25 10:12 UA pH 6.0 Last Edit by STEPAN Douglas on 09/06/25 10:12 UA Blood 200 Fletcher/uL Last Edit by Humberto Amezcua CCM on 09/06/25 10:12 UA Specific [place] 1.025 Last Edit by STEPAN Douglas on 09/06/25 10: 12 UA Ketone Negative Last Edit by Humberto Amezcua CCM on 09/06/25 10:12 UA Bilirubin 0 mg/dL Last Edit by STEPAN Douglas on 09/06/25 10:12 UA Glucose 0 mg/dL Last Edit by STEPAN Douglas on 09/06/25 10:12 Results Reviewed Results Reviewed: Laboratory Last Values Urine pH (Auto) 6.0 09/06/25 10:09 Specific [place] (Auto) 1.025 09/06/25 10:09 Urine Protein (Auto) 100 mg/dL 09/06/25 10:09 Glucose (UA)(Auto) 0 mg/dL 09/06/25 10:09 Urine Ketones (Auto) Negative 09/06/25 10:09 Urine Blood (Auto) 200 Fletcher/uL 09/06/25 10:09 Urine Nitrite (Auto) Negative 09/06/25 10:09 Urine Bilirubin (Auto) 0 mg/dL 09/06/25 10:09 Urine Urobilinogen (Auto) 0.2 mg/dL 09/06/25 10:09 Leukocyte Esterase (Auto) 70 Ted/uL 09/06/25 10:09 Assessment & Plan Assessment & Plan (1) Microscopic hematuria: Code(s): R31.29 - Other microscopic hematuria Category: Medical Plan Six-month follow-up check UA Orders: Orders AMB Urinalysis Automated Today Z13.9 - Encounter for screening, unspecified Urine Cytology Today E78.2 - Mixed hyperlipidemia Patient Instructions: This note is constructed using voice recognition software. While every effort has been made to ensure accuracy hydrology professor errors may have been included. Imaging studies, laboratory and physical exam results were discussed and reviewed in detail. No major barriers to patient understanding were identified. An opportunity to ask questions regarding the treatment plan was provided. All questions were answered. The patient expressed understanding and agreement with the above treatment plan. The patient is aware they should contact our office by phone for worsening of their current condition or the appearance of new urologic symptoms. Compliance is encouraged with any medications and followup testing that is ordered. It is a privilege to participate in the urologic care of your patient. If you have any questions or concerns regarding treatment for the above conditions, or other urologic issues, please do not hesitate to contact me. The office telephone contact is [phone]. Sincerely, Dr Taiwo Sanchez MD, [facility] - Urology Compassionate Specialist Care for the Genitourinary System Coding Level of Care Code Est Pt Level 3 (98234) Diagnoses Microscopic hematuria R31.29
== END 2025-09-06 10:52 | disposition home or self-care (01) ==
LOC: HO.HUSH 09:39
PROVIDERS: Visit Provider Urology
DX: R31.29 Other microscopic hematuria (principal); Z13.9 Encounter for screening, unspecified
CPT/HCPCS: 99213

== ENCOUNTER 2025-09-30 10:46 | Outpatient (AMB) | payer MEDICARE, MEDICAID, SELFPAY ==
--- NOTE | 2025-09-30 08:00 | MHC.OFFVIS ---
Intake Visit Reasons: Former Smoker Allergies No Known Allergies Allergy (Verified 09/06/25 10:06) HPI HPI Former Smoker: Details: Initial visit for this 65yo smoker with a 25PYH. Patient started smoking at age 14 for 50years at 1/2ppd. He quit cigarettes 09/15/24 and currently vapes. . Denies marijuana use. Denies second hand smoke exposure. Denies exposure to chemicals or substances like asbestos. . Denies known family history of lung cancer. Personal history of cancers. Karposi Sarcoma, HIV Denies chest CT in last year. . Denies recent travel outside the [place]. Denies recent respiratory illness or recent hospitalization for respiratory issues. Denies testing positive for COVID. Denies receiving COVID Vaccine. . History hematuria followed by Urology Dr. Daniel guevara for DVT. Denies fever, chills, new/worsening cough, hemoptysis, hoarseness or dysphagia. Denies significant chest pain, significant dyspnea or unintentional weight loss. Patient Lung Cancer Screening Questionnaire reviewed with patient by provider. . Shared Decision Making Completed. Patient meets criteria. Discussed in detail with patient, the risk vs benefit of LDCT screening. Patient consents to proceed with scan. Discussed smoking cessation. [facility] Medical History (Updated 09/30/25 @ 10:58 by Carey Maria PA-C) History of [place] (myocardial infarction) Microscopic hematuria Kaposi sarcoma Ischemic cardiomyopathy Personal history of nicotine dependence Osteopenia Lung nodules Penile ulcer History 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 History of cocaine abuse COPD (chronic obstructive pulmonary disease) Coronary atherosclerosis Mixed hyperlipidemia HIV (human immunodeficiency virus infection) (Unknown) Surgical History History of coronary artery stent placement History of mandibular surgery Family History Mother Anemia Father No problems noted. Brother Diabetes Social History (Updated 09/30/25 @ 10:58 by Carey Maria PA-C) Household Members: None Housing: Apartment Alcohol intake: never Patient Tobacco Use Status: Former Tobacco user Years Smoked: (onset 14yo, 1/2ppd x 50yrs, 25pyh - quit cigs 09/15/24 - now vapes) e-Cigarette/Vaping Use: Currently Using service: No Current occupational status: unemployed and disabled Current occupational exposures/hazards: No Cognitive needs: No Hearing needs: No Vision needs: No Assessment & Plan Assessment & Plan (1) Personal history of nicotine dependence: Comment: (onset 14yo, 1/2ppd x 50yrs, 25pyh - quit cigs 09/15/24 - now vapes) Code(s): Z87.891 - Personal history of nicotine dependence Category: Medical Plan: - SDM visit completed today in office. - Patient meets criteria for LDCT for lung cancer screening purposes and is asymptomatic. - Smoking cessation counseling offered. Patients can always call [phone]. - Will arrange for a LDCT scan of the chest for screening purposes at [facility]. - Risks, benefits, and alternatives were discussed in detail and the patient agrees to proceed. - Risks discussed include but are not limited to: radiation exposure, anxiety during testing and while awaiting results, false negatives, false positives and possibility of additional intervention such as further imaging or surgical procedures for benign disease. - Benefits are obviously detection of lung cancer at an early stage which can lead to improved outcomes. - Discussed the importance of screening program compliance with adherence to yearly LDCT scan as scheduled - or sooner interval scans for personalized screening regimen. - Discussed follow up plan. Our office will send a letter discussing results and if needed set up phone call and office visit based on CT findings. - Patient educated on results categorization and the management decisions for suspicious findings potentially found on the screening LDCT scan. Any patient with a Lung RADS score of 3 or 4 will be reviewed by a multidisciplinary team at [facility] to form a plan of action in regards to scan findings. - If further work up is warranted for a suspicious lung finding this will be followed by the Lung Cancer Screening program in conjunction with the Thoracic Surgery Department at [facility]. - A copy of the office note and LDCT will be sent to the patient's PCP - as well as documentation on any associated further plans of care. - Incidental findings on LDCT are the PCP's responsibility. These findings are indicated with an S finding on the LDCT Assessment. A note discussing the findings will be sent to the PCP who is then responsible for further management. - All questions answered.? Plan Of Note For PCP: The USPTF recommends all men aged 65-75 who have ever smoked have a one time Abdominal Ultrasound to screen for AAA. Recommend if not done prior. Coding Level of Care Code Lung Cancer Screening G0296 Diagnoses Personal history of nicotine dependence Z87.897
== END 2025-09-30 11:41 | disposition home or self-care (01) ==
LOC: HO.HPS 10:47
PROVIDERS: PCP Internal Medicine Geriatric Medicine; Referring Provider Internal Medicine Geriatric Medicine; Visit Provider Physician Assistant Medical
DX: Z87.891 Personal history of nicotine dependence (principal)
CPT/HCPCS: G0296

== ENCOUNTER 2025-09-30 11:07 | Outpatient (REF) | payer MEDICAID, SELFPAY ==
--- NOTE | ~2025-09-30 | CT_ITS ---
EXAMINATION: CT LOW-DOSE SCREENING CHEST WITHOUT CONTRAST CLINICAL INFORMATION: Former smoker, 65-year-old male, quit 1 year ago, 50 pack years, lung cancer screening. COMPARISON: No prior available. TECHNIQUE: Multidetector volumetric CT imaging of the chest is performed on a Siemens SOMATOM Definition scanner without contrast using low dose technique. Additional 2D coronal and sagittal reformatted images and axial 3D maximum intensity projection (MIP) images are generated on the CT workstation. This CT examination was performed using dose optimization techniques as appropriate, variously including the following: *Automated exposure control *Adjustment of mA and/or kV according to patient size (this includes techniques or standardized protocols for targeted exams where dose is matched to indication/reason for exam; i.e. extremities or head) *Use of iterative reconstruction technique FINDINGS: PULMONARY NODULES: There are a few scattered tiny calcified granulomata, benign. 3 mm nodule in the posterior right upper lobe (series 4, image 34), possibly a region of nodular scarring. 2 mm nodule anterolateral right upper lobe (series 4, image 64). 2 mm nodule superior segment right lower lobe (series 4, image 67). 4 mm nodule lateral right middle lobe (series 4, image 100). 3 mm nodule anterolateral right lower lobe (series 4, image 106). 4 mm nodule superior segment left lower lobe (series 4, image 75). 4 mm nodule left lower lobe (series 4, image 106). LUNGS: Moderate to severe centrilobular emphysema with apical bullous changes right greater than left. Foci of parenchymal scarring in both subpleural lower lobes, lingula, and right middle lobe. Clustered tree-in-bud/centrilobular micronodules in the left upper lobe, in keeping with infectious or inflammatory abnormality. Diffuse thickening of the small airways, suggesting chronic bronchitis. Mild associated bronchiectasis. No consolidations or pneumonic opacities. No interstitial disease. No effusion or pneumothorax. MEDIASTINUM: Normal thyroid. No abnormal mediastinal adenopathy or mass. Aorta is nonaneurysmal with moderate calcification. Main pulmonary artery is mildly prominent, but not pathologically enlarged, with the pulmonary trunk measuring 3.0 cm diameter. The heart size is normal. No pericardial effusion. There is a small type I hiatus hernia. Esophagus is otherwise normal. Central airways are patent. There is a saber-sheath trachea. CORONARY ARTERY CALCIFICATION: Heavy. CHEST WALL/AXILLA: No abnormal lymph nodes or masses. Reactive appearing axillary nodes. UPPER ABDOMEN: Included upper abdominal contents appear normal allowing for low-dose noncontrast technique. OSSEOUS STRUCTURES: There are numerous fat-containing hemangiomas throughout the spine. These are benign, and mimic lytic lesions. There is no suspicious bone lesion evident. There are mild spinal degenerative changes. CT/CT lung screening IMPRESSION: 1. There are scattered pulmonary nodules measuring up to 4 mm. There are no suspicious nodules present. 2. There are moderate to severe changes of emphysema with upper lobe bullous changes. 3. There is diffuse thickening of the small airways suggesting chronic bronchitis. 4. There are clustered micronodules/tree-in-bud nodules in the left upper lobe, suggesting infectious/inflammatory abnormality. 5. There are heavy coronary calcifications. ASSESSMENT: 1. Lung-RADS Category 2: Benign appearance or behavior of nodules. 2. Lung-RADS Category S: None. RECOMMENDATION: Continued routine annual low-dose CT lung screening in 1 year is recommended. An order for CT CHEST LOW DOSE CANCER SCREENING ([id number]) can be placed. Electronically signed by: Salvatore Saini MD 09/30/2025 11:57 AM [facility]
== END 2025-09-30 11:08 | disposition home or self-care (01) ==
LOC: HO.CT 11:07
PROVIDERS: PCP Internal Medicine Geriatric Medicine; Visit Provider Physician Assistant Medical
DX: Z12.2 Encounter for screening for malignant neoplasm of respiratory organs (principal); Z87.891 Personal history of nicotine dependence
CPT/HCPCS: 71271; G0296

== ENCOUNTER → 2025-09-30 11:09 | Outpatient (BNV) | payer MEDICAID, SELFPAY | PROVIDERS: PCP Internal Medicine Geriatric Medicine; Visit Provider Radiology Diagnostic Radiology | DX: Z87.891 Personal history of nicotine dependence (principal) | CPT/HCPCS: 71271 ==